=== PATIENT | female | born 1975 | race Caucasian/White ===

== ENCOUNTER 2017-01-05 04:50 | Emergency (ER) | payer MEDICAID, OTHER ==
[~2017-01-05 04:50] MED LIST: DITR5TAB PO; FERR324T2 PO; GLYB5TA PO; LISI10TA4 PO; METF1000 PO; OMEP20CA3 PO; SIMV5TAB4 PO; SUCR1SS PO; TYLE325T5 PO
[2017-01-05] MEDS ORDERED: NS 1,000 ML IV ONE (06:15)
[2017-01-05] MEDS ORDERED: MORPHINE 4 MG/ML 1ML SYRINGE IV ONE ×3 (06:15→10:15)
[2017-01-05] MEDS ORDERED: METOCLOPRAMIDE INJ 10MG/2ML VIAL (J2765) IV ONE (06:15)
[2017-01-05 06:41] LABS: BASO % 0.3 % (0.0-1.0); EOS # 0.2 K/mm3 (0.0-0.50); EOS % 0.8 % (0.0-3.0); LARGE UNSTAINED CELL # 0.3 K/mm3 (0.0-0.4); LARGE UNSTAINED CELL % 1.4 % (0.0-4.0); LYMPH # 2.3 K/mm3 (1.5-4.5); LYMPH % 12.4 % (24.0-44.0); MEAN CORPUSCULAR HEMOGLOBIN 24.8 pg (27.0-33.0); MEAN CORPUSCULAR HGB CONC 30.3 g/dl (32.0-36.5); MEAN CORPUSCULAR VOLUME 81.8 fl (80.0-96.0); MONO # 0.8 K/mm3 (0.0-0.8); MONO % 4.3 % (0.0-5.0); NEUTROPHILS # 15.2 K/mm3 (1.8-7.7); NEUTROPHILS % 80.9 % (36.0-66.0); PLATELET COUNT, AUTOMATED 363 k/mm3 (150-450); RED CELL DISTRIBUTION WIDTH 15.6 % (11.5-14.5); WHITE BLOOD COUNT 18.8 K/mm3 (4.0-10.0)
[2017-01-05 06:47] LABS: INR 0.93
--- NOTE | 2017-01-05 07:24 | ECGEPIP ---
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
[2017-01-05] MEDS ORDERED: ISOVUE-370 76% 100ML VIAL (Q9967) As Ordered ONE (08:32)
[2017-01-05 08:35] LABS: ALBUMIN 3.5 GM/DL (3.2-5.2); ALBUMIN/GLOBULIN RATIO 0.76 (1.00-1.93); ALKALINE PHOSPHATASE 126 U/L (45-117); ALT/SGPT 23 U/L (12-78); AMYLASE 44 U/L (25-115); ANION GAP 10 MEQ/L (8-16); AST/SGOT 15 U/L (15-37); BILIRUBIN,DIRECT 0.2 MG/DL (0.0-0.2); BILIRUBIN,TOTAL 0.8 MG/DL (0.2-1.0); BLOOD UREA NITROGEN 10 MG/DL (7-18); CALCIUM LEVEL 9.1 MG/DL (8.5-10.1); CARBON DIOXIDE LEVEL 25 MEQ/L (21-32); CHLORIDE LEVEL 103 MEQ/L (98-107); CREATININE FOR GFR 0.91 MG/DL (0.55-1.02); GLOMERULAR FILTRATION RATE > 60.0 (>58); GLUCOSE, FASTING 391 MG/DL (70-105); POTASSIUM SERUM 4.2 MEQ/L (3.5-5.1); SODIUM LEVEL 138 MEQ/L (136-145); TOTAL PROTEIN 8.1 GM/DL (6.4-8.2)
--- NOTE | 2017-01-05 09:36 | REP ---
Clinical: Acute abdominal pain. Technique: Axial contrast enhanced images from the lung bases to the pubic symphysis using oral and 100 ml Isovue 370 intravenous contrast material with coronal and sagittal re-formations. Comparison: 06/07/2015. Findings: A large right lower quadrant ventral hernia through the rectus sheath contains multiple loops of bowel and mesenteric fat with scattered areas of fatty infiltration. Few mildly distended loops of bowel are noted and an acute partial obstruction related to the hernia and/or adhesions within the hernia cannot be excluded. Scattered surgical clips suggest prior hernia repair. The hernia itself is essentially unchanged compared to 2014. A smaller fat containing periumbilical hernia measuring 5 cm is also unchanged. There is no evidence for pneumoperitoneum, ascites, or drainable collection/abscess. Liver, spleen, pancreas, bilateral adrenal glands and kidneys are normal / stable. The patient is status post cholecystectomy. Descending and sigmoid colon are normal. Normal appendix identified. Pelvis demonstrates normal bladder and age-appropriate uterus/adnexa. No pelvic fluid. No obvious intraperitoneal or retroperitoneal adenopathy. The abdominal aorta and vasculature is normal. Osseous structures are stable. Lung bases are clear. Impression: 1. Large right lower quadrant ventral hernia containing multiple loops of bowel with few mildly prominent loops raise the possibility of partial obstruction possibly related to the hernia itself or associated adhesions. Evidence of prior hernia repair noted. 2. Stable 5 cm fat containing periumbilical hernia. 3. No free air. No free fluid. No drainable collection/abscess. No adenopathy or mass. Signed by Ryley Roach MD 01/05/2017 09:28 A
[2017-01-05 10:37] VITALS: BP 186/86
[2017-01-05] MEDS ORDERED: PATIENT COMMENT (11:02)
[2017-01-05] MEDS ORDERED: KETOROLAC 30 MG/ML VIAL (J1885) IV ONE (12:15)
[2017-01-05] MEDS ORDERED: CARA1TAB2 PO (13:09)
--- NOTE | 2017-01-05 20:32 | ER ---
DATE OF CONSULTATION: 01/05/2017 REASON FOR CONSULTATION: Abdominal pain with large incisional hernia. HISTORY OF PRESENT ILLNESS: The patient is a 41-year-old morbidly obese diabetic woman who presented to the emergency department at approximately 4:50 in the morning on 01/05/2017. She complained of onset of abdominal pain with nausea. The pain had started at about 2 o'clock in the morning as a sharper cramping pain. This was across the mid to upper abdomen. She initially induced vomiting thinking that this might make her feel better, but she subsequently had further vomiting spontaneously. She denied any hematemesis. The patient presented to the emergency department and received analgesics. She had a CT scan obtained that showed a large right lower quadrant incisional hernia with multiple loops of small bowel within the hernia. It was unclear if there might be some degree of obstruction, and I was consulted to evaluate the patient regarding the possibility of a small bowel obstruction associated with her hernia. The patient reports that she has had several episodes of what she refers to as gastritis. She reports that 3-4 months ago she had been at [facility] with the same sort of crampy abdominal pain and nausea and vomiting. In speaking with her, she also reported an episode treated at [facility]. This was about 4 years ago. In looking through her electronic medical record, I had placed the patient on observation back on 06/08/2015 for what sounds like a very similar episode of abdominal pain with some nausea and vomiting with findings of a large ventral hernia. ALLERGIES: The patient denies any known drug allergies. MEDICATIONS: Patient has been on metformin and glyburide for diabetes and some blood pressure medications, as well as some Coumadin for history of some sort of blood clot in the left upper extremity, but reports that she has not taken any of her medications for the last 2 months or so. MEDICAL HISTORY: Her medical history is significant for morbid obesity. She has a history of diabetes mellitus. She has hypertension and hypercholesterolemia, as well as gastroesophageal reflux disease. PAST SURGICAL HISTORY: The patient reports having had a laparoscopic cholecystectomy years ago. She has had two sections, this was also many years ago. She reports that she underwent repair of a ventral hernia in [place] 17 years ago, but that she developed a recurrence following this. SOCIAL HISTORY: The patient is apparently now living in [place]. She reports that her most recent physician with whom she had any relationship was [facility] in [place]. The patient has a boyfriend apparently also in the area. She is continuing to smoke a pack of cigarettes per day. FAMILY HISTORY: Noncontributory. REVIEW OF SYSTEMS: The patient denies any chest pain or palpitations. She has not had a cough, wheezing or sputum production. She denies any upper respiratory infection symptoms. She reports a history of some sort of thrombosis in her left upper extremity. She reports that she had numbness in her arm and was seen in [place] for this particular problem about a year ago. She was on Coumadin. When I went to feel for a pulse in the left wrist, she said I would not feel it, making me think that this was an arterial episode, but it is unclear whether this represented a deep vein thrombosis (DVT) or actually an arterial thrombosis. She was on Coumadin, which she again is not taking currently. She denies any history of stroke or TIA. She has no history of melena, hematochezia, hepatitis, pancreatitis or peptic ulcer disease. PHYSICAL EXAMINATION: Reveals a morbidly obese woman who appears unkempt. She has poor dentition. She is alert, oriented and cooperative with my exam. Her vital signs most recently showed a temperature most recently of 97.6 with a pulse of 76, blood pressure 186/86 and respirations of 18. The skin is warm and dry. Sclerae are anicteric. Neck is supple without mass. Heart exam shows a regular rhythm. The lungs show clear breath sounds bilaterally anteriorly. The abdomen is markedly obese. She has an old low midline scar extending from the umbilicus inferiorly. There is a very large hernia mass in the right lower quadrant. This is about 30 cm across. There is some induration, particularly in the lateral aspect of this soft tissue mass, but she does not report any direct tenderness in this area. There is no suggestion of any reduction of the hernia with the manipulation of the mass. She also has a fatty bulge above the umbilicus, which is about 6 to 7 cm in diameter. She does have some bowel sounds in the abdomen on auscultation. Extremities show palpable radial pulses and dorsalis pedis pulses bilaterally. Laboratory studies include a white count of 18.8 with a differential showing 81% neutrophils and 12% lymphocytes. Hemoglobin is 14 with a hematocrit of 45 and platelet count is 363,000. The patient's chemistry profile shows a sodium of 138, potassium 4.2, chloride 103, CO2 of 25, BUN is 10 with a creatinine of 0.91 and glucose is 391. Liver function tests show a slight elevation of the alkaline phosphatase to 126 and are otherwise normal. Her total protein is 8.1 with an albumin of 3.5. Chest CT, INR and PTT are normal. A catheterized urine specimen showed 3+ glucose, 1+ ketones, 1+ blood and had no white or red cells on microscopic exam. A lipase was normal at 103. The patient had received a bolus of normal saline, as well as Reglan, morphine, and Ketorolac. CT scan imaging I reviewed personally. She does have a very large ventral hernia in the right lower quadrant. She has some hemoclips in the area of the gallbladder fossa consistent with a previous cholecystectomy. There are some metallic tacks in the anterior abdominal wall near her hernia, suggesting the previous repair. There may be a piece of prosthetic mesh in this area as well. She does not appear to have any significant dilated loops of bowel evident within the abdomen. There is a significant amount of small bowel and perhaps part of her colon within her hernia. There appears to be some edema or inflammatory change in the wall of the hernia anteriorly and laterally. She had a CT scan at the time of her admission back in May 2015. I reviewed this as well and this shows a very similar appearance of the hernia in her lower abdomen. The radiologist noted on her report from today the hernia itself appeared essentially unchanged compared to 2015. FINAL DIAGNOSES: 1. Abdominal pain with nausea and vomiting, possible early small bowel obstruction. 2. Large incarcerated lower abdominal incisional hernia. 3. Morbid obesity. 4. Diabetes mellitus. 5. Hypertension. 6. Hypercholesterolemia. 7. Gastroesophageal reflux. 8. History of gastritis. 9. Nicotine addiction. 10. Complete noncompliance with medical therapy. 11. Probable history of deep vein thrombosis (DVT) in left upper extremity. RECOMMENDATIONS: I advised the patient that we cannot tell for certain whether there is a problem associated with her hernia without monitoring her in the hospital. I advised her that there may be an obstruction associated with her hernia but that only time would tell. I advised her that she should be admitted to the hospital for management. This would also allow us to try to reinstitute medical therapy. Her glucose is quite high, as is her white blood cell count. The patient advised me that she thinks this is just gastritis and that she also has a court date for the morning of the and is unwilling to come into the hospital. I advised her that I thought there was a risk to her life and health if she did not follow through on treatment of her abdominal pain and allow us to admit her and treat her and she declined admission and further treatment. I advised her that if she is going to leave the hospital that I would not recommend this and would recommend against it, but if she leaves she should return if she finds that her condition is worsening.
== END 2017-01-05 13:26 | disposition left against medical advice (07) ==
LOC: EDBD 04:50 → M ED 06:45
DX: R10.9 Unspecified abdominal pain (principal); R11.10 Vomiting, unspecified; I10 Essential (primary) hypertension; E11.9 Type 2 diabetes mellitus without complications; K21.9 Gastro-esophageal reflux disease without esophagitis; E78.00 Pure hypercholesterolemia, unspecified; E66.01 Morbid (severe) obesity due to excess calories; K43.2 Incisional hernia without obstruction or gangrene; F17.210 Nicotine dependence, cigarettes, uncomplicated; Z91.19 Patient's noncompliance with other medical treatment and regimen

== ENCOUNTER 2017-01-06 01:51 | Inpatient (IN) | payer OTHER ==
[~2017-01-06] VITALS: Ht 160 cm; Wt 172.6 kg
[~2017-01-06 01:51] MED LIST changes: +CARA1TAB2 PO; +PATIENT COMMENT
[2017-01-06] MEDS ORDERED: SUCRALFATE 1 GM TAB PO ONE (05:15)
[2017-01-06] MEDS ORDERED: GASTROGRAFIN SOLUTION 30ML (Q9963) As Ordered ONE (05:43)
[2017-01-06] MEDS ORDERED: METAL LOCK LOOP XX ONE (05:44)
[2017-01-06] MEDS ORDERED: GASTROGRAFIN SOLUTION 30ML (Q9963) PO ONE ×2 (06:00→06:30)
[2017-01-06 06:13] LABS: BASO % 0.2 % (0.0-1.0); EOS # 0.1 K/mm3 (0.0-0.50); EOS % 0.3 % (0.0-3.0); LARGE UNSTAINED CELL # 0.3 K/mm3 (0.0-0.4); LARGE UNSTAINED CELL % 1.4 % (0.0-4.0); LYMPH # 1.2 K/mm3 (1.5-4.5); LYMPH % 4.6 % (24.0-44.0); MEAN CORPUSCULAR HEMOGLOBIN 24.9 pg (27.0-33.0); MEAN CORPUSCULAR HGB CONC 30.6 g/dl (32.0-36.5); MEAN CORPUSCULAR VOLUME 81.4 fl (80.0-96.0); MONO # 1.2 K/mm3 (0.0-0.8); MONO % 4.9 % (0.0-5.0); NEUTROPHILS % 88.6 % (36.0-66.0); PLATELET COUNT, AUTOMATED 358 k/mm3 (150-450); RED CELL DISTRIBUTION WIDTH 15.6 % (11.5-14.5); WHITE BLOOD COUNT 24.8 K/mm3 (4.0-10.0)
[2017-01-06 06:42] LABS: INR 0.99
[2017-01-06 06:52] LABS: ALBUMIN 3.4 GM/DL (3.2-5.2); ALBUMIN/GLOBULIN RATIO 0.71 (1.00-1.93); ALKALINE PHOSPHATASE 127 U/L (45-117); ALT/SGPT 34 U/L (12-78); AMYLASE 19 U/L (25-115); ANION GAP 12 MEQ/L (8-16); AST/SGOT 37 U/L (15-37); BILIRUBIN,DIRECT 0.4 MG/DL (0.0-0.2); BILIRUBIN,TOTAL 2.3 MG/DL (0.2-1.0); BLOOD UREA NITROGEN 7 MG/DL (7-18); CALCIUM LEVEL 9.1 MG/DL (8.5-10.1); CARBON DIOXIDE LEVEL 27 MEQ/L (21-32); CHLORIDE LEVEL 98 MEQ/L (98-107); CREATININE FOR GFR 1.04 MG/DL (0.55-1.02); GLOMERULAR FILTRATION RATE > 60.0 (>58); GLUCOSE, FASTING 386 MG/DL (70-105); POTASSIUM SERUM 4.3 MEQ/L (3.5-5.1); SODIUM LEVEL 137 MEQ/L (136-145); TOTAL PROTEIN 8.2 GM/DL (6.4-8.2)
[2017-01-06] MEDS ORDERED: PIPERACILLIN/TAZOBACTAM SOD 2.25 GM in D5W MINI-BAG PLUS 50 ML IV ONE (07:30)
[2017-01-06] MEDS ORDERED: SODIUM CHLORIDE 0.9% 1000 ML IV ONE ×2 (07:30→17:00)
[2017-01-06] MEDS ORDERED: ISOVUE-370 76% 100ML VIAL (Q9967) As Ordered ONE (08:09)
--- NOTE | 2017-01-06 08:24 | REP ---
Clinical: Abdominal pain. Technique: Upright view of the chest with supine and upright views of the abdomen and pelvis. Findings: Frontal upright view of the chest demonstrates no free air below the diaphragm and no basilar atelectasis or effusion. Bowel gas pattern suggests small bowel obstruction with dilated air filled loops of small bowel in the mid abdomen and a normal caliber of gas filled colon. Impression: Findings suggest element of small bowel obstruction. Signed by Ryley Roach MD 01/06/2017 08:16 A
--- NOTE | 2017-01-06 08:55 | REP ---
Clinical: Continued abdominal pain. Technique: Axial contrast enhanced images from the lung bases to the pubic symphysis using oral and 100 ml Isovue 370 intravenous contrast material with coronal and sagittal re-formations. Comparison: 01/05/2017. Findings: Current examination demonstrates small bowel obstruction which has increased from the prior examination. Dilated fluid-filled loops of small bowel now measure greater than 4.3 cm maximal diameter. The findings are likely related to a large irregular ventral hernia which clearly contains both dilated and nondilated small bowel and extensive mesenteric/inflammatory stranding as well as surgical clips from prior procedure and multiple acutely angulated loops of small bowel. The colon appears relatively unaffected and collapsed. There is no free air, free fluid or drainable collection/abscess. Liver, spleen, pancreas, bilateral adrenal glands and kidneys are stable. The patient is status post cholecystectomy. Pelvis demonstrates partially collapsed normal bladder and age-appropriate uterus/adnexa. No adenopathy. No obvious mass lesion. Vasculature is grossly normal and without aneurysm. Skeletal structures demonstrate age-related changes. Lung bases are clear. Impression: 1. Increasing small bowel obstruction likely caused by related to the large ventral hernia which contains inflammatory and postsurgical changes as well as acutely angulated loops of bowel. The obstruction itself may be secondary to ventral hernia or associated adhesions and may be multifocal. 2. No free air, free fluid, or drainable collection/abscess. Signed by Ryley Roach MD 01/06/2017 08:46 A
[2017-01-06] MEDS ORDERED: MORPHINE 4 MG/ML 1ML SYRINGE IV ONE (09:00)
[2017-01-06] MEDS ORDERED: ONDANSETRON 4MG/2ML VIAL (J2405) IV ONE (09:00)
[2017-01-06 11:50] VITALS: BP 160/61
[2017-01-06] MEDS ORDERED: NS 1,000 ML IV SCH (12:29)
[2017-01-06] MEDS ORDERED: GLUCAGON FOR INJ 1 MG VIAL (J1610) SC PRN (12:30)
[2017-01-06] MEDS ORDERED: ONDANSETRON 4MG/2ML VIAL (J2405) IV PRN (12:30)
[2017-01-06] MEDS ORDERED: MORPHINE 2 MG/ML 1ML SYRINGE IV PRN ×2 (12:30→17:00)
[2017-01-06] MEDS ORDERED: DEXTROSE 50% 50 ML SYRINGE IV PRN (12:30)
[2017-01-06] MEDS ORDERED: GLUCOSE 4 GM CHEW TABLET PO PRN (12:30)
[2017-01-06] MEDS: HumaLOG INSULIN (NovoLOG) PER UNIT SC SCH ×2 (12:30→17:45)
[2017-01-06 13:58] LABS: CHOLESTEROL LEVEL 272 MG/DL (<200); TRIGLYCERIDES LEVEL 219 MG/DL (<150)
[2017-01-06] MEDS ORDERED: PIPERACILLIN/TAZOBACTAM SOD 3.375 GM in D5W MINI-BAG PLUS 50 ML IV SCH (14:00)
--- NOTE | 2017-01-06 14:10 | HPEPDOC ---
General Date of Admission Jan 06, 2017 at 12:29 Chief Complaint The patient is a 41-year-old female admitted with a reason for visit of Incarcerated Ventral Hernia. History of Present Illness 41-year-old female with a past medical history of morbid obesity, diabetes mellitus, hypertension, dyslipidemia, GERD, ? History of left upper extremity DVT, and non-adherence to medical therapy presented to the ER with a chief complaint of abdominal pain. The patient actually presented to the ER yesterday with complaints of the same but left AGAINST MEDICAL ADVICE at the time, as she stated that she had a court date scheduled for today. The patient states that her abdominal pain started 3 days ago, and describes this as intermittently sharp abdominal 10/10 pain across all quadrants. During this time, the patient states that she has had 2 episodes of nonbloody emesis, and notes that she has been belching quite a bit. She also notes that she has not had a bowel movement in 4 days, but does note that she is passing some flatus. The patient was evaluated in the ER yesterday by Dr. Bruce of surgery. A CT scan of the abdomen was obtained, which showed Small bowel obstruction likely secondary to a large ventral hernia which contains inflammatory and postsurgical changes as well as acutely angulated loops of bowel. After leaving AMA yesterday, the patient returned today with similar complaints of abdominal pain. She was evaluated by Dr. Sharma of surgery in the ER, who has recommended admission to the medical service given the patient's chronic medical comorbidities. The patient will be treated at this time with NG tube placement, IV fluid hydration , pain control, and bowel rest. Home Medications Scheduled Sucralfate (Carafate) 1 Gm Tab 1 GM PO ACHS 4 times per day on an empty stomach 1 hour before meals and at bedtime Miscellaneous Medications ([Patient Comment ]) (Reported) PATIENT STATES SHE HAS NOT BEEN TAKING ANY OF HER MEDICATIONS FOR 2 MONTHS Allergies Coded Allergies: No Known Allergies (Unverified , 01/06/17) Past Medical History Medical History As noted in the HPI. Surgical History History of laparoscopic cholecystectomy, 2 sections, ventral hernia repair in [place] approximately 15+ years ago. Family History Significant Family History: No pertinent family hx Social History * Smoker: cigarettes (smokes 1 pack per day) Alcohol: Denies Drugs: denies Review of Symptoms Other systems 10 point review of systems negative unless otherwise specified in HPI. Physical Examination General Exam: Positive: Alert, Cooperative, Mild Distress, Other (morbidly obese appearing) ENT Exam: Positive: Atraumatic, Mucous membr. moist/pink Neck Exam: Negative: JVD Chest Exam: Positive: Clear to auscultation, Normal air movement Heart Exam: Positive: Normal S1, Normal S2, Tachycardic Telemetry: Positive: Sinus, Tachycardia Abdomen Exam: Positive: Other (patient noted to have a markedly obese abdomen. Midline scar noted inferior to the umbilicus. The patient is noted to have a large hernia in the right lower quadrant, with minimal tenderness on palpation. No guarding, rebound tenderness, or rigidity noted. Positive bowel sounds) Extremity Exam: Negative: Swelling, Tenderness Vital Signs As noted in the HPI. Laboratory Data Labs 24H Laboratory Tests 2 01/06/17 05:59: Aspartate Amino Transf (AST/SGOT) 37, Alanine Aminotransferase (ALT/SGPT) 34, Alkaline Phosphatase 127H, Total Bilirubin 2.3#H, Direct Bilirubin 0.4H, Albumin 3.4, Albumin/Globulin Ratio 0.71L, Amylase Level 19L, Anion Gap 12, White Blood Count 24.8H, Red Blood Count 5.68H, Hemoglobin 14.2, Hematocrit 46.3 , Mean Corpuscular Volume 81.4, Mean Corpuscular Hemoglobin 24.9L, Mean Corpuscular Hemoglobin Concent 30.6L, Red Cell Distribution Width 15.6H, Platelet Count 358, Neutrophils (%) (Auto) 88.6H, Lymphocytes (%) (Auto) 4.6L, Monocytes (%) (Auto) 4.9, Eosinophils (%) (Auto) 0.3, Basophils (%) (Auto) 0.2, Neutrophils # (Auto) 22.0H, Lymphocytes # (Auto) 1.2L, Monocytes # (Auto) 1.2H, Eosinophils # (Auto) 0.1, Basophils # (Auto) 0.0, Calcium Level 9.1, Cholesterol Level 272H, Cholesterol/HDL Ratio 5.132H, Creatine Kinase MB 3.5, Creatine Kinase MB Relative Index 5.30H, Glomerular Filtration Rate > 60.0, HDL Cholesterol 53, LDL Cholesterol 175.2H, Large Unclassified Cells # 0.3, Large Unclassified Cells % 1.4, Lipase 66L, Non-HDL Cholesterol (LDL + VLDL) 219, Total Creatine Kinase 66, Total Protein 8.2, Triglycerides Level 219H, Troponin I < 0.02 01/06/17 06:14: Activated Partial Thromboplast Time 28.5, Lactic Acid Level 3.6*H, Prothromb Time International Ratio 0.99, Prothrombin Time 13.2 01/06/17 11:02: Lactic Acid Followup at 4 Hours 3.4*H 01/06/17 12:29: CBC/BMP Laboratory Tests 01/06/17 05:59 Red Blood Count 5.68 H, Mean Corpuscular Volume 81.4, Mean Corpuscular Hemoglobin 24.9 L, Mean Corpuscular Hemoglobin Concent 30.6 L, Red Cell Distribution Width 15.6 H, Neutrophils (%) (Auto) 88.6 H, Lymphocytes (%) (Auto ) 4.6 L, Monocytes (%) (Auto) 4.9, Eosinophils (%) (Auto) 0.3, Basophils (%) ( Auto) 0.2, Neutrophils # (Auto) 22.0 H, Lymphocytes # (Auto) 1.2 L, Monocytes # (Auto) 1.2 H, Eosinophils # (Auto) 0.1, Basophils # (Auto) 0.0 Microbiology Microbiology 01/06/17 Blood Culture, Received Pending Plan / VTE VTE Prophylaxis Ordered?: Yes Plan Plan Small bowel obstruction secondary to large ventral hernia with incarceration We will admit to PCU NG tube placed, with 300 mL of brownish/green output noted IV fluid hydration Pain control We'll keep the patient nothing by mouth Encouraged patient to be up in chair, out of bed Surgery on board, will follow up with their recommendations moving forward Leukocytosis, lactic acidosis Likely secondary to above Blood cultures ordered Patient empirically covered with Zosyn We will continue with IV fluid hydration We will repeat lactic acid level Patient remains hemodynamically stable at this time, and afebrile here Diabetes mellitus Patient has a history of noncompliance, and currently does not take any medications We will start her on an insulin sliding scale as she is nothing by mouth right now We will check a hemoglobin A1c level Patient does apparently follow KATHERIN Oconnell as an outpatient, we will attempt to obtain records Hypertension Again the patient is not on any medications Her blood pressure was initially elevated with a systolic blood pressure the 160s, and I do suspect that some of this is related to abdominal pain secondary to SBO Her blood pressure has normalized following administration of analgesics Hydralazine 10 mg IV every 6 hours added for systolic blood pressure greater than 150 Dyslipidemia Patient on any meds Lipid panel ordered ? History of left upper extremity DVT in April 2016 Patient apparently took Coumadin for 3 months and then was told to stop according to her We will obtain outpatient records from the patient's PCP for further clarification GERD Continue IV Protonix Morbid obesity BMI noted to be 66.4 I have discussed the adverse health implications of an elevated body mass index with the patient DVT prophylaxis-heparin subcutaneous The patient will be admitted under the service of Dr. Ramos will begin to follow the patient on 01/07 at 7 AM. ANDREAS COPE MD Jan 06, 2017 14:10
[2017-01-06] MEDS: hydrALAZINE INJ 20 MG/ML VIAL IV SCH ×2 (14:33→20:00)
[2017-01-06 15:50] VITALS: BP 138/67
[2017-01-06] MEDS: HEPARIN SOD (PORCINE) 5000 UNITS/ML VIAL SC SCH (16:06)
[2017-01-06] MEDS: PANTOPRAZOLE 40MG INJ (PROTONIX) (C9113) IV SCH (16:06)
[2017-01-06] MEDS ORDERED: ERTAPENEM 1 GM INJ (INVanz) (J1335) As Ordered ONE (19:02)
[2017-01-06] MEDS ORDERED: ERTAPENEM 1 GM INJ (INVanz) (J1335) IV ONE (20:05)
[2017-01-06] MEDS ORDERED: PROPOFOL 200 MG/20 ML VIAL As Ordered ONE (20:12)
[2017-01-06] MEDS ORDERED: SUCCINYLCHOLINE 100 MG/5 ML SYRINGE (J0330) As Ordered ONE (20:12)
[2017-01-06] MEDS ORDERED: ONDANSETRON 4MG/2ML VIAL (J2405) As Ordered ONE (20:12)
[2017-01-06] MEDS ORDERED: fentaNYL 250 MCG/5 ML INJECTION (J3010) As Ordered ONE ×2 (20:12→20:19)
[2017-01-06] MEDS ORDERED: LIDOCAINE 2% INJ 100 MG/5 ML SDV (FOR ANES.) As Ordered ONE (20:12)
[2017-01-06] MEDS ORDERED: MIDAZOLAM INJ 2 MG/2 ML VIAL (J2250) As Ordered ONE ×5 (20:12→23:21)
[2017-01-06] MEDS ORDERED: ROCURONIUM BROMIDE 50 MG/5 ML VIAL As Ordered ONE ×3 (20:12→21:22)
[2017-01-06] MEDS ORDERED: PHENYLEPHRINE INJ 10MG/ML VIAL (J2370) As Ordered ONE (20:12)
[2017-01-06] MEDS ORDERED: HumuLIN R (REGULAR) INSULIN (NovoLIN R) **100U/ML** PER UNIT As Ordered ONE (20:59)
--- NOTE | 2017-01-06 21:03 | ECGEPIP ---
Stationary ECG Study [facility] - ED Test Date: 2017-01-06 Pat Name: DARRYL GIL Department: Room: - Gender: F Sports Intern: jaylen : 1975 Requested By: Opal Elias Order Number: [id number] Reading MD: Opal Elias Measurements Intervals [place] Rate: 132 P: 49 RI: 146 QRS: 2 QRSD: 86 T: 73 QT: 292 QTc: 434 Interpretive Statements SINUS TACHYCARDIA NONSPECIFIC ST & T-WAVE ABNORMALITY ABNORMAL RHYTHM ECG INCREASED RATE 01/05/17 6:53 Electronically Signed On 01-06-2017 21:03:01 EDT by Opal Elias
[2017-01-06 21:47] LABS: ABG BASE EXCESS -5.3 (-2.0-2.0); ABG DEVICE MECHAN. VENT; ABG HCO3 22.1 MEQ/L (22.0-26.0); ABG STANDARD HCO3 20.1 MEQ/L (22.0-26.0); ABG TOTAL CO2 23.7 MEQ/L (22.0-29.0); ABG pH (ARTERIAL) 7.255 UNITS (7.350-7.450)
[2017-01-06] MEDS ORDERED: CALCIUM CHLORIDE 10% 1 GM/10 ML SYR As Ordered ONE (22:11)
[2017-01-06] MEDS: IPRATROPIUM 0.5MG/ALBUTEROL 2.5MG INH SOL UD 3ML (DUONEB)(J7620) NEB SCH (22:30)
[2017-01-06 23:04] LABS: MEAN CORPUSCULAR HGB CONC 30.1 g/dl (32.0-36.5); MEAN CORPUSCULAR VOLUME 82.9 fl (80.0-96.0); RED CELL DISTRIBUTION WIDTH 15.6 % (11.5-14.5); WHITE BLOOD COUNT 18.8 K/mm3 (4.0-10.0)
[2017-01-06] MEDS: MIDAZOLAM INJ 2 MG/2 ML VIAL (J2250) IV PRN ×2 (23:05→23:21)
[2017-01-06] MEDS ORDERED: fentaNYL 100 MCG/2 ML INJECTION (J3010) As Ordered ONE (23:06)
[2017-01-06] MEDS: fentaNYL 100 MCG/2 ML INJECTION (J3010) IV PRN ×2 (23:25→23:40)
[2017-01-06 23:27] LABS: CALCIUM LEVEL 8.7 MG/DL (8.5-10.1); CREATININE FOR GFR 1.19 MG/DL (0.55-1.02); GLOMERULAR FILTRATION RATE 52.7 (>58); POTASSIUM SERUM 3.9 MEQ/L (3.5-5.1)
[2017-01-06] MEDS ORDERED: MIDAZOLAM INJ 2 MG/2 ML VIAL (J2250) IV PRN (23:30)
[2017-01-06] MEDS ORDERED: REFRIGERATOR IV KEYS XX PRN ×2 (23:30→23:45)
--- NOTE | 2017-01-06 23:30 | REPUSA ---
Clinical history: postoperative. Comparison: None. Findings: The right internal jugular central venous catheter is within the superior vena cava. Endotr acheal tube is in place, with the tip approximately 4 cm above the Jaqueline. A nasogastric tube is seen passing into the stomach. The mediastinum and cardiac silhouette are within normal limits. There is consolidation of the right upper lobe. No mediastinal shift is noted. The left lung is clear.. No ple ural effusion or pneumothorax is seen. The osseous structures and soft tissues are unremarkable. Impression: Consolidation of the right upper lobe, either representing pneumonia or atelectatic colla pse of the right upper lobe. Follow-up is suggested as clinically indicated.
[2017-01-06] MEDS ORDERED: IPRATROPIUM 0.5MG/ALBUTEROL 2.5MG INH SOL UD 3ML (DUONEB)(J7620) As Ordered ONE (23:36)
[2017-01-06] MEDS ORDERED: MIDAZOLAM HCL 100 MG in D5W 80 ML IV SCH (23:45)
[2017-01-06] MEDS: fentaNYL CITRATE 20 ML in NS 80 ML IV SCH (23:45)
[2017-01-07] VITALS (42 sets, daily range): BP systolic 71–133; BP diastolic 51–84; O2SAT 92
[2017-01-07] MEDS ORDERED: IPRATROPIUM 0.5MG/ALBUTEROL 2.5MG INH SOL UD 3ML (DUONEB)(J7620) NEB PRN
[2017-01-07] MEDS: NOREPINEPHRINE BITARTRATE 8 MG in D5W 500 ML IV SCH ×2 (00:30→16:00)
[2017-01-07] MEDS ORDERED: MIDAZOLAM INJ 2 MG/2 ML VIAL (J2250) As Ordered ONE (00:32)
[2017-01-07] MEDS: MIDAZOLAM INJ 2 MG/2 ML VIAL (J2250) IV PRN ×4 (00:35→21:35)
--- NOTE | 2017-01-07 01:45 | CCN ---
DATE OF SERVICE: 01/06/2017 START TIME: 2319 STOP TIME: 2358 I was called to the postanesthesia care unit to assist in the management and attend Prisca Castañeda. I spoke at length with anesthesia, as well as Dr. Sharma from general surgery. In essence, this is a 41-year-old female with known insulin-dependent diabetes mellitus and hypertension who essentially stopped all of her medications about 2 months ago for unknown reasons. She presented to the emergency room (ER) yesterday with complaints of belly pain. Evaluation at that time showed what appeared to be a significant small bowel obstruction. It was recommended to her that she be admitted. She signed out AGAINST MEDICAL ADVICE (AMA) as she had some legal issues to attend to. She came back earlier today with complaints of worsening pain. She was initially admitted to the progressive care unit. Initial lactic acid 3.6 with reasonable renal function, BUN 7, creatinine 1.04. White blood cell count 24.8. She was placed on broad-spectrum antimicrobials and given intravenous (IV) fluids. Lactic acid franklyn to 6.1 and she was taken to the operating room. Intraoperatively, she was found to have a small bowel perforation with a large amount of spillage. She required significant small bowel resection. She received 6 liters of crystalloid intraoperatively and was given a significant dose of phenylephrine intraoperatively. In the recovery room, she was able to be weaned from the phenylephrine. She received an additional 2 liters of IV crystalloid. Central line placed in the right internal jugular vein by Dr. Sharma. CVPs ranged from 4-6. Heart rate in the 120s with a sinus mechanism. First chest x-ray done in the recovery room showed right upper lobe collapse. Repeat chest x-ray showed significant improvement in aeration of the right upper lobe after a mucus plug was suctioned from her endotracheal (ET) tube. Currently, on exam, heart rate 122-129 with a sinus mechanism, blood pressure 90 systolic via noninvasive cuff, 67 to approximately 80 by radial arterial (A) line with a mean arterial pressure anywhere from 62-64 via A-line. She is easily arousable, nods appropriately to questions. Pupils are reactive, sclerae clear. Trachea is midline. Nasogastric tube and oroendotracheal tube are in place, as well as a right internal jugular (IJ). Chest shows scattered rhonchi that do clear somewhat with suctioning. Expansion is symmetric. There may be some opening crackles. Air exchange, however, is reasonable. Cardiac exam is distant, tachycardic, but regular. Peripheral pulses are diminished, but palpable. No obvious edema at this point. Abdomen is morbidly obese, quiet and surgical dressings are intact. There is a drain in place. Extremities show no cyanosis or clubbing. Neurologically, as outlined above and she does move all extremities. Chest x-ray as outlined above. Most recent laboratories obtained now postoperatively show sodium 143, potassium 3.9, chloride 107, CO2 26, BUN 15, creatinine 1.19, lactic acid down to 4.2. White blood cell count 18.8, hemoglobin 12.6, platelet count 324,000. Repeat blood gas is pending. One done intraoperatively has a pH of 7.255, pCO2 51 and a pO2 of 122 on unknown ventilator settings. Broad-spectrum antimicrobials have been ordered by surgery. Deep venous thrombosis (DVT) and ulcer prophylaxis ordered by them as well. Serial glucose measurements with coverage have been ordered as well I see. Most pressing problems requiring my immediate presence at the bedside: 1. Respiratory acidosis. 2. Respiratory failure with both hypoxemia and hypercarbia. 3. Peritonitis. 4. Morbid obesity. 5. Insulin-dependent diabetes mellitus. 6. Status post small bowel resection. At this point, I am in agreement with aggressive volume resuscitation. Hopefully, we can get her CVP at least 8-10. She may require low-dose pressors. I have spoken with Dr. Sharma in this regard. They are continuing the current antimicrobials and glucose coverage. As outlined above, ulcer and deep venous thrombosis (DVT) prophylaxis are in place. Ventilator manipulations have been made by myself and we await a repeat blood gas. Bronchodilators have been ordered as well. I see, according to the chart, she smokes about a pack of cigarettes a day as well prior to her admission. Smoking cessation will be discussed with her when this is feasible. Dr. Sharma has informed the family of the grave nature of her condition as at this point she is critically ill. My suspicion is, given her presentation, she is likely to have further compromise before we begin to see any significant improvement. There is a very high likelihood she may not survive this event, especially with her other comorbid conditions. At this point, we will proceed as outlined above. I left the bedside at 2359 hours. 39 minutes of critical care time at bedside not including procedures. HAYDEN
[2017-01-07] MEDS: LR 1,000 ML IV SCH ×5 (01:53→21:35)
[2017-01-07] MEDS: hydrALAZINE INJ 20 MG/ML VIAL IV SCH (01:53)
[2017-01-07 01:55] LABS: ABG BASE EXCESS -5.1 (-2.0-2.0); ABG PARTIAL PRESSURE CO2 37.3 mmHg (35.0-45.0); ABG PARTIAL PRESSURE O2 82.3 mmHg (75.0-100.0); ABG STANDARD HCO3 20.3 MEQ/L (22.0-26.0); ABG TOTAL CO2 21.1 MEQ/L (22.0-29.0); ABG pH (ARTERIAL) 7.347 UNITS (7.350-7.450)
--- NOTE | 2017-01-07 02:02 | CR ---
DATE OF CONSULTATION: 01/06/2017 CHIEF COMPLAINT: Abdominal pain. HISTORY OF PRESENT ILLNESS: The patient is a 41-year-old morbidly obese female who was noncompliant with her home medications, has not taken any medications in over 2 months. She has a history of morbid obesity, diabetes, hypertension, dyslipidemia, gastroesophageal reflux disease (GERD). She came in to the emergency room on 01/05 with abdominal pain, nausea and vomiting and was found to have a small bowel obstruction and recommended to be admitted to the hospital. However, she left AGAINST MEDICAL ADVICE (AMA) saying that she had a court date today that she could not miss. She came back in again today with the same complaints and abdominal pain getting worse. She has been having more vomiting and lots of belching. No bowel movements in the past 4 days, passing some flatus. CT scan today compared to yesterday shows increase in the small bowel obstruction, likely secondary to multiple large ventral hernias was some inflammatory and postsurgical changes, very acutely angulated loops of bowel. Therefore, I was called to evaluate. She has had multiple episodes of small bowel obstruction in the past. All have been relieved without surgery, just medical management and already has a nasogastric (NG) tube placed in the emergency room (ER) that is putting out what looks like stool. PAST MEDICAL HISTORY: 1. Morbid obesity. 2. Diabetes. 3. Hypertension. 4. Dyslipidemia. 5. GERD. 6. Previous upper extremity deep venous thrombosis (DVT). PAST SURGICAL HISTORY: 1. Laparoscopic cholecystectomy. 2. Two (C) sections. 3. Ventral hernia repair with mesh over 15 years ago in [place]. ALLERGIES: None. HOME MEDICATIONS: None currently. SOCIAL HISTORY: Smokes a pack a day. Denies any drug or alcohol. FAMILY HISTORY: Noncontributory. REVIEW OF SYSTEMS: Pertinent positives and negatives as stated in the history of present illness (HPI). PHYSICAL EXAMINATION General: Patient is alert and oriented times three. No acute distress. Vital signs: Temperature 98, pulse 80, respirations 20, blood pressure 164/79, pulse oximetry 95% on room air. HEENT: Pupils equally round and react to light and accommodation. Heart: S1, S2, regular rate and rhythm. Lungs: Clear to auscultation bilaterally. Abdomen: Soft, tender diffusely. Positive rebound, positive guarding. Extremities: Bilateral lower extremity pitting edema. LABORATORY DATA: White count 24.8, platelets 358, hemoglobin 14.2. Potassium 4.3, creatinine 1.04, lactic acid 3.6, total bilirubin 2.3. Repeat lactic acid at 3:15 in the afternoon came up to 6.1. IMAGING STUDIES: CT abdomen and pelvis showed increasing small bowel obstruction likely caused by a large ventral hernia with inflammatory and postsurgical changes, as well as acutely angulated loops of bowel. No signs of free air, free fluid or drainable collection or abscesses. ASSESSMENT/PLAN: Patient is a 41-year-old female with multiple medical problems and she is noncompliant with her medications. She presented to the emergency room (ER) with likely bowel obstruction. Plan was to treat conservatively with nasogastric (NG) tube, intravenous (IV) fluids, antibiotics. However, over the past 6 hours, her lactic acid has increased, her pain is still persistent, her heart rate is starting to increase as well up to the 120s. With these findings, this is highly suspicious for incarcerated likely strangulated small bowel. Recommendation is to proceed with emergent surgery. Due to her size and comorbidities and the large ventral hernias, I explained to her that surgeries can be extremely difficult. It is emergent and likely would be life-saving for her. She also is at extremely high risk for complications including remaining on the ventilator for a long period of time, difficult extubation, possibility of open abdomen, infection, bleeding, hernia recurrence, new hernia formation, anastomosis leak if bowel resection is necessary and a possible need for further surgeries. She understood consent, understands the risks involved and agreed to surgery. She was taken to the operating room emergently on the evening of 01/06 for exploratory surgery and she will be monitored closely postoperatively in the intensive care unit (ICU).
[2017-01-07] MEDS: PANTOPRAZOLE 40MG INJ (PROTONIX) (C9113) IV SCH ×2 (02:07→14:50)
[2017-01-07] MEDS: KETOROLAC 30 MG/ML VIAL (J1885) IV SCH ×2 (02:07→08:22)
[2017-01-07] MEDS: HumaLOG INSULIN (NovoLOG) PER UNIT SC SCH ×4 (02:08→17:58)
[2017-01-07] MEDS: HEPARIN SOD (PORCINE) 5000 UNITS/ML VIAL SC SCH ×4 (02:10→21:35)
[2017-01-07 04:05] LABS: MEAN CORPUSCULAR HEMOGLOBIN 24.3 pg (27.0-33.0); MEAN CORPUSCULAR HGB CONC 29.4 g/dl (32.0-36.5); MEAN CORPUSCULAR VOLUME 82.7 fl (80.0-96.0); RED CELL DISTRIBUTION WIDTH 15.8 % (11.5-14.5); WHITE BLOOD COUNT 27.5 K/mm3 (4.0-10.0)
[2017-01-07 04:29] LABS: CALCIUM LEVEL 8.2 MG/DL (8.5-10.1); CREATININE FOR GFR 1.4 MG/DL (0.55-1.02); GLOMERULAR FILTRATION RATE 43.7 (>58); MAGNESIUM LEVEL 1.4 MG/DL (1.8-2.4); POTASSIUM SERUM 4.4 MEQ/L (3.5-5.1)
[2017-01-07 04:52] LABS: ALBUMIN/GLOBULIN RATIO 0.69 (1.00-1.93)
[2017-01-07 05:01] LABS: ALBUMIN 2.2 GM/DL (3.2-5.2); BILIRUBIN,TOTAL 4.4 MG/DL (0.2-1.0); TOTAL PROTEIN 5.4 GM/DL (6.4-8.2)
[2017-01-07] MEDS ORDERED: LR 500 ML IV ONE (05:15)
[2017-01-07 05:18] LABS: ABG BASE EXCESS -1.4 (-2.0-2.0); ABG PARTIAL PRESSURE CO2 42.8 mmHg (35.0-45.0); ABG PARTIAL PRESSURE O2 84.8 mmHg (75.0-100.0); ABG STANDARD HCO3 23.3 MEQ/L (22.0-26.0); ABG TOTAL CO2 25.3 MEQ/L (22.0-29.0); ABG pH (ARTERIAL) 7.367 UNITS (7.350-7.450)
[2017-01-07] MEDS: IPRATROPIUM 0.5MG/ALBUTEROL 2.5MG INH SOL UD 3ML (DUONEB)(J7620) NEB SCH ×6 (05:35→23:35)
[2017-01-07] MEDS ORDERED: LR 1,000 ML IV ONE ×2 (06:00→09:45)
[2017-01-07] MEDS ORDERED: NOREPINEPHRINE 4 MG/4 ML AMP ONE (06:55)
[2017-01-07] MEDS: fentaNYL CITRATE 20 ML in NS 80 ML IV SCH ×3 (08:19→17:39)
--- NOTE | 2017-01-07 08:27 | RO ---
DATE OF PROCEDURE: 01/06/2017 PREPROCEDURE DIAGNOSIS: Small bowel obstruction. POSTPROCEDURE DIAGNOSIS: Strangulated small bowel internal hernias and intra-abdominal adhesions and perforated small intestine. PROCEDURE: 1. Exploratory laparotomy. 2. Abdominal washout. 3. Extensive lysis of adhesions. 4. Small bowel resection with primary anastomosis. 5. Release of internal hernia. 6. Placement of right internal jugular central line using ultrasound guidance SURGEON: Dr. Sharma NEWSPAPER PUBLISHER: Dr. Santoyo ANESTHESIA: General. ESTIMATED BLOOD LOSS: 200. COMPLICATIONS: None. FLUIDS: 6 liters of lactated Ringers. Urine output 200 mL. INDICATIONS FOR PROCEDURE: The patient 41-year-old female with a small bowel obstruction that is failing conservative management, high risk for ischemic bowel, therefore recommendation was to proceed with emergent surgery. Risks and benefits, not limited to, but including bleeding, infection, hernia recurrence, new hernia formation, damage to surrounding structures, need for further surgery, possible anastomotic leak and possible long-term vent management were discussed in detail with the patient. Informed was obtained and procedure was planned. DESCRIPTION OF PROCEDURE: The patient brought back to operating room #3. After sufficient sedation, Kahn catheter was placed and an arterial line was also placed in the left radial by anesthesia. The abdomen was then sterilely prepped and draped with chlorhexidine. Following that, a 5 cm midline incision was made just above the umbilicus. Incision was carried down to level of fascia, which was opened up. Immediately upon entering the fascia, a large amount of succus was encountered. The incision was then extended inferiorly around the umbilicus and down through the previous midline incision. Multiple ventral hernias were encountered at this time along the midline incision, as well as at the umbilicus. These were all carefully taken down. Once the abdomen was entered, a lot of the drainage was aspirated out. Extensive lysis of adhesions was taken for about 2-1/2 hours to break up multiple hernias in the right lower quadrant. Upon doing so, we encountered a loop of small intestine that has was distended and perforated, also found a couple of loops on either side of the segment that were ischemic and highly angulated. All of these were carefully taken down. Once all of the hernias had been reduced along the entire right side, the small bowel was traced back to ligament of Treitz, run carefully distally all way to the terminal ileum. After doing so, we found the two ischemic segments, as well as a perforated segment over an area of about 50 cm. This entire area was then resected intact and a primary anastomosis was created. The area was resected. A [id number] anastomosis was then created using a ISAAK 100 stapler. Anastomosis was oversewn with #3-0 silk sutures and then a layer of Tisseel was placed along the incision. #0 Vicryl suture was used to approximate the mesentery defect. Once this was completed, a #19-Maltese Julien drain was placed on the left abdomen, placed through the pelvis and into the right side of the abdomen, it was laying right against the anastomosis. Once this was completed, the abdomen was irrigated with 2 liters of normal saline. The incision was then brought back together using running loop PDS suture, tied at the midline. Skin incisions were closed with anna. The drain was sewn in place with #3-0 nylon suture. The abdomen was then cleaned and dried, 4x4s and tape were applied thus ending that portion of procedure. Next, a right IJ central line was placed. The right neck was sterilely prepped and draped with chlorhexidine. Sterile ultrasound probe was used to evaluate the IJ. Needle was then placed under direct visualization with one attempt into the right internal jugular vein. Guidewire was then passed over top of the needle. The needle was removed. Small skin incision made at the base the needle with #11 blade scalpel. Dilator was then passed over top of the wire to dilate the skin and subcutaneous tissues. The dilator was then removed, and the central line was passed over top the guidewire into the vessel with minimal resistance. Guidewire was then removed. Catheter was flushed and sutured in place with #2-0 silk suture and covered with a sterile dressing. Catheter was in place. X-ray was done in the postanesthesia care unit to confirm proper placement and the lack of a pneumothorax. Once this was completed, the line was safely used.
--- NOTE | 2017-01-07 09:01 | REP ---
Clinical: Status post intubation. Comparison: 01/06/2017. Findings: Endotracheal tube is identified with its tip approximately 2 cm above the raf although evaluation is limited by overlying cardiac leads. A nasogastric tube courses below the left hemidiaphragm. Poor inspiratory effort noted with partial right upper lobe collapse and left lower lobe infiltrate. No obvious effusion. No pneumothorax. Skeletal structures intact. Impression: 1. Endotracheal tube and nasogastric tube in seemingly satisfactory position although evaluation is limited by overlying EKG leads. 2. Partial collapse of the right upper lobe and left lower lobe infiltrates. Signed by Ryley Roach MD 01/07/2017 08:53 A
[2017-01-07] MEDS: MAG SULF 1GM/100ML (MAG RUN) 1 GM in APPROPRIATE DILUENT 1 EA IV SCH ×2 (09:09→09:14)
--- NOTE | 2017-01-07 09:37 | CCN ---
DATE: 01/07/2017 START TIME: 0835 hours STOP TIME: 0909 hours I again attended Prisca Castañeda. She remains intubated and mechanically ventilated here in the intensive care unit (ICU). She is receiving adequate pain control by her report. She has required only minimal sedation. She is awake, alert, and able to write questions on the clipboard. Maximum temperature (t-max) overnight 98.1, heart rate is much improved from the 120s now into the upper 90s with a sinus mechanism. Blood pressure varies from 60 to 1-teens via the A-line on 6 mcg of Levophed currently. Urine out is averaging about 30 mL an hour. Last CVP 10. Chest x-ray shows lines and tubes in good position. There is still partial collapse of the right upper lobe but better aeration than yesterday in the recovery room. Current available laboratories done at 0354 show a sodium of 140, potassium 4.4, chloride 105, CO2 of 26, BUN 17, creatinine 1.4, glucose 362, lactic acid down to 2.5. Bilirubin mildly elevated at 4.4, AST only 40, ALT 48. White blood cell count 27.5, hemoglobin 12.8, platelet count 354,000. No differential done this morning. Most recent arterial blood gas on a PRVC, rate of 18, tidal volume of 450, PEEP of 8, FiO2 of 70% shows a pH of 7.367, PCO2 of 42.8, PO2 of 84.8. Saturation of 96.6%. PHYSICAL EXAMINATION: As outlined above, she is awake, alert, and appropriate. She follows all commands. She does move all extremities. Pupils are reactive. Sclerae clear. Membranes reasonably moist. Nasogastric tube and oroendotracheal tube are in place, as well as a right IJ central venous catheter. Chest shows good bilateral air entry. There is some rhonchi on the left. I do believe there is some dependent basilar crackles early in the inspiratory phase. Cardiac exam is distant but regular. Peripheral pulses are diminished, but I do believe are palpable. There is trace peripheral edema. Abdomen is quiet. Her dressings and drains are intact. Extremities are without cyanosis or clubbing. Neurologically, as outlined above. The most pressing problems requiring my presence at the bedside are: 1. Hypoxic respiratory failure. 2. Small bowel perforation with peritonitis, now status post resection. 3. Insulin-dependent diabetes mellitus with recent noncompliance. 4. Atelectasis. 5. Long-standing tobacco abuse. I have spoken at length with the primary service, as well as Dr. Sharma from general surgery. I do believe she would benefit from an increase in her IV fluids and we will see how she does with the mild increase in her CVP. With the mild bump in her creatinine, we will get rid of her Toradol as well. Ulcer and deep vein thrombosis (DVT) prophylaxis in place. Sliding scale insulin with Accu-Cheks have been ordered already. If she is not able to be fed in the very near future (I will discuss this further with Dr. Sharma), then she should begin TPN. I am in agreement with her current antimicrobial choice. There are no plans for extubation today, but we will continue to wean her as able. In view of her presentation, she does remain critically ill. I left the bedside at 0909 hours. 34 minutes of critical care time was delivered at the bedside, not including procedures.
[2017-01-07] MEDS ORDERED: REFRIGERATOR IV KEYS XX PRN (11:56)
[2017-01-07] MEDS ORDERED: MIDAZOLAM INJ 5 MG/ML VIAL (J2250) As Ordered ONE (12:03)
[2017-01-07] MEDS ORDERED: LIDOCAINE 1% MDV 20ML VIAL As Ordered ONE (12:06)
[2017-01-07] MEDS ORDERED: MIDAZOLAM INJ 2 MG/2 ML VIAL (J2250) IV ONE (12:30)
[2017-01-07] MEDS ORDERED: LIDOCAINE 1% MDV 20ML VIAL XX ONE (12:30)
--- NOTE | 2017-01-07 12:52 | RO ---
DATE OF PROCEDURE: 01/07/2017 PREOPERATIVE DIAGNOSIS: Mucus plugging. POSTOPERATIVE DIAGNOSIS: Mucus plugging. PROCEDURE: Therapeutic bronchoscopy with aspiration of secretions. SURGEON: Hector Casey MD APPLIED EXERCISE PHYSIOLOGIST: Procedure was performed emergently. ANESTHESIA: 4 mg of intravenous Versed given sequentially and titrated for effect. Local anesthesia was 1% xylocaine via the bronchoscope and Cetacaine spray for lubrication. The patient was ventilated with am Ambu bag valve device throughout the procedure. DESCRIPTION OF PROCEDURE: The patient was identified and the above anesthesia given. The fiberoptic bronchoscope was easily passed via the existing endotracheal tube. It was found to be in good position 3 cm above the raf. The raf was sharp. Both mainstem bronchi widely patent. Scope was first passed into the right mainstem. It was widely patent. Right upper lobe and bronchus intermedius clearly widely patent. In the right upper lobe there was some mild edema. There was one distal plug seen in the anterior segment. This was easily suctioned and lavaged clear. The remainder of the right lung, middle lobe and basilar segments were identified. Widely patent without other endobronchial mucosal abnormalities. The left lung was then entered. All segments, sub segments, upper and lower lobes easily identified, widely patent and no obvious secretions. Otherwise, airways were quite reasonable in appearance. The scope was then withdrawn and the procedure terminated. Oxygen saturation remained greater than 93% throughout the exam. No immediate complications noted. MTDD
--- NOTE | 2017-01-07 14:04 | IPNPDOC ---
Date Seen The patient was seen on 01/07/17. Progress Note SUBJECTIVE: Ms. Castañeda is a 41-year-old female evaluated at bedside in the ICU this morning. She is intubated, however she is alert and awake and able to respond to my line of questioning. Patient had presented to [facility]'s emergency Department with abdominal pain, but later left AGAINST MEDICAL ADVICE stating that she had some court appearance that she had to attend. She later returned to the emergency department was continued abdominal pain and was subsequently admitted for medical management. General surgery was consulted. CT of the abdomen and pelvis revealed a small bowel obstruction. Patient was initially conservatively managed, however her pain persisted, she became tachycardic, and she had worsening lactic acidosis so general surgery conducted an exploratory laparotomy with abdominal washout, extensive lysis of adhesions, small bowel resection with primary anastomosis, release of internal hernia, and placement of a right internal jugular central line using ultrasound guidance. Critical care was called to the postanesthesia care unit because patient was in respiratory acidosis with respiratory failure with hypoxemia and hypercarbia. Patient's blood pressure remained low as well. As stated before patient is currently intubated, receiving intravenous fluid resuscitation with lactated Ringer's at 200 mLs per hour and levophed 8 mg. OBJECTIVE PHYSICAL EXAMINATION: VITAL SIGNS: Please see below. GENERAL: Morbidly obese female laying supine in the hospital bed, intubated, awake and alert, does not appear to be in any amount distress HEENT: Atraumatic, normocephalic, PERRL, EOMI, unable to assess oral cavity at this time secondary to intubation tube, nasogastric tube in place in left nares CARDIOVASCULAR: Regular rate and rhythm, normal S1 and S2, no murmur, rub, click , internal jugular catheter noted on the right RESPIRATORY: Inspiratory wheeze noted the left upper lobe lung, ventilated with an FiO2 of 70% ABDOMINAL: Large, bowel sounds are hypoactive, PERLA drain present with blood- tinged fluid in receptacle, midline abdomen is taped and bandaged from approximately mid thoracic region to pubis, bandaging appears clean, dry, intact EXTREMITIES: Continuity Writer strength 5/5 in upper extremities bilaterally, radial pulses equal and symmetrical, +2/4, lower extremity pulses appreciated, no appreciable edema noted, sequentials in place NEUROLOGICAL: Unable to assess at this time secondary to intubation PSYCHOLOGICAL: Alert and awake, intubated LABORATORY DATA: Please see below. MICROBIOLOGY: Please see below. IMAGING: Portable chest x-ray IMPRESSION: 1. Endotracheal tube and nasogastric tube in seemingly satisfactory position although evaluation is limited by overlying EKG leads. 2. Partial collapse of the right upper lobe and left lower lobe infiltrates. DVT prophylaxis ordered?: Sequential compression ASSESSMENT AND PLAN: This is a 41-year-old morbidly obese female who presented with abdominal pain and found to have small bowel obstruction on imaging and strangulated small bowel, internal hemorrhoids, intra-abdominal adhesions, and perforated small intestine on exploratory laparotomy. PROBLEMS: 1. Septic shock: Likely multifactorial. Patient has white count of 27.5, a heart rate of 99, blood pressure 91/51, chest x-ray that shows a right upper lobe consolidation, and is status post exploratory laparotomy with abdominal washout, extensive lysis of adhesions, small bowel resection with primary anastomosis, and release of internal hernia. Patient is currently receiving intravenous fluid resuscitation with lactated Ringer's at 200 mLs per hour and is on Levophed 8 mg. Her lactic acidosis improving and is currently 2.5. Patient is currently ventilated and management is deferred to critical care. Patient remains on ertapenem. Awaiting blood cultures and gastrointestinal pathology. 2. Acute renal failure: Patient's BUN and creatinine are 17 and 1.40, respectively. Could be results of lack on volume, dehydration, septic shock. Continue to monitor with daily BMP. 3. Diabetes mellitus: Patient's blood glucose was 362. Patient remains on sliding scale insulin every 6 hours secondary to nothing by mouth status. Continue to monitor with daily BMP. DISPOSITION: Patient remains critically ill in the ICU. General surgery is primary on this case with critical care consulted for ventilator management. VS, I&O, 24H, Fishbone Vital Signs/I&O Vital Signs Date Time Temp Pulse Resp B/P Pulse Ox O2 Delivery O2 Flow Rate FiO2 01/07/17 12:35 97.5 99 16 91/51 94 Ventilator 01/07/17 12:00 90 I&O- Last 24 Hours up to 6 AM 01/07/17 06:00 Intake Total 7050 ml Output Total 1585 ml Balance 5465 ml Laboratory Data 24H LABS Laboratory Tests 2 01/06/17 15:17: Lactic Acid Level 6.1*H 01/06/17 17:32: Bedside Glucose (Misc Panel) 460H 01/06/17 21:35: Arterial Blood pH 7.255L, Arterial Blood Partial Pressure CO2 51.0H, Arterial Blood Partial Pressure O2 122.0H, Arterial Blood Total CO2 23.7, Arterial Blood HCO3 22.1, Arterial Blood Base Excess -5.3L, Arterial Blood Oxygen Saturation 98.2, Arterial Blood Gas Puncture Site ART LINE, Blood Gas Bicarbonate Standard 20.1L, Oxygen Delivery Device MECHAN. VENT 01/06/17 22:50: Lactic Acid Level 4.2*H, Anion Gap 10, Blood Urea Nitrogen 15#, Creatinine 1.19H , Sodium Level 143, Potassium Level 3.9, Chloride Level 107, Carbon Dioxide Level 26, Calcium Level 8.7, Glomerular Filtration Rate 52.7L 01/07/17 01:43: Arterial Blood pH 7.347L, Arterial Blood Partial Pressure CO2 37.3, Arterial Blood Partial Pressure O2 82.3, Arterial Blood Total CO2 21.1L, Arterial Blood HCO3 20.0L, Arterial Blood Base Excess -5.1L, Arterial Blood Oxygen Saturation 96.1, Blood Gas Bicarbonate Standard 20.3L 01/07/17 01:58: Bedside Glucose (Misc Panel) 332H 01/07/17 03:54: Blood Urea Nitrogen 17, Creatinine 1.40H, Sodium Level 140, Potassium Level 4.4 , Chloride Level 105, Carbon Dioxide Level 26, Calcium Level 8.2L, Aspartate Amino Transf (AST/SGOT) 40H, Alanine Aminotransferase (ALT/SGPT) 48, Alkaline Phosphatase 98, Total Bilirubin 4.4#H, Total Protein 5.4#L, Albumin 2.2#L, Albumin/Globulin Ratio 0.69L, Anion Gap 9, Glomerular Filtration Rate 43.7L, Lactic Acid Followup at 4 Hours 2.5*H, Magnesium Level 1.4L 01/07/17 05:12: Arterial Blood pH 7.367, Arterial Blood Partial Pressure CO2 42.8, Arterial Blood Partial Pressure O2 84.8, Arterial Blood Total CO2 25.3, Arterial Blood HCO3 24.0, Arterial Blood Base Excess -1.4, Arterial Blood Oxygen Saturation 96.6, Blood Gas Bicarbonate Standard 23.3, Arterial Blood Gas Puncture Site LT RADIAL 01/07/17 05:56: Bedside Glucose (Misc Panel) 367H 01/07/17 11:39: Bedside Glucose (Misc Panel) 322H CBC/BMP Laboratory Tests 01/06/17 22:50 Calcium Level 8.7, Red Blood Count 5.05, Mean Corpuscular Volume 82.9, Mean Corpuscular Hemoglobin 25.0 L, Mean Corpuscular Hemoglobin Concent 30.1 L, Red Cell Distribution Width 15.6 H 01/07/17 03:54 Calcium Level 8.2 L, Red Blood Count 5.25, Mean Corpuscular Volume 82.7, Mean Corpuscular Hemoglobin 24.3 L, Mean Corpuscular Hemoglobin Concent 29.4 L, Red Cell Distribution Width 15.8 H, Aspartate Amino Transf (AST/SGOT) 40 H, Alanine Aminotransferase (ALT/SGPT) 48, Alkaline Phosphatase 98, Total Bilirubin 4.4 #H , Total Protein 5.4 #L, Albumin 2.2 #L Microbiology Microbiology 01/06/17 Blood Culture, Received Pending 01/06/17 Blood Culture - Preliminary, Resulted No growth after 24 hours . All specim... ELE CHARLES-Mary Jan 07, 2017 14:04
[2017-01-07] MEDS: ERTAPENEM SODIUM 1 GM in NS MINI-BAG PLUS 50 ML IV SCH (19:41)
[2017-01-08] VITALS (16 sets, daily range): BP systolic 87–137; BP diastolic 50–65; O2SAT 98
[2017-01-08] MEDS: MIDAZOLAM INJ 2 MG/2 ML VIAL (J2250) IV PRN ×2 (00:16→02:17)
[2017-01-08] MEDS: HumaLOG INSULIN (NovoLOG) PER UNIT SC SCH ×4 (00:16→17:32)
[2017-01-08] MEDS: fentaNYL CITRATE 20 ML in NS 80 ML IV SCH (02:03)
[2017-01-08] MEDS: PANTOPRAZOLE 40MG INJ (PROTONIX) (C9113) IV SCH ×2 (02:17→13:31)
[2017-01-08] MEDS: IPRATROPIUM 0.5MG/ALBUTEROL 2.5MG INH SOL UD 3ML (DUONEB)(J7620) NEB SCH ×6 (04:16→23:25)
[2017-01-08] MEDS: HEPARIN SOD (PORCINE) 5000 UNITS/ML VIAL SC SCH ×3 (05:27→21:08)
[2017-01-08] MEDS: LR 1,000 ML IV SCH ×3 (05:27→21:14)
[2017-01-08 05:45] LABS: MEAN CORPUSCULAR HEMOGLOBIN 24.5 pg (27.0-33.0); MEAN CORPUSCULAR HGB CONC 29.1 g/dl (32.0-36.5); RED CELL DISTRIBUTION WIDTH 15.8 % (11.5-14.5); WHITE BLOOD COUNT 18.4 K/mm3 (4.0-10.0)
[2017-01-08 06:04] LABS: ALBUMIN/GLOBULIN RATIO 0.57 (1.00-1.93); CALCIUM LEVEL 8.2 MG/DL (8.5-10.1); CREATININE FOR GFR 1.22 MG/DL (0.55-1.02); GLOMERULAR FILTRATION RATE 51.2 (>58); POTASSIUM SERUM 4.3 MEQ/L (3.5-5.1); TOTAL PROTEIN 4.7 GM/DL (6.4-8.2)
[2017-01-08 06:30] LABS: BILIRUBIN,TOTAL 1.3 MG/DL (0.2-1.0)
[2017-01-08 06:31] LABS: ALBUMIN 1.7 GM/DL (3.2-5.2)
[2017-01-08 06:42] LABS: ABG BASE EXCESS 0.4 (-2.0-2.0); ABG HCO3 25.8 MEQ/L (22.0-26.0); ABG PARTIAL PRESSURE CO2 45.1 mmHg (35.0-45.0); ABG PARTIAL PRESSURE O2 76.5 mmHg (75.0-100.0); ABG STANDARD HCO3 24.8 MEQ/L (22.0-26.0); ABG TOTAL CO2 27.2 MEQ/L (22.0-29.0); ABG pH (ARTERIAL) 7.376 UNITS (7.350-7.450)
--- NOTE | 2017-01-08 08:02 | REP ---
Clinical: Intubation. Comparison: 01/07/2017. Findings: Endotracheal tube approximately 2 cm above the raf. Right IJ line with tip in the SVC. Improved aeration to the right upper lobe is appreciated with residual basilar segment atelectasis. Left lower lobe infiltrate appears increased from prior examination. No pneumothorax. No obvious effusion. Mediastinum and cardiac silhouette stable. Skeletal structures intact. Impression: 1. Improved aeration to the right upper lobe with residual right upper lobe basilar segment atelectasis. 2. Findings to suggest increased left lower lobe infiltrate. Signed by Ryley Roach MD 01/08/2017 07:53 A
[2017-01-08 09:16] LABS: ABG BASE EXCESS 3.3 (-2.0-2.0); ABG PARTIAL PRESSURE CO2 49.5 mmHg (35.0-45.0); ABG PARTIAL PRESSURE O2 71.3 mmHg (75.0-100.0); ABG STANDARD HCO3 27.4 MEQ/L (22.0-26.0); ABG TOTAL CO2 30.5 MEQ/L (22.0-29.0); ABG pH (ARTERIAL) 7.386 UNITS (7.350-7.450)
--- NOTE | 2017-01-08 09:54 | CCN ---
DATE: 01/08/2017 START TIME: 0820 hours STOP TIME: 0902 hours I again attended [facility]. The patient has been examined, the chart reviewed. I have reviewed her radiographic studies from this morning as well. Overnight, maximum temperature (T max) 98.3. We have been able to wean her off the Levophed. Blood pressures vary from the upper 80s to the mid 100s systolic. Heart rate 95 to 111 with a sinus mechanism. Respiratory rate 18 to 22. She does over breathe the ventilator. The most recent arterial blood gas obtained on a PRVC of 18, tidal volume 450, PEEP of 8 and FiO2 of 50%, has a pH of 7.376, pCO2 of 45.1 and a pO2 of 76.5. Chest x-ray shows improved atelectasis of the right upper lobe with only a thin band of atelectasis remaining. Increased markings in the left mid lung zone, fluid versus early infiltrate. The remainder of her laboratories show a white blood cell count of 18.4 down from 27, hemoglobin 10.1, platelet count 268,000. No differential available this morning. Sodium 141, potassium 4.3, chloride of 106, CO2 27, BUN 27, creatinine down to 1.22, glucose 268. Bilirubin down to 1.3. Albumin depressed at 1.7. The remainder of her vital signs show intake and output for the last 24 hours ending at midnight of 10 liters in with 1275 mL out, since midnight 1200 mL in with 380 mL out. The most recent CVP is 8. On exam, she is awake, alert, appropriate and interacts quite appropriately. She writes questions on the clipboard. Pupils reactive. Sclerae clear. Trachea is in the midline. There may be mild proptosis noted. Oral endotracheal tube, right nasogastric tube and right internal jugular (IJ) CVP remain in place. Membranes are moist. Trachea is in the midline. Chest is clear anteriorly. There are some basilar dependent crackles. No convincing egophony or rubs. Cardiac exam is distant but regular. Peripheral pulses are diminished but palpable. There is some trace edema at best. Abdomen is quiet. Dressings and drains intact. Neurologically, she is awake, alert and appropriate. Psychiatric: Normal mood and affect. Medication list is reviewed. She remains on ertapenem. Ulcer and deep vein thrombosis (DVT) prophylaxis are in place. She has only been getting as needed sedation in the form of Versed. Pain control is reasonable on a fentanyl drip. She states that her pain at this point is minimal to at times moderate with motion. The most pressing problems requiring my attention at the bedside: Hypoxic respiratory failure. Small bowel perforation with peritonitis. Diabetes mellitus, insulin requiring. Renal failure, improving. Hyperbilirubinemia, improving. Longstanding tobacco abuse. Atelectasis. Mildly abnormal x-ray. At this point, my hope is that we can achieve extubation today. She is currently in the midst of a spontaneous breathing trial and on a pressure support of 10 and PEEP of 5, her spontaneous tidal volumes are over 500. Respiratory rate 16 to 20. She states comfort on the ventilator at the moment. We will try decreasing her fentanyl drip mildly as at this point, I do not believe it is at all impairing her respiratory state and her pain control is reasonable. We will recheck an arterial blood gas. If that is acceptable, and she remains comfortable with good tidal volumes, then I will likely extubate her right to noninvasive support as I am concerned that she may have underlying obstructive sleep apnea syndrome. We will continue her current antimicrobials. Ulcer and deep vein thrombosis (DVT ) prophylaxis are in place. She is being followed primarily by the surgical service, and they are managing her fluids. We will proceed as outlined above. Overall, she does remain critically ill as we are actually less than 48 hours out from her initial procedure. We will proceed as outlined above. I left the bedside at 0902 hours. 42 minutes of critical care time delivered at the bedside, not including procedures. HAYDEN
[2017-01-08 10:34] LABS: ABG BASE EXCESS -0.5 (-2.0-2.0); ABG HCO3 22.9 MEQ/L (22.0-26.0); ABG PARTIAL PRESSURE CO2 33.1 mmHg (35.0-45.0); ABG PARTIAL PRESSURE O2 108.1 mmHg (75.0-100.0); ABG STANDARD HCO3 24.1 MEQ/L (22.0-26.0); ABG TOTAL CO2 23.9 MEQ/L (22.0-29.0); ABG pH (ARTERIAL) 7.457 UNITS (7.350-7.450)
[2017-01-08] MEDS ORDERED: ACETAMINOPHEN TAB 650MG DOSE (2X325MG) PO PRN (13:15)
[2017-01-08] MEDS: ACETAMINOPHEN 325 MG/10.15 ML UDC GT PRN ×2 (13:31→21:08)
[2017-01-08] MEDS: ERTAPENEM SODIUM 1 GM in NS MINI-BAG PLUS 50 ML IV SCH (19:01)
[2017-01-09] VITALS (13 sets, daily range): BP systolic 109–147; BP diastolic 55–63; O2SAT 94–98
[2017-01-09] MEDS: HumaLOG INSULIN (NovoLOG) PER UNIT SC SCH ×5 (00:45→23:11)
[2017-01-09] MEDS: ACETAMINOPHEN 325 MG/10.15 ML UDC GT PRN ×4 (00:56→20:22)
[2017-01-09] MEDS: PANTOPRAZOLE 40MG INJ (PROTONIX) (C9113) IV SCH ×2 (01:35→13:24)
[2017-01-09] MEDS: IPRATROPIUM 0.5MG/ALBUTEROL 2.5MG INH SOL UD 3ML (DUONEB)(J7620) NEB SCH ×6 (03:25→23:33)
[2017-01-09] MEDS: HEPARIN SOD (PORCINE) 5000 UNITS/ML VIAL SC SCH ×3 (05:03→21:08)
[2017-01-09 05:20] LABS: MEAN CORPUSCULAR HEMOGLOBIN 25.1 pg (27.0-33.0); MEAN CORPUSCULAR HGB CONC 30.2 g/dl (32.0-36.5); MEAN CORPUSCULAR VOLUME 83.1 fl (80.0-96.0); RED CELL DISTRIBUTION WIDTH 15.7 % (11.5-14.5); WHITE BLOOD COUNT 16.1 K/mm3 (4.0-10.0)
[2017-01-09 05:46] LABS: ALBUMIN 1.5 GM/DL (3.2-5.2); ALBUMIN/GLOBULIN RATIO 0.48 (1.00-1.93); ALKALINE PHOSPHATASE 109 U/L (45-117); ALT/SGPT 19 U/L (12-78); ANION GAP 6 MEQ/L (8-16); AST/SGOT 18 U/L (15-37); BILIRUBIN,TOTAL 0.9 MG/DL (0.2-1.0); BLOOD UREA NITROGEN 15 MG/DL (7-18); CALCIUM LEVEL 8.3 MG/DL (8.5-10.1); CARBON DIOXIDE LEVEL 32 MEQ/L (21-32); CHLORIDE LEVEL 104 MEQ/L (98-107); CREATININE FOR GFR 0.65 MG/DL (0.55-1.02); GLOMERULAR FILTRATION RATE > 60.0 (>58); GLUCOSE, FASTING 173 MG/DL (70-105); POTASSIUM SERUM 3.8 MEQ/L (3.5-5.1); SODIUM LEVEL 142 MEQ/L (136-145); TOTAL PROTEIN 4.6 GM/DL (6.4-8.2)
[2017-01-09 06:07] LABS: ABG BASE EXCESS 4.4 (-2.0-2.0); ABG HCO3 29.1 MEQ/L (22.0-26.0); ABG PARTIAL PRESSURE CO2 44.2 mmHg (35.0-45.0); ABG PARTIAL PRESSURE O2 76.2 mmHg (75.0-100.0); ABG STANDARD HCO3 28.4 MEQ/L (22.0-26.0); ABG TOTAL CO2 30.4 MEQ/L (22.0-29.0); ABG pH (ARTERIAL) 7.436 UNITS (7.350-7.450)
[2017-01-09] MEDS: LR 1,000 ML IV SCH (06:47)
--- NOTE | 2017-01-09 08:33 | REP ---
Clinical: Intubation. Comparison: 01/08/2017. Findings: Prior endotracheal tube appears to have been removed. Right IJ line with tip in the SVC. Stable cardiomegaly. Right perihilar and left mid to lower lobe infiltrates appear improved compared to prior examination. No new acute process identified. No pneumothorax. Skeletal structures intact. Impression: Improved aeration with decreased infiltrate suggested. Endotracheal tube has been removed since prior examination. Signed by Ryley Roach MD 01/09/2017 08:25 A
--- NOTE | 2017-01-09 09:40 | CCN ---
DATE: 01/09/2017 I again attended [facility]. She is awake, alert and appropriate. When sleeping has the noninvasive mask in place. T-max overnight 98.2. Blood pressure 116 to 140s systolic. She has been off vasopressors for greater than 24 hours. Heart rate in the 80s to low 90s with a sinus mechanism. Respiratory rate 18 to the low 20s. No accessory muscle use. When off noninvasive, she is on 4 to 5 liters nasal cannula oxygen flow. Through the noninvasive, we have been able to wean her FiO2 to 35%. Ins and outs ending at midnight last night were 3824 mL in for the previous 24 hours and 1800 mL out. Most recent laboratories show a white blood cell count of 16.1, hemoglobin 9.1, and platelet count 276,000. No differential available. Sodium 142, potassium 3.8, chloride 104, CO2 32, BUN 15, creatinine down to 0.65, glucose 173. Bilirubin normal at 0.9. Albumin depressed at 1.5. Arterial blood gas done on a noninvasive support with inspiratory 12, expiratory of 8, rate of 4, FiO2 of 35%, has pH of 7.436, pCO2 of 44.2 and a pO2 of 76.2. Saturation 95.9%. Chest x-ray this morning shows improved aeration at the left base. No other acute findings. On exam, she is awake, alert, and appropriate. Moves all extremities. Pupils do react. Sclerae are clear. I do believe there is a proptosis. Membranes are moist and trachea is in the midline. Chest is quite clear anteriorly. There are some opening crackles dependently at the bases that improve after several deep inspirations. No other focal adventitious breath sounds are identified. Cardiac exam is distant, but regular. No obvious murmur or gallop. Peripheral pulses are palpable. No significant edema. Abdomen obese. Dressings and drains intact. There may be some faint bowel sounds. Extremities without cyanosis or clubbing. Neurologically, she is awake, alert and appropriate. Psychiatric with normal mood and affect. IMPRESSION: 1. Hypoxemia, likely multifactorial. 2. Peritonitis secondary to small bowel perforation, now status post laparotomy with small bowel resection. 3. Insulin dependent diabetes mellitus. 4. Long standing tobacco abuse prior to hospital admission. 5. Suspect underlying obstructive sleep apnea syndrome. At this point, will continue with the BiPAP for naps and at nighttime. Clearly after conversation with her and seeing episodes when she sleeps here, she needs a formal sleep evaluation after discharge. We again discussed the need to remain tobacco free and she assures me she will. We will continue with bronchodilators while she is here, at least until she is more mobile. I do believe there are plans to get her out of bed today. She still has a NG tube in place. Fluids, nutrition and decision regarding NG tube will be per general surgery. Glucoses have been a little on the high side, but will see how she does once she begins to eat. Ulcer and deep vein thrombosis (DVT) prophylaxis are in place. We will continue as outlined above. I believe her antimicrobials are appropriate and ertapenem is being continued per general surgery. Further recommendations will be made as new information becomes available.
[2017-01-09] MEDS: ERTAPENEM SODIUM 1 GM in NS MINI-BAG PLUS 50 ML IV SCH (20:22)
[2017-01-10] VITALS: BP 136/61
[2017-01-10] MEDS: PANTOPRAZOLE 40MG INJ (PROTONIX) (C9113) IV SCH ×2 (01:10→14:43)
[2017-01-10] MEDS: ACETAMINOPHEN 325 MG/10.15 ML UDC GT PRN ×3 (01:12→14:47)
[2017-01-10] MEDS: IPRATROPIUM 0.5MG/ALBUTEROL 2.5MG INH SOL UD 3ML (DUONEB)(J7620) NEB SCH ×6 (03:34→23:26)
[2017-01-10 04:01] VITALS: BP 113/52
[2017-01-10] MEDS: HumaLOG INSULIN (NovoLOG) PER UNIT SC SCH ×4 (05:55→23:43)
[2017-01-10] MEDS: HEPARIN SOD (PORCINE) 5000 UNITS/ML VIAL SC SCH ×3 (05:56→21:11)
[2017-01-10 06:14] LABS: MEAN CORPUSCULAR HEMOGLOBIN 24.5 pg (27.0-33.0); MEAN CORPUSCULAR HGB CONC 30.4 g/dl (32.0-36.5); MEAN CORPUSCULAR VOLUME 80.5 fl (80.0-96.0); RED CELL DISTRIBUTION WIDTH 15.3 % (11.5-14.5); WHITE BLOOD COUNT 12.4 K/mm3 (4.0-10.0)
[2017-01-10 06:35] LABS: ALBUMIN 1.6 GM/DL (3.2-5.2); ALBUMIN/GLOBULIN RATIO 0.47 (1.00-1.93); ALKALINE PHOSPHATASE 138 U/L (45-117); ALT/SGPT 26 U/L (12-78); ANION GAP 8 MEQ/L (8-16); AST/SGOT 39 U/L (15-37); BILIRUBIN,TOTAL 1.3 MG/DL (0.2-1.0); BLOOD UREA NITROGEN 7 MG/DL (7-18); CARBON DIOXIDE LEVEL 32 MEQ/L (21-32); CHLORIDE LEVEL 101 MEQ/L (98-107); GLOMERULAR FILTRATION RATE > 60.0 (>58); GLUCOSE, FASTING 176 MG/DL (70-105); POTASSIUM SERUM 3.5 MEQ/L (3.5-5.1); SODIUM LEVEL 141 MEQ/L (136-145)
[2017-01-10 08:00] VITALS: BP 134/67
--- NOTE | 2017-01-10 08:48 | REP ---
Clinical: Intubated. Comparison: 01/09/2017. Findings: Nasogastric tube courses below left hemidiaphragm. Right IJ line with tip in the SVC/right atrium. Stable cardiomegaly. Pulmonary vascular congestion/interstitial edema as well as left lower lobe infiltrate cannot be excluded. Impression: 1. Lines and tubes as above. No endotracheal tube appreciated. 2. Cannot exclude pulmonary vascular congestion/interstitial edema as well as left lower lobe infiltrate. Signed by Ryley Roach MD 01/10/2017 08:40 A
[2017-01-10 12:00] VITALS: BP 111/78
[2017-01-10] MEDS ORDERED: SODIUM CHLORIDE 0.9% INJ 10 ML SYR IV PRN (12:00)
[2017-01-10] MEDS: FUROSEMIDE 40 MG TAB PO SCH (12:16)
[2017-01-10] MEDS: SODIUM CHLORIDE 0.9% INJ 10 ML SYR IV SCH ×2 (14:44→21:12)
[2017-01-10 16:00] VITALS: BP 124/67
[2017-01-10 20:00] VITALS: BP 134/68
[2017-01-10] MEDS: ERTAPENEM SODIUM 1 GM in NS MINI-BAG PLUS 50 ML IV SCH (20:21)
[2017-01-11] VITALS: BP 120/62
[2017-01-11] MEDS: PANTOPRAZOLE 40MG INJ (PROTONIX) (C9113) IV SCH (01:33)
[2017-01-11] MEDS: IPRATROPIUM 0.5MG/ALBUTEROL 2.5MG INH SOL UD 3ML (DUONEB)(J7620) NEB SCH ×5 (03:20→20:43)
[2017-01-11 04:00] VITALS: BP 120/63
[2017-01-11] MEDS: HumaLOG INSULIN (NovoLOG) PER UNIT SC SCH ×4 (06:00→21:00)
[2017-01-11] MEDS: SODIUM CHLORIDE 0.9% INJ 10 ML SYR IV SCH ×3 (06:05→21:44)
[2017-01-11] MEDS: HEPARIN SOD (PORCINE) 5000 UNITS/ML VIAL SC SCH ×3 (06:05→21:44)
[2017-01-11 06:35] LABS: MEAN CORPUSCULAR HGB CONC 31.1 g/dl (32.0-36.5); MEAN CORPUSCULAR VOLUME 80.4 fl (80.0-96.0); RED CELL DISTRIBUTION WIDTH 15.3 % (11.5-14.5); WHITE BLOOD COUNT 12.6 K/mm3 (4.0-10.0)
[2017-01-11 07:18] LABS: ALBUMIN 1.7 GM/DL (3.2-5.2); ALBUMIN/GLOBULIN RATIO 0.49 (1.00-1.93); ALKALINE PHOSPHATASE 163 U/L (45-117); ALT/SGPT 29 U/L (12-78); ANION GAP 7 MEQ/L (8-16); AST/SGOT 39 U/L (15-37); BILIRUBIN,TOTAL 0.8 MG/DL (0.2-1.0); BLOOD UREA NITROGEN 5 MG/DL (7-18); CALCIUM LEVEL 8.1 MG/DL (8.5-10.1); CARBON DIOXIDE LEVEL 35 MEQ/L (21-32); CHLORIDE LEVEL 98 MEQ/L (98-107); CREATININE FOR GFR 0.53 MG/DL (0.55-1.02); GLOMERULAR FILTRATION RATE > 60.0 (>58); GLUCOSE, FASTING 172 MG/DL (70-105); POTASSIUM SERUM 3.6 MEQ/L (3.5-5.1); SODIUM LEVEL 140 MEQ/L (136-145); TOTAL PROTEIN 5.2 GM/DL (6.4-8.2)
[2017-01-11 08:00] VITALS: BP 103/59
[2017-01-11] MEDS: FUROSEMIDE 40 MG TAB PO SCH (08:27)
--- NOTE | 2017-01-11 08:42 | REP ---
Clinical: Intubation. Comparison: 01/10/2017. Findings: Right IJ line with tip in the SVC stable. No nasogastric tube or endotracheal tube is identified. Linear atelectasis in the right lower lung zone and suspected left lower lobe infiltrate are identified on current examination. No definite effusion. No pneumothorax. Visualized mediastinum and cardiac silhouette stable. Impression: 1. No nasogastric tube or endotracheal tube identified. 2. New plate-like atelectasis in the right lower lung zone and possible left lower lobe infiltrate. Signed by Ryley Roach MD 01/11/2017 08:33 A
[2017-01-11 12:00] VITALS: BP 147/60
[2017-01-11] MEDS: OMEPRAZOLE 20 MG CAP PO SCH (12:28)
[2017-01-11 13:48] VITALS: BP 143/72
--- NOTE | 2017-01-11 15:50 | IPN ---
DATE: 01/11/2017 Ms. Castañeda is feeling well today. She has no complaints of pain, chest pain or shortness of breath. Was interested in followup plans for when she leaves the hospital. Is having visitors. Temperature 98.1, pulse 91, respiratory rate 20, blood pressure 147/60, 94% on room air. Intake and output (I and O) notable for negative fluid balance of -3150. Weight 71.8 kg with a body mass index of 67. She is awake, appropriately interactive, sitting upright. Breathing symmetrically diminished. Heart in a regular rate and rhythm. No significant arhythmia on monitor. Abdomen soft. White cell count 12.6, hemoglobin 9.9, platelets of 388. BUN is 5, creatine 0.53. Hemoglobin A1c is 9.8. ASSESSMENT: This is a 41-year-old with known diabetes and hypertension, and gastroesophageal reflux disease (GERD) who has not been recieving outpatient treatment presented with abdominal pain, had a surgical course and now is being transferred out of the intensive care unit with plans for discharge in the future. I have been asked to re-see the patient upon her leaving the ICU. PLAN: 1. The patient has diabetes. Previously has been on insulin. Will need to restart her on Lantus and short acting insulin at the time of discharge which could be as early as tomorrow. She would benefit from angiotensin-converting enzyme (FRANKLIN) inhibitor but blood pressure is somewhat soft in the postoperative setting. This could be reconsidered as an outpatient or prior to discharge depending on clinical course. 2. The patient has GERD. His proton pump inhibitor (PPI) is deemed appropriate by the surgical team. 3. The patient has no primary care provider. Will attempt to set her up with a primary care provider prior to discharge.
[2017-01-11] MEDS: ERTAPENEM SODIUM 1 GM in NS MINI-BAG PLUS 50 ML IV SCH (20:36)
[2017-01-11 22:00] VITALS: BP 120/56
[2017-01-12] MEDS: IPRATROPIUM 0.5MG/ALBUTEROL 2.5MG INH SOL UD 3ML (DUONEB)(J7620) NEB SCH ×7 (03:40→23:24)
[2017-01-12] MEDS: HEPARIN SOD (PORCINE) 5000 UNITS/ML VIAL SC SCH ×3 (05:06→21:09)
[2017-01-12] MEDS: SODIUM CHLORIDE 0.9% INJ 10 ML SYR IV SCH (05:06)
[2017-01-12 05:32] LABS: MEAN CORPUSCULAR HEMOGLOBIN 25.1 pg (27.0-33.0); MEAN CORPUSCULAR HGB CONC 31.2 g/dl (32.0-36.5); MEAN CORPUSCULAR VOLUME 80.5 fl (80.0-96.0); RED CELL DISTRIBUTION WIDTH 15.6 % (11.5-14.5); WHITE BLOOD COUNT 13.6 K/mm3 (4.0-10.0)
[2017-01-12 05:51] LABS: ALBUMIN 1.7 GM/DL (3.2-5.2); ALBUMIN/GLOBULIN RATIO 0.47 (1.00-1.93); ALKALINE PHOSPHATASE 156 U/L (45-117); ALT/SGPT 21 U/L (12-78); ANION GAP 7 MEQ/L (8-16); AST/SGOT 18 U/L (15-37); BILIRUBIN,TOTAL 0.4 MG/DL (0.2-1.0); BLOOD UREA NITROGEN 4 MG/DL (7-18); CALCIUM LEVEL 7.9 MG/DL (8.5-10.1); CARBON DIOXIDE LEVEL 35 MEQ/L (21-32); CHLORIDE LEVEL 98 MEQ/L (98-107); CREATININE FOR GFR 0.55 MG/DL (0.55-1.02); GLOMERULAR FILTRATION RATE > 60.0 (>58); GLUCOSE, FASTING 189 MG/DL (70-105); POTASSIUM SERUM 3.1 MEQ/L (3.5-5.1); SODIUM LEVEL 140 MEQ/L (136-145); TOTAL PROTEIN 5.3 GM/DL (6.4-8.2)
[2017-01-12 07:41] VITALS: O2SAT 91
[2017-01-12] MEDS: OMEPRAZOLE 20 MG CAP PO SCH (08:01)
[2017-01-12] MEDS: FUROSEMIDE 40 MG TAB PO SCH (08:01)
[2017-01-12] MEDS: HumaLOG INSULIN (NovoLOG) PER UNIT SC SCH ×4 (08:02→21:00)
[2017-01-12] MEDS: POTASSIUM CHLORIDE 10 MEQ SR TABLET PO SCH ×2 (10:35→21:08)
--- NOTE | 2017-01-12 13:49 | IPN ---
DATE OF SERVICE: 01/12/2017 Ms. Castañeda is feeling well today. She is complaining of some back pain from being in bed. Is looking forward to being out of bed today. Has requested some Bengay, which she used at home for previous source of pain. Is tolerating a diet. Apparently, had some drainage from surgical site. No complaints of chest pain. No shortness of breath. Temperature 98.2, pulse 102, respiratory rate 18, blood pressure 120/56, 93% on room air. Intake and output (I and O) notable for a negative fluid balance of -50. She did have six bowel movements yesterday. She is awake, appropriately interactive, pleasantly conversant. Breathing is symmetrical and rested. No accessory muscle use. Speaking in complete sentences. Quite jovial today. Heart is in a regular rate and rhythm. Abdomen soft, doughy, nontender. White cell count 13.6, hemoglobin 9.5, platelets 433. Sodium is 140, potassium 3.1, BUN is 4, creatine 0.55, alkaline phosphatase is 156, albumin 1.7. Blood culture has returned positive for Clostridium paraputrificum. My assessment is as follows: This is a 41-year-old with known diabetes, hypertension, and gastroesophageal reflux disease (GERD) who has not been receiving outpatient treatment, who presented with abdominal pain, and is now in the recovery phase. The plan is as follows: 1. The patient has diabetes. It is reasonably well controlled on insulin. It might be reasonable at this point to start longer-acting Levemir, perhaps once daily. She had previously been on an angiotensin-converting enzyme (FRANKLIN) inhibitor. Blood pressure at this point is in acceptable range. I believe FRANKLIN inhibitor may be needed in the outpatient setting. 2. The patient has gastroesophageal reflux disease. Continue with proton pump inhibitor (PPI). 3. The patient has hypokalemia, which has been repleted by Dr. Sharma. 4. We are in the process of setting her up with a new provider at this point. 5. The patient has had a positive blood cultures for Clostridium. Discussed this in general with the infectious disease doctor, who is not available for a consultation locally at this point. 6. The patient has leukocytosis. The cause of this is not immediately clear. She does have findings on chest x-ray from 01/11/2017 suspicious for plate-like atelectasis and possible infiltrate. Certainly, at this point, she has no respiratory distress. Will consider repeating imaging tomorrow as needed. 7. The patient has back pain. Will apply moist heat and Bengay as per her home regimen. 8.Sepsis, present on admission, in the setting of ventral hernia w/ obstruction , bowel perforation and peritonitis MTDD
[2017-01-12 14:00] VITALS: BP 140/60
[2017-01-12] MEDS: ANALGESIC BALM CRM 120 GM TOP PRN (14:13)
[2017-01-12] MEDS: ERTAPENEM SODIUM 1 GM in NS MINI-BAG PLUS 50 ML IV SCH (20:58)
[2017-01-12] MEDS: LEVEMIR (INSULIN DETEMIR) 1 UNITS/0.01ML SC SCH (21:00)
[2017-01-12 22:00] VITALS: BP 123/58
[2017-01-12] MEDS: ACETAMINOPHEN TAB 650MG DOSE (2X325MG) PO PRN (23:38)
[2017-01-13] MEDS: IPRATROPIUM 0.5MG/ALBUTEROL 2.5MG INH SOL UD 3ML (DUONEB)(J7620) NEB SCH ×6 (03:22→23:14)
[2017-01-13] MEDS: HEPARIN SOD (PORCINE) 5000 UNITS/ML VIAL SC SCH ×3 (05:28→21:20)
[2017-01-13 06:00] VITALS: BP 115/56
[2017-01-13 06:52] LABS: MEAN CORPUSCULAR HEMOGLOBIN 24.5 pg (27.0-33.0); MEAN CORPUSCULAR HGB CONC 30.4 g/dl (32.0-36.5); MEAN CORPUSCULAR VOLUME 80.8 fl (80.0-96.0); RED CELL DISTRIBUTION WIDTH 15.8 % (11.5-14.5); WHITE BLOOD COUNT 12.7 K/mm3 (4.0-10.0)
[2017-01-13 07:07] LABS: ALBUMIN 1.7 GM/DL (3.2-5.2); ALBUMIN/GLOBULIN RATIO 0.38 (1.00-1.93); ALKALINE PHOSPHATASE 137 U/L (45-117); ALT/SGPT 20 U/L (12-78); ANION GAP 9 MEQ/L (8-16); AST/SGOT 18 U/L (15-37); BILIRUBIN,TOTAL 0.4 MG/DL (0.2-1.0); BLOOD UREA NITROGEN 3 MG/DL (7-18); CALCIUM LEVEL 8.4 MG/DL (8.5-10.1); CARBON DIOXIDE LEVEL 33 MEQ/L (21-32); CHLORIDE LEVEL 98 MEQ/L (98-107); CREATININE FOR GFR 0.62 MG/DL (0.55-1.02); GLOMERULAR FILTRATION RATE > 60.0 (>58); GLUCOSE, FASTING 167 MG/DL (70-105); POTASSIUM SERUM 2.9 MEQ/L (3.5-5.1); SODIUM LEVEL 140 MEQ/L (136-145); TOTAL PROTEIN 6.2 GM/DL (6.4-8.2)
[2017-01-13] MEDS: metroNIDAZOLE 500 MG in APPROPRIATE DILUENT 1 EA IV SCH ×3 (08:20→23:20)
[2017-01-13] MEDS: HumaLOG INSULIN (NovoLOG) PER UNIT SC SCH ×4 (08:20→21:00)
[2017-01-13] MEDS: POTASSIUM CHLORIDE 10 MEQ SR TABLET PO SCH ×2 (08:21→21:21)
[2017-01-13] MEDS: KCL 10MEQ IN 100ML SWI (KRUN) 10 MEQ in APPROPRIATE DILUENT 1 EA IV SCH ×4 (08:21→09:57)
[2017-01-13] MEDS: OMEPRAZOLE 20 MG CAP PO SCH (08:21)
[2017-01-13 14:00] VITALS: BP 139/63
[2017-01-13] MEDS ORDERED: INSUDET SC (16:13)
[2017-01-13] MEDS ORDERED: INSUHUMDS SC (16:13)
--- NOTE | 2017-01-13 16:14 | IPN ---
DATE: 01/13/2017 Ms. Castañeda is doing well today. Back pain is improved with use of Darci-Sotelo and a Macario chair. She has tolerated diet. Temperature is 98, pulse 83, respiratory rate 15, blood pressure 115/56, 97% on room air. Input and output notable for positive fluid balance of 1410, three bowel movements yesterday. She is awake, appropriately interactive, pleasantly conversant. Breathing is symmetrical, diminished. I:E ratio is 1:3. No wheezes, rales or rhonchi. HEART: Distant sounding. Normal S1, S2. Radial pulses 2+. ABDOMEN: Soft, distended, hyperactive bowel sounds. EXTREMITIES: No significant lower extremity edema. White count is 12.7, hemoglobin 10, platelets 496, potassium is 2.9, creatinine is 0.62. ASSESSMENT: This is a 41-year-old with known diabetes, hypertension and gastroesophageal reflux disease (GERD), who has not been receiving outpatient therapy and had surgical procedure and is now currently in the recovery phase. PLAN: 1. The patient was started on long-acting insulin. Fingerstick is somewhat more reasonably controlled. We will continue with the current therapy. The patient may benefit from an [id number]-[id number] (FRANKLIN) inhibitor in the outpatient setting. 2. The patient has GERD. Continue proton pump inhibitor. 3. The patient has hypokalemia. We will repeat a basic metabolic panel (BMP) this afternoon and replete with oral, as she is unable to tolerate IV potassium. 4. The patient has had positive blood culture for Clostridium, which would be covered by Flagyl, which will be continued in the outpatient setting with Dr. Sharma. 5. The patient continues to have leukocytosis, which has been stable. 6. Back pain is improving. 7. Sepsis, present on admission, in the setting of ventral hernia w/ obstruction , bowel perforation and peritonitis MTDD
[2017-01-13 17:14] LABS: ANION GAP 6 MEQ/L (8-16); BLOOD UREA NITROGEN 3 MG/DL (7-18); CALCIUM LEVEL 8.4 MG/DL (8.5-10.1); CARBON DIOXIDE LEVEL 33 MEQ/L (21-32); CHLORIDE LEVEL 101 MEQ/L (98-107); CREATININE FOR GFR 0.73 MG/DL (0.55-1.02); GLOMERULAR FILTRATION RATE > 60.0 (>58); GLUCOSE, FASTING 230 MG/DL (70-105); POTASSIUM SERUM 3.5 MEQ/L (3.5-5.1); SODIUM LEVEL 140 MEQ/L (136-145)
[2017-01-13] MEDS: LEVEMIR (INSULIN DETEMIR) 1 UNITS/0.01ML SC SCH (21:21)
[2017-01-13] MEDS: ERTAPENEM SODIUM 1 GM in NS MINI-BAG PLUS 50 ML IV SCH (21:21)
[2017-01-13 22:00] VITALS: BP 111/69
[2017-01-14] MEDS: ACETAMINOPHEN TAB 650MG DOSE (2X325MG) PO PRN ×2 (00:35→18:19)
[2017-01-14] MEDS: IPRATROPIUM 0.5MG/ALBUTEROL 2.5MG INH SOL UD 3ML (DUONEB)(J7620) NEB SCH ×5 (03:41→19:25)
[2017-01-14] MEDS: HEPARIN SOD (PORCINE) 5000 UNITS/ML VIAL SC SCH ×3 (05:36→21:06)
[2017-01-14 06:00] VITALS: BP 112/69
[2017-01-14 08:47] LABS: MEAN CORPUSCULAR HEMOGLOBIN 24.8 pg (27.0-33.0); MEAN CORPUSCULAR HGB CONC 30.7 g/dl (32.0-36.5); MEAN CORPUSCULAR VOLUME 80.8 fl (80.0-96.0)
[2017-01-14 09:06] LABS: ALBUMIN 1.9 GM/DL (3.2-5.2); ALBUMIN/GLOBULIN RATIO 0.46 (1.00-1.93); ALKALINE PHOSPHATASE 170 U/L (45-117); ALT/SGPT 19 U/L (12-78); ANION GAP 12 MEQ/L (8-16); AST/SGOT 23 U/L (15-37); BILIRUBIN,TOTAL 0.7 MG/DL (0.2-1.0); BLOOD UREA NITROGEN 5 MG/DL (7-18); CALCIUM LEVEL 8.1 MG/DL (8.5-10.1); CARBON DIOXIDE LEVEL 28 MEQ/L (21-32); CHLORIDE LEVEL 100 MEQ/L (98-107); GLOMERULAR FILTRATION RATE > 60.0 (>58); GLUCOSE, FASTING 213 MG/DL (70-105); POTASSIUM SERUM 3.6 MEQ/L (3.5-5.1); SODIUM LEVEL 140 MEQ/L (136-145)
[2017-01-14] MEDS: POTASSIUM CHLORIDE 10 MEQ SR TABLET PO SCH ×2 (09:37→21:07)
[2017-01-14] MEDS: OMEPRAZOLE 20 MG CAP PO SCH (09:37)
[2017-01-14] MEDS: metroNIDAZOLE 500 MG in APPROPRIATE DILUENT 1 EA IV SCH ×2 (09:38→16:35)
[2017-01-14] MEDS: HumaLOG INSULIN (NovoLOG) PER UNIT SC SCH ×4 (09:38→21:08)
[2017-01-14] MEDS ORDERED: GASTROGRAFIN SOLUTION 30ML PO ONE (11:30)
[2017-01-14] MEDS ORDERED: GASTROGRAFIN SOLUTION 30ML (Q9963) PO ONE (12:00)
--- NOTE | 2017-01-14 13:40 | REP ---
Clinical: Leukocytosis. Technique: Axial contrast enhanced images from the lung bases to the pubic symphysis using oral and 100 ml Isovue 370 intravenous contrast material with coronal and sagittal re-formations. Comparison: 01/06/2017. Findings: A large ventral hernia is again identified. The patient is status post recent procedure with surgical standby and subcutaneous anna in the anterior midline. Previously noted bowel obstruction has resolved. Current examination demonstrates increased infiltration and stranding throughout the mesentery as well as mucosal irregularity to multiple small bowel loops related to the hernia. No free air. No drainable collection/abscess. Liver, spleen, pancreas, bilateral adrenal glands and kidneys are normal. The patient is status post cholecystectomy. Pelvis demonstrates relatively normal bladder and uterus/adnexa. No ascites. No obvious adenopathy. No mass lesion. Abdominal aorta and branch vessels normal. Skeletal structures intact. Lung bases demonstrate minimal basilar atelectasis. Impression: Recent surgery related to ventral hernia and resolution of prior small bowel obstruction. Current examination demonstrates increased stranding and infiltration with mucosal irregularity to associated small bowel loops. While these findings may reflect normal postsurgical changes, acute infectious process cannot be excluded. No drainable collection/abscess. No free air. Signed by Ryley Roach MD 01/14/2017 01:32 P
[2017-01-14 14:00] VITALS: BP 128/62
[2017-01-14] MEDS: ANALGESIC BALM CRM 120 GM TOP PRN (14:06)
[2017-01-14 14:57] LABS: BASO # 0.1 K/mm3 (0.0-0.2); BASO % 0.4 % (0.0-1.0); EOS # 0.3 K/mm3 (0.0-0.50); EOS % 1.2 % (0.0-3.0); LARGE UNSTAINED CELL # 0.6 K/mm3 (0.0-0.4); LARGE UNSTAINED CELL % 2.6 % (0.0-4.0); LYMPH # 1.7 K/mm3 (1.5-4.5); LYMPH % 7.8 % (24.0-44.0); MEAN CORPUSCULAR HEMOGLOBIN 24.8 pg (27.0-33.0); MEAN CORPUSCULAR HGB CONC 30.1 g/dl (32.0-36.5); MEAN CORPUSCULAR VOLUME 82.6 fl (80.0-96.0); MONO # 1.4 K/mm3 (0.0-0.8); MONO % 6.3 % (0.0-5.0); NEUTROPHILS # 18.1 K/mm3 (1.8-7.7); NEUTROPHILS % 81.6 % (36.0-66.0); PLATELET COUNT, AUTOMATED 475 k/mm3 (150-450); RED CELL DISTRIBUTION WIDTH 15.8 % (11.5-14.5); WHITE BLOOD COUNT 22.2 K/mm3 (4.0-10.0)
--- NOTE | 2017-01-14 15:50 | IPN ---
DATE: 01/14/2017 Ms. Castañeda is feeling well today. She has no complaints of pain. No chest pain or shortness of breath. She is tolerating her diet. Moving her bowels. There is no abdominal pain specifically. Temperature is 98.1, pulse 94, respiratory rate 16, blood pressure 112/69, 97% on room air. Input and output notable for negative fluid balance of -200, two bowel movements yesterday, three thus far today. She is awake, appropriately interactive, pleasantly conversant, somewhat flirtatious. Breathing is symmetrical diminished, rested, no accessory muscle use. HEART: Is regular rate and rhythm, no tachycardic. ABDOMEN: Soft, nontender to palpation. White count unfortunately is 22,000, hemoglobin 10.1 and platelets of 492, potassium is 3.6, creatinine is 0.7. Repeat blood cultures are pending. CT of the abdomen and pelvis shows stranding and infiltration with mucosal irregularity associated with small bowel loops, I have discussed this by phone with Dr. Sharma. ASSESSMENT: This is a 41-year-old with known diabetes, hypertension and gastroesophageal reflux disease (GERD), who has not been receiving outpatient therapy and had surgical procedure related to her hernia and is now currently in recovery phase with relatively notable leukocytosis without significant physical finding. PLAN: 1. Infectious disease. Patient is continued on broad spectrum antibiotics. Will be monitored clinically. Our originally plan has been for discharge today, there is no abscess and findings on CT scan may represent normal recovery phase, but at this point patient bears further monitoring. 2. Diabetes. Patient is on long acting insulin with fingersticks at this point , is moderately well controlled. We will look to increase her long acting slightly. 3. Gastroesophageal reflux disease (GERD). Continue proton pump inhibitor (PPI). 4. The patient has hypokalemia which appears to have resolved. 5. Patient had positive blood culture, we will repeat blood culture at this point given the fact that her white cell count is elevated. 6. Patient's previously described back pain is improving. 7. Sepsis, present on admission, in the setting of ventral hernia w/ obstruction , bowel perforation and peritonitis MTDD
[2017-01-14] MEDS: NYSTATIN 500,000 U/5 ML SUSP UDC SS SCH ×2 (17:54→21:14)
[2017-01-14] MEDS: ERTAPENEM SODIUM 1 GM in NS MINI-BAG PLUS 50 ML IV SCH (21:06)
[2017-01-14] MEDS: LEVEMIR (INSULIN DETEMIR) 1 UNITS/0.01ML SC SCH (21:08)
[2017-01-14 22:00] VITALS: BP 103/60
[2017-01-15] MEDS: IPRATROPIUM 0.5MG/ALBUTEROL 2.5MG INH SOL UD 3ML (DUONEB)(J7620) NEB SCH ×7 (00:05→23:58)
[2017-01-15] MEDS: metroNIDAZOLE 500 MG in APPROPRIATE DILUENT 1 EA IV SCH ×2 (00:40→08:52)
[2017-01-15] MEDS: ACETAMINOPHEN TAB 650MG DOSE (2X325MG) PO PRN ×2 (02:15→23:10)
[2017-01-15] MEDS: HEPARIN SOD (PORCINE) 5000 UNITS/ML VIAL SC SCH ×3 (05:29→22:14)
[2017-01-15 06:00] VITALS: BP 108/54
[2017-01-15 06:47] LABS: ALBUMIN 1.5 GM/DL (3.2-5.2); ALBUMIN/GLOBULIN RATIO 0.34 (1.00-1.93); ALKALINE PHOSPHATASE 131 U/L (45-117); ALT/SGPT 15 U/L (12-78); ANION GAP 9 MEQ/L (8-16); AST/SGOT 12 U/L (15-37); BILIRUBIN,TOTAL 0.4 MG/DL (0.2-1.0); BLOOD UREA NITROGEN 5 MG/DL (7-18); CARBON DIOXIDE LEVEL 31 MEQ/L (21-32); CHLORIDE LEVEL 101 MEQ/L (98-107); CREATININE FOR GFR 0.67 MG/DL (0.55-1.02); GLOMERULAR FILTRATION RATE > 60.0 (>58); GLUCOSE, FASTING 185 MG/DL (70-105); MAGNESIUM LEVEL 1.7 MG/DL (1.8-2.4); SODIUM LEVEL 141 MEQ/L (136-145); TOTAL PROTEIN 5.9 GM/DL (6.4-8.2)
[2017-01-15 06:50] LABS: MEAN CORPUSCULAR HEMOGLOBIN 24.3 pg (27.0-33.0); MEAN CORPUSCULAR HGB CONC 29.9 g/dl (32.0-36.5); MEAN CORPUSCULAR VOLUME 81.3 fl (80.0-96.0); PLATELET COUNT, AUTOMATED 429 k/mm3 (150-450); WHITE BLOOD COUNT 21.4 K/mm3 (4.0-10.0)
[2017-01-15 07:53] LABS: ANISOCYTOSIS 1+; EOSINOPHILS 1 % (0-5); HYPOCHROMASIA 1+
[2017-01-15] MEDS: NYSTATIN 500,000 U/5 ML SUSP UDC SS SCH ×3 (08:50→17:00)
[2017-01-15] MEDS: POTASSIUM CHLORIDE 10 MEQ SR TABLET PO SCH ×2 (08:51→20:45)
[2017-01-15] MEDS: HumaLOG INSULIN (NovoLOG) PER UNIT SC SCH ×4 (08:51→20:44)
[2017-01-15] MEDS: OMEPRAZOLE 20 MG CAP PO SCH (08:52)
[2017-01-15] MEDS: MAG SULF 1GM/100ML (MAG RUN) 1 GM in APPROPRIATE DILUENT 1 EA IV SCH ×2 (10:15→10:17)
--- NOTE | 2017-01-15 11:22 | IPN ---
DATE: 01/15/2017 Patient has no complaints of pain. She does have a little cough and sputum production. No dysuria. No abdominal pain. Has had bowel movements. T-max 101.3, T-current 96.3, pulse 80, respiratory rate 18, blood pressure 108/54, 91% on room air. Intake and output notable for a positive fluid balance of 830. Four bowel movements yesterday, none thus far today. She is awake, appropriately interactive. Says that her back pain is improved and she slept relatively well last night. Appears comfortable in bed. Mucous membranes moist. No evidence of thrush on exam. No adenopathy in her neck. Breathing is symmetrical, somewhat diminished. No upper airway noises. No wheezing. Heart is distant sounding, regular rate and rhythm. Abdomen is soft. Bowel sounds are noted. Nontender. Perhaps some firmness in the left flank. White cell count 21.4, hemoglobin 9, platelets 429, BUN 5, creatinine 0.6, magnesium 1.7, potassium 3.0. Repeat blood cultures are pending. My assessment is as follows: This is a 41-year-old with known diabetes, hypertension and gastroesophageal reflux disease (GERD), who has not been receiving outpatient therapy and had a surgical procedure related to her hernia and is now currently in recovery phase with continued leukocytosis and now fever. Plan is as follows: 1. Infectious disease. The patient is on broad spectrum antibiotics. No obvious source or localization for fever. I have asked for a sputum to be sent. Will attempt to repeat chest x-ray although I do not believe there are findings consistent with pneumonia. 2. The patient has diabetes. Fingersticks are somewhat elevated. We can likely increase her insulin in this setting. 3. Gastroesophageal reflux disease (GERD). Patient is on a proton pump inhibitor (PPI). 4. The patient has hypokalemia and hypomagnesemia. She will be repleted. 5. Back pain is improving. 6. I discussed this case in person with the covering surgeon. 7. Sepsis, present on admission, in the setting of ventral hernia w/ obstruction , bowel perforation and peritonitis MTDD
[2017-01-15] MEDS ORDERED: POTASSIUM CHLORIDE 10 MEQ SR TABLET PO ONE (12:00)
--- NOTE | 2017-01-15 13:06 | REP ---
Clinical: Acute cough . Comparison: 01/11/2017. Technique: PA and lateral. Findings: The mediastinum and cardiac silhouette are normal. The lung khan are clear and without acute consolidation, effusion, or pneumothorax. The skeletal structures are intact and normal. Impression: No focal consolidation. Signed by Ryley Roach MD 01/15/2017 12:58 P
[2017-01-15 14:00] VITALS: BP 95/50
[2017-01-15] MEDS: metroNIDAZOLE (FLAGYL) 500 MG TAB PO SCH ×2 (15:10→22:12)
[2017-01-15] MEDS: FLUCONAZOLE 100 MG TAB PO SCH (18:24)
[2017-01-15] MEDS: ERTAPENEM SODIUM 1 GM in NS MINI-BAG PLUS 50 ML IV SCH (20:19)
[2017-01-15] MEDS: LEVEMIR (INSULIN DETEMIR) 1 UNITS/0.01ML SC SCH (20:43)
[2017-01-15] MEDS: ANALGESIC BALM CRM 120 GM TOP PRN (20:46)
[2017-01-15 22:00] VITALS: BP 120/58
[2017-01-16] MEDS: IPRATROPIUM 0.5MG/ALBUTEROL 2.5MG INH SOL UD 3ML (DUONEB)(J7620) NEB SCH ×6 (03:20→23:13)
[2017-01-16] MEDS: ANALGESIC BALM CRM 120 GM TOP PRN ×2 (03:35→20:01)
[2017-01-16 05:44] LABS: BASO % 0.2 % (0.0-1.0); EOS # 0.3 K/mm3 (0.0-0.50); EOS % 1.5 % (0.0-3.0); LARGE UNSTAINED CELL # 0.3 K/mm3 (0.0-0.4); LARGE UNSTAINED CELL % 1.6 % (0.0-4.0); LYMPH # 2.2 K/mm3 (1.5-4.5); MEAN CORPUSCULAR HEMOGLOBIN 24.2 pg (27.0-33.0); MEAN CORPUSCULAR HGB CONC 29.6 g/dl (32.0-36.5); MEAN CORPUSCULAR VOLUME 81.6 fl (80.0-96.0); MONO # 1.2 K/mm3 (0.0-0.8); MONO % 5.8 % (0.0-5.0); NEUTROPHILS # 17.1 K/mm3 (1.8-7.7); NEUTROPHILS % 81.8 % (36.0-66.0); PLATELET COUNT, AUTOMATED 426 k/mm3 (150-450); RED CELL DISTRIBUTION WIDTH 15.9 % (11.5-14.5); WHITE BLOOD COUNT 20.9 K/mm3 (4.0-10.0)
[2017-01-16 06:00] VITALS: BP 125/60
[2017-01-16 06:03] LABS: ALBUMIN 1.6 GM/DL (3.2-5.2); ALBUMIN/GLOBULIN RATIO 0.42 (1.00-1.93); ALKALINE PHOSPHATASE 135 U/L (45-117); ALT/SGPT 15 U/L (12-78); ANION GAP 10 MEQ/L (8-16); AST/SGOT 10 U/L (15-37); BILIRUBIN,TOTAL 0.4 MG/DL (0.2-1.0); BLOOD UREA NITROGEN 5 MG/DL (7-18); CALCIUM LEVEL 7.5 MG/DL (8.5-10.1); CARBON DIOXIDE LEVEL 29 MEQ/L (21-32); CHLORIDE LEVEL 102 MEQ/L (98-107); CREATININE FOR GFR 0.63 MG/DL (0.55-1.02); GLOMERULAR FILTRATION RATE > 60.0 (>58); GLUCOSE, FASTING 185 MG/DL (70-105); MAGNESIUM LEVEL 1.8 MG/DL (1.8-2.4); POTASSIUM SERUM 3.5 MEQ/L (3.5-5.1); SODIUM LEVEL 141 MEQ/L (136-145); TOTAL PROTEIN 5.4 GM/DL (6.4-8.2)
[2017-01-16] MEDS: HEPARIN SOD (PORCINE) 5000 UNITS/ML VIAL SC SCH ×3 (06:08→21:31)
[2017-01-16] MEDS: metroNIDAZOLE (FLAGYL) 500 MG TAB PO SCH ×3 (06:08→21:31)
[2017-01-16] MEDS: HumaLOG INSULIN (NovoLOG) PER UNIT SC SCH ×4 (08:28→21:00)
[2017-01-16] MEDS: OMEPRAZOLE 20 MG CAP PO SCH (08:29)
[2017-01-16] MEDS: FLUCONAZOLE 100 MG TAB PO SCH (08:29)
[2017-01-16] MEDS: POTASSIUM CHLORIDE 10 MEQ SR TABLET PO SCH ×2 (08:29→20:01)
--- NOTE | 2017-01-16 12:12 | IPN ---
DATE OF SERVICE: 01/16/2017 Ms. Castañeda is feeling well today and would like to go home. Tolerating diet. Still having some loose stools. No abdominal pain. Temperature 97.5, pulse 87, respiratory rate 18, blood pressure 125/60, 93% on room air. Intake and output (I and O) notable for a positive fluid balance of 580. Body mass index of 67.4. She is awake, appropriately interactive. Sitting in gerichair. Mucous membranes moist. Neck is supple. Breathing is symmetrical, rested. I-to-E ratio is 1:3, diminished throughout. Heart is in a regular rate and rhythm. Abdomen is soft, doughy, nontender. White cell count 20.9, hemoglobin 8.9 trending downward, and platelets of 426. BUN is 5, creatinine 0.63. My assessment is as follows: This is a 41-year-old with known diabetes, hypertension, and gastroesophageal reflux disease (GERD), who has not been receiving outpatient therapy for the same. He had a surgical procedure related to her hernia and is currently in recovery phase with continued leukocytosis and one episode of fever on 01/14/2017. The plan will be as follows: 1. Infectious disease. The patient continues on broad-spectrum antibiotics and Flagyl. Will send stool for Clostridium (C) difficile. Chest x-ray was unremarkable. 2. The patient has diabetes. Fingersticks are showing better control. Continue to monitor clinically. 3. The patient has gastroesophageal reflux disease (GERD). On a proton pump inhibitor (PPI). 4. The patient has developing anemia. There may be a role for a transfusion in the future. 5. The patient has resolved hypokalemia and hypomagnesemia. 6. The patient is being treated for thrush, as well as some rectal candidal findings with fluconazole. 7. The patient has back pain, which is controlled. 8. Sepsis, present on admission, in the setting of ventral hernia w/ obstruction , bowel perforation and peritonitis MTDD
[2017-01-16] MEDS: ACETAMINOPHEN TAB 650MG DOSE (2X325MG) PO PRN (12:48)
[2017-01-16 14:00] VITALS: BP 123/57
[2017-01-16] MEDS: ERTAPENEM SODIUM 1 GM in NS MINI-BAG PLUS 50 ML IV SCH (20:01)
[2017-01-16] MEDS: LEVEMIR (INSULIN DETEMIR) 1 UNITS/0.01ML SC SCH (21:31)
[2017-01-16 22:00] VITALS: BP 145/64
[2017-01-17] MEDS: ACETAMINOPHEN TAB 650MG DOSE (2X325MG) PO PRN ×2 (03:09→21:41)
[2017-01-17] MEDS: IPRATROPIUM 0.5MG/ALBUTEROL 2.5MG INH SOL UD 3ML (DUONEB)(J7620) NEB SCH ×6 (03:41→23:12)
[2017-01-17] MEDS: HEPARIN SOD (PORCINE) 5000 UNITS/ML VIAL SC SCH ×3 (05:51→21:40)
[2017-01-17] MEDS: metroNIDAZOLE (FLAGYL) 500 MG TAB PO SCH ×3 (05:52→17:14)
[2017-01-17 06:00] VITALS: BP 123/58
[2017-01-17 06:12] LABS: BASO # 0.1 K/mm3 (0.0-0.2); BASO % 0.3 % (0.0-1.0); EOS # 0.3 K/mm3 (0.0-0.50); EOS % 1.7 % (0.0-3.0); LARGE UNSTAINED CELL # 0.3 K/mm3 (0.0-0.4); LARGE UNSTAINED CELL % 1.6 % (0.0-4.0); LYMPH # 2.1 K/mm3 (1.5-4.5); LYMPH % 9.6 % (24.0-44.0); MEAN CORPUSCULAR HEMOGLOBIN 24.3 pg (27.0-33.0); MEAN CORPUSCULAR HGB CONC 29.6 g/dl (32.0-36.5); MEAN CORPUSCULAR VOLUME 82.1 fl (80.0-96.0); MONO % 5.5 % (0.0-5.0); NEUTROPHILS # 15.2 K/mm3 (1.8-7.7); NEUTROPHILS % 81.3 % (36.0-66.0); PLATELET COUNT, AUTOMATED 457 k/mm3 (150-450); WHITE BLOOD COUNT 18.8 K/mm3 (4.0-10.0)
[2017-01-17 06:23] LABS: ALBUMIN 1.7 GM/DL (3.2-5.2); ALBUMIN/GLOBULIN RATIO 0.38 (1.00-1.93); ALKALINE PHOSPHATASE 123 U/L (45-117); ALT/SGPT 11 U/L (12-78); ANION GAP 6 MEQ/L (8-16); AST/SGOT 12 U/L (15-37); BILIRUBIN,TOTAL 0.3 MG/DL (0.2-1.0); BLOOD UREA NITROGEN 5 MG/DL (7-18); CALCIUM LEVEL 8.5 MG/DL (8.5-10.1); CARBON DIOXIDE LEVEL 29 MEQ/L (21-32); CHLORIDE LEVEL 105 MEQ/L (98-107); CREATININE FOR GFR 0.64 MG/DL (0.55-1.02); GLOMERULAR FILTRATION RATE > 60.0 (>58); GLUCOSE, FASTING 190 MG/DL (70-105); MAGNESIUM LEVEL 1.9 MG/DL (1.8-2.4); POTASSIUM SERUM 3.4 MEQ/L (3.5-5.1); SODIUM LEVEL 140 MEQ/L (136-145); TOTAL PROTEIN 6.2 GM/DL (6.4-8.2)
[2017-01-17] MEDS: OMEPRAZOLE 20 MG CAP PO SCH (08:07)
[2017-01-17] MEDS: FLUCONAZOLE 100 MG TAB PO SCH (08:07)
[2017-01-17] MEDS: POTASSIUM CHLORIDE 10 MEQ SR TABLET PO SCH ×2 (08:08→21:41)
[2017-01-17] MEDS: HumaLOG INSULIN (NovoLOG) PER UNIT SC SCH ×4 (08:08→20:51)
[2017-01-17] MEDS: NYSTATIN 500,000 U/5 ML SUSP UDC SS SCH ×2 (11:25→17:14)
[2017-01-17] MEDS: CIPROFLOXACIN 500 MG TAB PO SCH ×2 (11:26→17:14)
[2017-01-17 14:00] VITALS: BP 131/60
[2017-01-17] MEDS ORDERED: POTASSIUM CHLORIDE 10 MEQ SR TABLET PO ONE (14:00)
--- NOTE | 2017-01-17 16:21 | IPN ---
DATE: 01/17/2017 Ms. Castañeda is feeling well today. She would like to go home. She has no complaints of pain, chest pain, shortness of breath. She is having multiple stools, and she does complain of some discomfort on her tongue. Temperature is 97.6, pulse 76, respiratory rate 16, blood pressure 123/58, 95% on room air. Intake and output notable for a positive fluid balance of 710, four bowel movements yesterday. Mucous membranes are moist. She has adherent white plaques on her tongue, which were described to me as vesicles but do not appear to be vesicles at this point. Neck is supple, thick. Breathing is symmetrical and rested. Heart is distant sounding. Abdomen is soft, doughy, nontender to deep palpation. White cell count 18.8, hemoglobin 8.7, platelets 457, potassium 3.4, BUN 5, creatinine 0.6, albumin 1.7.Sputum has yeast. ASSESSMENT: This is a 41-year-old with known diabetes, hypertension and gastroesophageal reflux disease (GERD), who had not been receiving outpatient therapy. She had a surgical procedure related to her hernia and is currently in the recovery phase with continued leukocytosis, which is improving. PLAN: 1. Infectious disease: I did discuss the case in person with Dr. Sharma. We stopped ertapenem and placed the patient on oral Cipro and Flagyl. She is on fluconazole for oral and perineal candidal findings. Will also restart Nystatin swish and swallow as she is having recurrence of symptoms on fluconazole that were helped previously with Nystatin. I think it is also reasonable to check the patient for HIV, and as such, I have discussed this with the patient, and she has consented to testing. 2. The patient has diabetes. Fingersticks are reasonably well controlled. This could also play into her candidal findings. 3. The patient has gastroesophageal reflux disease (GERD), on proton pump inhibitor (PPI). 4. The patient is developing anemia. No role for transfusion at this time. 5. The patient has continued hypokalemia, which will be repleted. She is on standing potassium and I have given her an additional dose as well today. 6. The patient has back pain, which is reasonably well controlled. 7. The patient is morbidly obese, which complicates care. 8. The patient has hypoalbuminemia.
[2017-01-17] MEDS: LEVEMIR (INSULIN DETEMIR) 1 UNITS/0.01ML SC SCH (21:40)
[2017-01-17] MEDS: ANALGESIC BALM CRM 120 GM TOP PRN (21:41)
[2017-01-17 22:00] VITALS: BP 120/60
[2017-01-18] MEDS: NYSTATIN 500,000 U/5 ML SUSP UDC SS SCH ×2 (00:09→05:17)
[2017-01-18] MEDS: metroNIDAZOLE (FLAGYL) 500 MG TAB PO SCH ×2 (00:10→05:17)
[2017-01-18] MEDS: IPRATROPIUM 0.5MG/ALBUTEROL 2.5MG INH SOL UD 3ML (DUONEB)(J7620) NEB SCH ×3 (03:18→11:05)
[2017-01-18] MEDS: ACETAMINOPHEN TAB 650MG DOSE (2X325MG) PO PRN (03:41)
[2017-01-18] MEDS: CIPROFLOXACIN 500 MG TAB PO SCH (05:17)
[2017-01-18] MEDS: HEPARIN SOD (PORCINE) 5000 UNITS/ML VIAL SC SCH (05:17)
[2017-01-18 06:00] VITALS: BP 125/67
[2017-01-18 07:00] LABS: BASO # 0.1 K/mm3 (0.0-0.2); BASO % 0.4 % (0.0-1.0); EOS # 0.3 K/mm3 (0.0-0.50); EOS % 1.9 % (0.0-3.0); LARGE UNSTAINED CELL # 0.2 K/mm3 (0.0-0.4); LARGE UNSTAINED CELL % 1.6 % (0.0-4.0); LYMPH # 2.2 K/mm3 (1.5-4.5); MEAN CORPUSCULAR HEMOGLOBIN 24.5 pg (27.0-33.0); MEAN CORPUSCULAR HGB CONC 30.1 g/dl (32.0-36.5); MEAN CORPUSCULAR VOLUME 81.2 fl (80.0-96.0); MONO # 0.8 K/mm3 (0.0-0.8); MONO % 5.7 % (0.0-5.0); NEUTROPHILS % 76.5 % (36.0-66.0); PLATELET COUNT, AUTOMATED 439 k/mm3 (150-450); RED CELL DISTRIBUTION WIDTH 16.2 % (11.5-14.5); WHITE BLOOD COUNT 14.3 K/mm3 (4.0-10.0)
[2017-01-18 07:33] LABS: ALBUMIN 1.8 GM/DL (3.2-5.2); ALBUMIN/GLOBULIN RATIO 0.41 (1.00-1.93); ALKALINE PHOSPHATASE 122 U/L (45-117); ALT/SGPT 11 U/L (12-78); ANION GAP 6 MEQ/L (8-16); AST/SGOT 13 U/L (15-37); BILIRUBIN,TOTAL 0.4 MG/DL (0.2-1.0); BLOOD UREA NITROGEN 5 MG/DL (7-18); CALCIUM LEVEL 8.4 MG/DL (8.5-10.1); CARBON DIOXIDE LEVEL 29 MEQ/L (21-32); CHLORIDE LEVEL 107 MEQ/L (98-107); CREATININE FOR GFR 0.69 MG/DL (0.55-1.02); GLOMERULAR FILTRATION RATE > 60.0 (>58); GLUCOSE, FASTING 180 MG/DL (70-105); MAGNESIUM LEVEL 1.9 MG/DL (1.8-2.4); POTASSIUM SERUM 3.8 MEQ/L (3.5-5.1); SODIUM LEVEL 142 MEQ/L (136-145); TOTAL PROTEIN 6.2 GM/DL (6.4-8.2)
[2017-01-18] MEDS: POTASSIUM CHLORIDE 10 MEQ SR TABLET PO SCH (07:57)
[2017-01-18] MEDS: FLUCONAZOLE 100 MG TAB PO SCH (07:57)
[2017-01-18] MEDS: HumaLOG INSULIN (NovoLOG) PER UNIT SC SCH (07:57)
[2017-01-18] MEDS: OMEPRAZOLE 20 MG CAP PO SCH (07:58)
[2017-01-18] MEDS ORDERED: FLAG500T PO (08:59)
[2017-01-18] MEDS ORDERED: CIPR500T89 PO (08:59)
--- NOTE | 2017-01-19 16:09 | DSES ---
DATE OF ADMISSION: 01/06/2017 DATE OF DISCHARGE: 01/18/2017 ADMISSION DIAGNOSIS: Small-bowel obstruction with large ventral hernia. DISCHARGE DIAGNOSES: 1. Small-bowel obstruction. 2. Strangulated and incarcerated ventral hernias and perforated bowel. HOSPITAL COURSE: The patient is a 41-year-old female who was admitted to the hospital on January 06 with nausea, vomiting, abdominal distension, and severe abdominal pain. She had been to the emergency room on January 05 with similar symptoms. Recommended to stay overnight; however, she left against medical advice (AMA) due to having a court date that she could not miss. She came back into the hospital again on January 06 with the same findings, getting progressively worse. Had an elevated white count of 24.8. Lactic acid was 3.6; therefore, she was admitted. Nasogastric (NG) tube was placed. Started on intravenous (IV) fluids, antibiotics, and admitted to the floor. Within 6 hours, repeat labs were obtained. Her lactic acid jumped from 3.6 up to 6.1. On repeat exam she was having fevers. She was starting to become tachycardic; therefore, recommendation was to take her to the operating room for emergent surgery. She was brought to the operating room (OR), and upon entering the abdomen there was stool encountered. She had a extensive surgery with extensive lysis of adhesions, takedown of multiple incarcerated and some strangulated ventral hernias. Lots of adhesions and internal bands were all released, and she ended up with a 70 cm section of necrotic small intestine with a perforation in it that was all resected. Once this was completed, her abdomen was closed with a drain in place, and she was left intubated overnight and placed in the intensive care unit (ICU). The following morning she was doing well. She was answering questions on the ventilator. She was kept intubated again due to having some low blood pressures. By the next morning on Tuesday she was extubated. She continued to progress well, had passed gas, tolerated diet, had good bowel movements. Her Julien drain outputs were all serosanguineous. Her white count ended up coming down to 13 after a few days. She was transferred to the regular floor, and plan was to discharge her home; however, she suddenly started to develop fevers again, and her white count jumped up from 13 back into the 20s. Other than that, she was asymptomatic. No changes in her output. She was tolerating food, having normal bowel movements, ambulating in the halls. She had repeat cultures drawn as well as a repeat CT the abdomen, all of which were negative for any signs of fluid collections or abscess formation or pneumonia. She was kept on ertapenem that entire time. She finally had one of her venous blood cultures returned from January 06 that showed Clostridium paraputrificum. Because of this she was started on Flagyl; however, her white count still continued to come down very slowly. By the morning of January 16 her white count was down to 18. She was switched from all IV antibiotics to by mouth Cipro and Flagyl and monitored for one more day, which was January 18. Then her white count had returned down to 14.3. Since appeared to be tolerating by mouth antibiotics, plan was to discharge home. She was discharged home on 01/18/2017 to followup with me in the office in a week to have her sutures removed. She also had a little bit of drainage from her midline incision, where a few anna had been removed. It was all serosanguineous drainage. No signs of infection, but she was able to pack those wounds herself and change her dressings. Internal medicine was also consulted throughout the stay. They got her started back on some home medications for diabetes that she had been neglecting for the past couple of months, so she will be discharged home with those as well as her antibiotics. PLAN: Discharge home today. Followup with me in the office in 1 week for staple removal. Continue to monitor and pack her dressing changes once a day. She has prescriptions for Cipro, Flagyl as well as insulin sent to her pharmacy, and she also will be set up with a primary care physician upon discharge as well to keep monitoring her closely for her diabetes.
== END 2017-01-18 12:14 | disposition home health service (06) | DRG 710 ==
LOC: EDBD 01:51 → M ED 02:37 → M ED INP 12:29 → M PCU 14:59 → M ICU 22:11 → M MSPAV 01-11 13:40
PROVIDERS: ADMIT Internal Medicine; ATTEND Surgery
PROC: 0DB80ZZ Excision of Small Intestine, Open Approach (ICD-10-PCS; 2017-01-06)
PROC: 05HM33Z Insertion of Infusion Device into Right Internal Jugular Vein, Percutaneous Approach (ICD-10-PCS; 2017-01-06)
PROC: 0DN80ZZ Release Small Intestine, Open Approach (ICD-10-PCS; principal; 2017-01-06 19:08)
PROC: 0BJ08ZZ Inspection of Tracheobronchial Tree, Via Natural or Artificial Opening Endoscopic (ICD-10-PCS; 2017-01-07)
PROC: 3E1F88Z Irrigation of Respiratory Tract using Irrigating Substance, Via Natural or Artificial Opening Endoscopic (ICD-10-PCS; 2017-01-07)
PROC: 5A1945Z Respiratory Ventilation, 24-96 Consecutive Hours (ICD-10-PCS; 2017-01-07)
DX: A41.4 Sepsis due to anaerobes (principal); R65.21 Severe sepsis with septic shock; Z68.44 Body mass index [BMI] 60.0-69.9, adult; J96.91 Respiratory failure, unspecified with hypoxia; K65.9 Peritonitis, unspecified; N17.9 Acute kidney failure, unspecified; K43.0 Incisional hernia with obstruction, without gangrene; J96.92 Respiratory failure, unspecified with hypercapnia; E87.4 Mixed disorder of acid-base balance; E66.01 Morbid (severe) obesity due to excess calories; H05.20 Unspecified exophthalmos; E88.09 Other disorders of plasma-protein metabolism, not elsewhere classified; E83.42 Hypomagnesemia; E11.9 Type 2 diabetes mellitus without complications; J98.11 Atelectasis; F17.210 Nicotine dependence, cigarettes, uncomplicated; E87.6 Hypokalemia; D72.829 Elevated white blood cell count, unspecified; D64.9 Anemia, unspecified; G47.33 Obstructive sleep apnea (adult) (pediatric); I10 Essential (primary) hypertension; E78.5 Hyperlipidemia, unspecified; K21.9 Gastro-esophageal reflux disease without esophagitis; Z91.19 Patient's noncompliance with other medical treatment and regimen; Z91.14 Patient's other noncompliance with medication regimen; Z86.718 Personal history of other venous thrombosis and embolism

== ENCOUNTER 2017-01-26 14:22 | Inpatient (IN) | payer OTHER ==
[~2017-01-26] VITALS: Ht 160 cm; Wt 166.0 kg
[~2017-01-26 14:22] MED LIST changes: +CIPR500T89 PO; +FLAG500T PO; +INSUDET SC; +INSUHUMDS SC
[2017-01-26 19:13] VITALS: BP 124/76
[2017-01-26 19:16] VITALS: BP 117/64
[2017-01-26] MEDS ORDERED: GLUCAGON FOR INJ 1 MG VIAL (J1610) SC PRN (20:00)
[2017-01-26] MEDS ORDERED: ONDANSETRON 4MG/2ML VIAL (J2405) IV PRN (20:00)
[2017-01-26] MEDS ORDERED: ACETAMINOPHEN TAB 650MG DOSE (2X325MG) PO PRN (20:00)
[2017-01-26] MEDS ORDERED: DEXTROSE 50% 50 ML SYRINGE IV PRN (20:00)
[2017-01-26] MEDS ORDERED: GLUCOSE 4 GM CHEW TABLET PO PRN (20:00)
[2017-01-26 20:02] LABS: BASO # 0.1 K/mm3 (0.0-0.2); BASO % 0.7 % (0.0-1.0); EOS # 0.5 K/mm3 (0.0-0.50); EOS % 4.3 % (0.0-3.0); LARGE UNSTAINED CELL # 0.2 K/mm3 (0.0-0.4); LARGE UNSTAINED CELL % 1.7 % (0.0-4.0); LYMPH # 3.3 K/mm3 (1.5-4.5); LYMPH % 27.3 % (24.0-44.0); MEAN CORPUSCULAR HGB CONC 30.3 g/dl (32.0-36.5); MONO # 0.9 K/mm3 (0.0-0.8); MONO % 7.5 % (0.0-5.0); NEUTROPHILS # 6.6 K/mm3 (1.8-7.7); NEUTROPHILS % 58.5 % (36.0-66.0); PLATELET COUNT, AUTOMATED 403 k/mm3 (150-450); RED CELL DISTRIBUTION WIDTH 15.9 % (11.5-14.5); WHITE BLOOD COUNT 11.3 K/mm3 (4.0-10.0)
[2017-01-26 20:09] LABS: INR 1.15
[2017-01-26 20:28] LABS: ALBUMIN 2.6 GM/DL (3.2-5.2); ALBUMIN/GLOBULIN RATIO 0.57 (1.00-1.93); ALKALINE PHOSPHATASE 167 U/L (45-117); ALT/SGPT 13 U/L (12-78); ANION GAP 10 MEQ/L (8-16); AST/SGOT 16 U/L (15-37); BILIRUBIN,TOTAL 0.7 MG/DL (0.2-1.0); BLOOD UREA NITROGEN 8 MG/DL (7-18); CALCIUM LEVEL 8.5 MG/DL (8.5-10.1); CARBON DIOXIDE LEVEL 25 MEQ/L (21-32); CHLORIDE LEVEL 103 MEQ/L (98-107); CREATININE FOR GFR 0.88 MG/DL (0.55-1.02); GLOMERULAR FILTRATION RATE > 60.0 (>58); GLUCOSE, FASTING 237 MG/DL (70-105); MAGNESIUM LEVEL 1.8 MG/DL (1.8-2.4); SODIUM LEVEL 138 MEQ/L (136-145); TOTAL PROTEIN 7.2 GM/DL (6.4-8.2)
[2017-01-26] MEDS ORDERED: ATOR1TAB18 PO (20:39)
[2017-01-26] MEDS ORDERED: HUMA100I5 SC (20:39)
[2017-01-26] MEDS ORDERED: SUCR1SS PO (20:39)
[2017-01-26] MEDS ORDERED: BASA100I SC (20:39)
[2017-01-26] MEDS ORDERED: METF1000 PO (20:39)
[2017-01-26] MEDS ORDERED: POTASSIUM CHLORIDE 10 MEQ SR TABLET PO ONE (20:45)
[2017-01-26] MEDS: HumaLOG INSULIN (NovoLOG) PER UNIT SC SCH (20:48)
[2017-01-26] MEDS: SENOKOT S TAB PO SCH (21:00)
[2017-01-26] MEDS: PERCOCET 5MG/325MG TAB PO PRN (21:11)
[2017-01-26] MEDS: ATORVASTATIN 20 MG TAB PO SCH (21:11)
[2017-01-26] MEDS: LEVEMIR (INSULIN DETEMIR) 1 UNITS/0.01ML SC SCH (21:12)
[2017-01-26] MEDS: HEPARIN DRIP 25,000 UNITS in APPROPRIATE DILUENT 1 EA IV SCH (21:14)
[2017-01-26] MEDS ORDERED: MAG SULF 1GM/100ML (MAG RUN) 1 GM in APPROPRIATE DILUENT 1 EA IV ONE (21:30)
[2017-01-26] MEDS ORDERED: WARF-21 PO (23:28)
[2017-01-26] MEDS ORDERED: INSUDET SC (23:28)
[2017-01-26] MEDS ORDERED: GABA-282 PO (23:28)
[2017-01-26] MEDS ORDERED: FERR325T PO (23:28)
[2017-01-26] MEDS ORDERED: VITA-130 PO (23:28)
[2017-01-26] MEDS ORDERED: OMEP20TA PO (23:28)
[2017-01-26] MEDS ORDERED: LISI10TA4 PO (23:28)
[2017-01-26] MEDS ORDERED: CIPR500T3 PO (23:28)
[2017-01-26] MEDS ORDERED: METR500T10 PO (23:28)
[2017-01-27] VITALS (8 sets, daily range): BP systolic 107–127; BP diastolic 58–72; O2SAT 95–96
[2017-01-27 03:05] LABS: MEAN CORPUSCULAR HEMOGLOBIN 23.1 pg (27.0-33.0); MEAN CORPUSCULAR HGB CONC 29.4 g/dl (32.0-36.5); MEAN CORPUSCULAR VOLUME 78.5 fl (80.0-96.0); RED CELL DISTRIBUTION WIDTH 16.1 % (11.5-14.5); WHITE BLOOD COUNT 10.6 K/mm3 (4.0-10.0)
[2017-01-27 03:11] LABS: INR 1.12
[2017-01-27] MEDS: HEPARIN SOD (PORCINE) 5000 UNITS/ML VIAL IV PRN ×2 (03:53→21:40)
[2017-01-27 04:07] LABS: ANION GAP 11 MEQ/L (8-16); BLOOD UREA NITROGEN 7 MG/DL (7-18); CALCIUM LEVEL 7.9 MG/DL (8.5-10.1); CARBON DIOXIDE LEVEL 25 MEQ/L (21-32); CHLORIDE LEVEL 105 MEQ/L (98-107); CREATININE FOR GFR 0.78 MG/DL (0.55-1.02); GLOMERULAR FILTRATION RATE > 60.0 (>58); GLUCOSE, FASTING 178 MG/DL (70-105); MAGNESIUM LEVEL 2.2 MG/DL (1.8-2.4); POTASSIUM SERUM 3.5 MEQ/L (3.5-5.1); SODIUM LEVEL 141 MEQ/L (136-145)
[2017-01-27] MEDS ORDERED: POTASSIUM CHLORIDE 10 MEQ SR TABLET PO ONE (04:45)
[2017-01-27] MEDS: PERCOCET 5MG/325MG TAB PO PRN ×3 (06:31→21:40)
[2017-01-27] MEDS: PANTOPRAZOLE 40MG TAB (PROTONIX) PO SCH (08:12)
[2017-01-27] MEDS: HumaLOG INSULIN (NovoLOG) PER UNIT SC SCH ×4 (08:12→21:00)
[2017-01-27] MEDS: SUCRALFATE 1 GM TAB PO SCH ×3 (08:13→17:19)
[2017-01-27] MEDS: SENOKOT S TAB PO SCH ×2 (08:13→21:00)
[2017-01-27] MEDS: HEPARIN DRIP 25,000 UNITS in APPROPRIATE DILUENT 1 EA IV SCH ×2 (08:14→19:26)
--- NOTE | 2017-01-27 12:49 | ECGEPIP ---
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 Prominent voltage in aVL with repolarization abnormalities in keeping with LVH by Porfirio criteria Poor precordial R-wave progression and QS pattern III and aVF Rule out prior AWMI/IWMI. Newton shift and likely different precordial lead placement from prior tracing 01/06/17. Electronically Signed On 01-27-2017 12:49:09 EDT by Cisco Sanchez
--- NOTE | 2017-01-27 14:22 | HPE ---
DATE OF ADMISSION: 01/26/2017 PRIMARY CARE PROVIDER: Dr. Greenfield GENERAL SURGEON: Dr. Sharma CHIEF COMPLAINT: Shortness of breath, dyspnea on exertion. HISTORY OF PRESENT ILLNESS: This is a 41-year-old female patient with underlying medical history of morbid obesity, type 2 diabetes, hypertension, dyslipidemia, gastroesophageal reflux disease (GERD), history of left upper extremity deep vein thrombosis (DVT). Last year was on Coumadin. Poorly compliant with medical therapy. Recently in December 2016 patient was admitted to the hospital for incarcerated ventral hernia status post partial ileectomy by Dr. Sharma. Subsequently patient was discharged. Instructed to continue Coumadin, except the patient did not start taking Coumadin until about 3 days ago. Patient baseline is able to ambulate for about half a mile, but for the past 2 days patient has been having dyspnea on exertion with one flight of stairs. That is progressively getting worse. He subsequently presented to [facility]. Was found to have pulmonary embolism. Patient denies history of sleep apnea. Does report [id number]-day smoking history for the past 20 years. Has not smoked since the patient was admitted in December for the incarcerated ventral wall hernia. Patient denies any abdominal pain. Does report that she still has a staple. Is in the process of getting it removed but does report drainage from the area of surgical site. Denies any abdominal pain. Denies any chest pain, pressure, or discomfort. Denies any lower extremity swelling. Denies any nausea, vomiting. Tolerating oral. Poorly compliant at baseline. ALLERGIES: To MORPHINE with itchiness. PAST MEDICAL HISTORY: 1. Morbid obesity. 2. Type 2 diabetes. 3. Hypertension. 4. Dyslipidemia. 5. GERD. 6. History of left upper extremity DVT, poorly compliant with medication. PAST SURGICAL HISTORY: 1. Status post partial ileectomy for incarcerated ventral hernia with hernia repair. 2. Laparoscopic cholecystectomy.' 3. Two sections. 4. Ventral hernia repair in [place] 15 years ago. FAMILY HISTORY: Noncontributory. SOCIAL HISTORY: Swh-hmof-oaq-day smoking history. Has not smoked since December. Denies alcohol use. Denies illicit drug use. REVIEW OF SYSTEMS: A 10-point review of systems is negative except for mentioned in the history of present illness (HPI). HOME MEDICATIONS: - Lipitor 80 mg by mouth daily - Levemir insulin 10 units subcutaneous at bedtime - insulin premeal via scale - metformin 1000 mg by mouth twice a day - Carafate 10 mL by mouth twice a day PHYSICAL EXAMINATION: VITAL SIGNS: Temperature 98.9, pulse 85, respirations 22, blood pressure 117/64, pulse oximetry 95% on 40% Venturi mask. GENERAL: Patient morbidly obese in no acute distress, comfortable. HEENT: Normocephalic, atraumatic. PULMONARY: Distant breath sounds bilateral. No wheeze, rales, or rhonchi. CARDIAC: Regular rate and rhythm. Normal S1, S2. ABDOMEN: Soft, obese. Staple intact with purulent drainage from the surgical site. EXTREMITIES: No edema, bilateral lower extremities. EKG shows poor R-wave progression, sinus rhythm, T-wave inversion, V1-V3. No significant change compared to previous. LABORATORY: At [facility]: Sodium 140, potassium 3.3, chloride 101, bicarbonate 28.4, BUN 7, creatinine 1.05. Troponin 0.1, repeat 0.09. WBC: 7.9, hemoglobin and hematocrit 23.6/35.9, platelets 405. D-dimer 4500. ASSESSMENT AND PLAN: This is a 41-year-old female patient with underlying medical history of morbid obesity, type 2 diabetes, hypertension, dyslipidemia, gastroesophageal reflux disease (GERD), history of left upper extremity deep vein thrombosis (DVT), poor compliance, recent incarcerated ventral hernia with partial ileectomy. Was transferred from [facility] to [facility] for pulmonary embolism (PE). 1. Acute hypoxia secondary to PE. Patient placed on heparin drip. Discussed different agents available. Patient tentatively would like to be back on Coumadin. Will defer final anticoagulation recommendation to the daytime team. Currently patient will be on heparin. The patient had mild troponin leak at [facility], likely secondary to right heart straining due to PE. Will trend cardiac enzymes. Repeat cardiac enzyme has been negative. Followup echocardiogram. Continue to monitor. Followup PTT. Adjust heparin as needed. 2. Hypokalemia. Supplement potassium. Followup magnesium. Continue to monitor. 3. Purulent drainage from surgical wound. Case discussed with Dr. Sharma, who is on vacation. Recommend wet-to-dry dressing. Patient currently is not septic. Will continue to monitor, followup cultures. If worsens, will consider consulting surgery. 4. Insulin-dependent diabetes. Basal bolus insulin as per protocol. Follow fingersticks. 5. Dyslipidemia. Continue statin. 6. GERD. Continue proton pump inhibitor (PPI). 7. Hypertension. Monitor blood pressure. Patient not on any medication at home. 8. Morbid obesity complicating care. The patient was never officially diagnosed with sleep apnea. Will monitor the patient closely. 9. Poor compliance, complicating care. Counseling provided. 10. Smoking history. Counseling provided. Patient has not smoked for the past 2 months. 11. Deep vein thrombosis (DVT) prophylaxis. Patient currently being treated for DVT. DISPOSITION: Pending clinical improvement, wound care, final decisions for the outpatient anticoagulation. HAYDEN
--- NOTE | 2017-01-27 16:58 | ECHO ---
DATE OF PROCEDURE: 01/26/2017 AGE: 41 GENDER: Female HEIGHT: 63 inches WEIGHT: 366 pounds BODY SURFACE AREA: 2.5 sq m INPATIENT: Intensive Care Unit (ICU) Room 3206. REFERRING PHYSICIAN: Dr. Abad INDICATION: Dyspnea. MEASUREMENTS: 2-D MEASUREMENTS: RV- 5.2 cm LV- 4.8 cm Septum- 1.0 cm Posterior wall- 1.0 cm Aortic root- 3.0 cm LA-3.8 cm LVEF- 60% DOPPLER MEASUREMENTS: AV-2.0 m/s LVOT- 1.3 m/s LVOT DIAMETER: 1.9 cm MV-E 60 A 68 E/A ratio 0.9. Early mitral deceleration time 218 ms E prime- 6.5 A prime- 10 E/E prime ratio 9. PV- 1.2 m/s Pulmonary artery acceleration time 63 ms RVSP- 67-72 mmHg IVC- 2.1 cm COMMENTS: Normal sinus rhythm without intraventricular conduction disturbance. Technically challenging study in light of the patient's body habitus but diagnostically useful information was still obtained. Normal left heart chamber sizes with at least moderately dilated right heart chambers. Left ventricle (LV) wall thickness was normal. On real-time imaging from the parasternal and projections there was a septal wall motion abnormality creating a "D-shaped" appearance of the left ventricular in the short axis projection. Other wall motion was hyperkineti. Normal-appearing mitral valvular apparatus and leaflet excursion with no posterior systolic buckling. Three equal sized aortic cusps of normal thickness and cusp separation. Normal aortic root size. No apparent intracardiac mass. Marginal posterior pericardial effusion measuring 2-4 mmHg. No sign of cardiac chamber compression. Color flow Doppler study taken from the parasternal and apical projection showed no mitral or aortic insufficiency but mild to moderate tricuspid insufficiency. Guided continuous wave Doppler of her aortic valve showed a peak systolic velocity, was borderline increased. However, this was not related to aortic valve disease but hyperkinetic flow. Her dimensionless index was well within normal limits. Pulsed and continuous wave Doppler of her LV inflow tract taken from the apical four-chamber projection showed normal diastolic filling velocities against mitral stenosis. The filling pattern was showing a slightly more prominently diastolic / atrial dependent. A degree of LV diastolic dysfunction was confirmed by prolonged early mitral deceleration time and tissue Doppler of her mitral annulus. However, her current estimated mean left atrial pressure was well within normal limits. Pulsed and continuous wave Doppler of her pulmonary trunk showed a normal peak systolic velocity against Right ventricular (RV) outflow tract obstruction. Her pulmonary artery acceleration time was markedly abbreviated consistent with a significantly elevated pulmonary vascular resistance. Guided continuous wave Doppler of her tricuspid valve allowed our estimation of her right ventricular systolic pressure (severely increased). Her inferior vena cava was upper limits of normal in size with virtually normal respiratory collapse consistent with an elevated central venous pressure of 10 - 15 mmHg at least. CONCLUSIONS: Normal left ventricular size, wall thickness and septal wall motion abnormality believed to be related to right ventricular pressure overload. Global left ventricular systolic function was retained. Normal left atrial size but Doppler findings suggest a degree of impaired LV diastolic function but currently normal estimated mean left atrial pressure. Moderately dilated right heart chambers with hyperkinetic right ventricular free wall and Doppler evidence of severe pulmonary hypertension. Normal inferior vena cava (IVC) size but virtually absent respiratory collapse consistent with elevated central venous pressure.
[2017-01-27] MEDS: WARFARIN SOD 7.5 MG TAB PO SCH (17:20)
[2017-01-27 19:41] LABS: INR 1.07
[2017-01-27] MEDS: ATORVASTATIN 20 MG TAB PO SCH (21:38)
[2017-01-27] MEDS: LEVEMIR (INSULIN DETEMIR) 1 UNITS/0.01ML SC SCH (21:44)
[2017-01-28] MEDS: HEPARIN DRIP 25,000 UNITS in APPROPRIATE DILUENT 1 EA IV SCH ×3 (04:48→17:21)
[2017-01-28 05:10] VITALS: BP 107/53
[2017-01-28 05:21] LABS: MEAN CORPUSCULAR HEMOGLOBIN 23.8 pg (27.0-33.0); MEAN CORPUSCULAR HGB CONC 29.9 g/dl (32.0-36.5); MEAN CORPUSCULAR VOLUME 79.7 fl (80.0-96.0); RED CELL DISTRIBUTION WIDTH 16.1 % (11.5-14.5); WHITE BLOOD COUNT 9.6 K/mm3 (4.0-10.0)
[2017-01-28 05:23] LABS: ANION GAP 8 MEQ/L (8-16); BLOOD UREA NITROGEN 6 MG/DL (7-18); CALCIUM LEVEL 8.3 MG/DL (8.5-10.1); CARBON DIOXIDE LEVEL 28 MEQ/L (21-32); CHLORIDE LEVEL 107 MEQ/L (98-107); CREATININE FOR GFR 0.74 MG/DL (0.55-1.02); GLOMERULAR FILTRATION RATE > 60.0 (>58); GLUCOSE, FASTING 165 MG/DL (70-105); POTASSIUM SERUM 3.4 MEQ/L (3.5-5.1); SODIUM LEVEL 143 MEQ/L (136-145)
[2017-01-28 05:27] LABS: INR 1.2
[2017-01-28] MEDS: SENOKOT S TAB PO SCH ×2 (08:31→21:00)
[2017-01-28] MEDS: SUCRALFATE 1 GM TAB PO SCH ×3 (08:31→17:19)
[2017-01-28] MEDS: PANTOPRAZOLE 40MG TAB (PROTONIX) PO SCH (08:31)
[2017-01-28] MEDS: HumaLOG INSULIN (NovoLOG) PER UNIT SC SCH ×4 (08:31→21:00)
[2017-01-28] MEDS ORDERED: POTASSIUM CHLORIDE 10 MEQ SR TABLET PO ONE (10:30)
[2017-01-28 14:00] VITALS: BP 133/79
[2017-01-28] MEDS: WARFARIN SOD 7.5 MG TAB PO SCH (17:19)
[2017-01-28] MEDS: PERCOCET 5MG/325MG TAB PO PRN ×2 (17:34→21:47)
--- NOTE | 2017-01-28 20:40 | IPN ---
DATE: 01/28/2017 Ms. Castañeda is feeling okay this morning. She was a little short of breath overnight, required more oxygen. Has been up and moving around short distances. Tolerating a diet. Has not moved her bowels. Temperature 97.6, pulse 83, respiratory rate 18, blood pressure 107/52, 94% on 8 liters high-flow cannula. INS AND OUTS: Notable for a positive fluid balance of 1,309. One bowel movement yesterday, but none thus far today. GENERAL: She is awake, appropriately interactive. Pleasantly conversant. Mucous membranes moist. Breathing symmetrical, diminished. HEAR: Regular rate and rhythm. ABDOMEN: Soft, doughy, non-tender. Midline surgical site is cleanly dressed. White cell count 9.6, hemoglobin 10.1, platelets 374. She does have stool, which is hemoccult positive. BUN 6, creatinine 0.74, potassium 3.4, which has been repleted. MY ASSESSMENT IS FOLLOWS: This is a 41-year-old with multiple medical conditions who presented with acute hypoxia secondary to pulmonary embolism. PLAN IS FOLLOWS: 1. Pulmonary embolism. Patient is pursuing Coumadin treatment. Is currently on a heparin drip. Continue current care. Previously has been on Coumadin of 7.5. INR today is 1.2 and trending upward. She does have hemoccult positive stools. These will need to be monitored. At this point, we will continue with Heparin drip of course. 2. Patient has had hypokalemia, which will be repleted. 3. Patient has drainage from a surgical and I discussed this case with Dr. Santoyo who will continue to follow her today. 4. Patient has insulin dependent diabetes. Continue insulin. 5. Patient has hypertension. Not on any blood pressure medications. 6. Patient has morbid obesity, which complicates care. I anticipate 3-7 more days of hospital stay.
[2017-01-28] MEDS: LEVEMIR (INSULIN DETEMIR) 1 UNITS/0.01ML SC SCH (21:00)
[2017-01-28] MEDS: ATORVASTATIN 20 MG TAB PO SCH (21:46)
[2017-01-28 22:00] VITALS: BP 117/71
[2017-01-29] MEDS: HEPARIN DRIP 25,000 UNITS in APPROPRIATE DILUENT 1 EA IV SCH ×2 (02:40→15:31)
[2017-01-29] MEDS: PERCOCET 5MG/325MG TAB PO PRN ×3 (02:42→20:55)
[2017-01-29 05:51] LABS: MEAN CORPUSCULAR HEMOGLOBIN 23.5 pg (27.0-33.0); MEAN CORPUSCULAR HGB CONC 29.2 g/dl (32.0-36.5); MEAN CORPUSCULAR VOLUME 80.3 fl (80.0-96.0); RED CELL DISTRIBUTION WIDTH 16.1 % (11.5-14.5); WHITE BLOOD COUNT 8.9 K/mm3 (4.0-10.0)
[2017-01-29 05:54] LABS: INR 1.45
[2017-01-29 05:56] LABS: ANION GAP 8 MEQ/L (8-16); BLOOD UREA NITROGEN 8 MG/DL (7-18); CALCIUM LEVEL 8.7 MG/DL (8.5-10.1); CARBON DIOXIDE LEVEL 26 MEQ/L (21-32); CHLORIDE LEVEL 106 MEQ/L (98-107); CREATININE FOR GFR 0.73 MG/DL (0.55-1.02); GLOMERULAR FILTRATION RATE > 60.0 (>58); GLUCOSE, FASTING 201 MG/DL (70-105); MAGNESIUM LEVEL 1.8 MG/DL (1.8-2.4); POTASSIUM SERUM 3.7 MEQ/L (3.5-5.1); SODIUM LEVEL 140 MEQ/L (136-145)
[2017-01-29 06:00] VITALS: BP 123/64
[2017-01-29] MEDS: HumaLOG INSULIN (NovoLOG) PER UNIT SC SCH ×4 (08:42→20:55)
[2017-01-29] MEDS: SUCRALFATE 1 GM TAB PO SCH ×3 (08:42→17:25)
[2017-01-29] MEDS: PANTOPRAZOLE 40MG TAB (PROTONIX) PO SCH (08:42)
[2017-01-29] MEDS: SENOKOT S TAB PO SCH ×2 (08:43→20:55)
[2017-01-29] MEDS: HEPARIN SOD (PORCINE) 5000 UNITS/ML VIAL IV PRN (15:31)
[2017-01-29] MEDS: WARFARIN SOD 7.5 MG TAB PO SCH (17:25)
[2017-01-29] MEDS: ATORVASTATIN 20 MG TAB PO SCH (20:54)
[2017-01-29] MEDS: LEVEMIR (INSULIN DETEMIR) 1 UNITS/0.01ML SC SCH (20:56)
--- NOTE | 2017-01-29 20:59 | IPN ---
DATE: 01/29/2017 SUBJECTIVE: Ms. Castañeda is feeling well today. Has no complaints of pain, chest pain, shortness of breath. Still requiring supplemental oxygen. Tolerating diet. Has been out of bed and walked out to the nurses station. OBJECTIVE: VITAL SIGNS: Temperature 96.8, pulse76, respiratory rate 16, blood pressure 123/64, 91% on eight liters. Intake and output notable for positive fluid balance 2142. She did have four bowel movements yesterday. Weight is 167 kg. Body mass index 65. GENERAL: She is awake, appropriately interactive, pleasantly conversant. LUNGS: Breathing is symmetrical but diminished. I to E ratio is 1:3. HEART: Regular rate and rhythm. Distant sounding. ABDOMEN: Soft, distended, nontender. Dr. Santoyo packed her midline wound and removed some anna. LABORATORY DATA: White cell count 8.9, hemoglobin 9.8, platelets 338 BUN 8, creatinine 0.73. ASSESSMENT: This is a 41-year-old with multiple medical conditions who presented with acute hypoxia secondary to pulmonary embolism. PLAN: 1. Pulmonary embolism. The patient is on heparin drip. Continue with Coumadin. International normalized ratio (INR) is increasing at an appropriate rate. She had had hemoccult positive stools. We will monitor her hemoglobin and hematocrit on a daily basis. At this point, I would anticipate discharge early next week. 2. The patient has continued hypoxia, still requiring a good deal of supplemental oxygen. Hopefully this will improve with time. At this point, she required more oxygen than we would be able to give her as an outpatient. We will look to wean the oxygen today as able. 3. The patient has hypokalemia which has been adequately repleted. 4. The patient has a midline surgical wound, status post ventral hernia repair, and has been followed by surgery. 5. The patient has insulin-dependent diabetes. At this point, we can probably increase her long-acting insulin. 6. The patient has hypertension which is reasonably well controlled. 7. The patient has morbid obesity which complicates care.
[2017-01-29 22:00] VITALS: BP 131/59
[2017-01-30] MEDS: HEPARIN DRIP 25,000 UNITS in APPROPRIATE DILUENT 1 EA IV SCH ×2 (02:09→13:42)
[2017-01-30] MEDS: PERCOCET 5MG/325MG TAB PO PRN ×3 (02:11→19:44)
[2017-01-30 04:11] LABS: INR 1.64; MEAN CORPUSCULAR HEMOGLOBIN 23.9 pg (27.0-33.0); MEAN CORPUSCULAR HGB CONC 30.2 g/dl (32.0-36.5); MEAN CORPUSCULAR VOLUME 79.1 fl (80.0-96.0); RED CELL DISTRIBUTION WIDTH 15.9 % (11.5-14.5); WHITE BLOOD COUNT 8.6 K/mm3 (4.0-10.0)
[2017-01-30 04:25] LABS: ANION GAP 8 MEQ/L (8-16); BLOOD UREA NITROGEN 7 MG/DL (7-18); CALCIUM LEVEL 8.1 MG/DL (8.5-10.1); CARBON DIOXIDE LEVEL 29 MEQ/L (21-32); CHLORIDE LEVEL 105 MEQ/L (98-107); CREATININE FOR GFR 0.71 MG/DL (0.55-1.02); GLOMERULAR FILTRATION RATE > 60.0 (>58); GLUCOSE, FASTING 165 MG/DL (70-105); MAGNESIUM LEVEL 1.7 MG/DL (1.8-2.4); POTASSIUM SERUM 3.4 MEQ/L (3.5-5.1); SODIUM LEVEL 142 MEQ/L (136-145)
[2017-01-30 06:00] VITALS: BP 106/62
[2017-01-30] MEDS: SENOKOT S TAB PO SCH ×2 (07:52→19:43)
[2017-01-30] MEDS: SUCRALFATE 1 GM TAB PO SCH ×3 (07:52→16:58)
[2017-01-30] MEDS: HumaLOG INSULIN (NovoLOG) PER UNIT SC SCH ×4 (07:52→20:34)
[2017-01-30] MEDS: PANTOPRAZOLE 40MG TAB (PROTONIX) PO SCH (07:52)
[2017-01-30] MEDS ORDERED: POTASSIUM CHLORIDE 10 MEQ SR TABLET PO ONE (09:00)
[2017-01-30] MEDS ORDERED: MAG SULF 1GM/100ML (MAG RUN) 1 GM in APPROPRIATE DILUENT 1 EA IV ONE (09:00)
[2017-01-30] MEDS ORDERED: SODIUM CHLORIDE NASAL 0.65% SPRAY BTL (OCEAN) PRN (09:45)
--- NOTE | 2017-01-30 10:42 | REP ---
REASON: Hypoxia. COMPARISON: 01/15/2017 FINDINGS: The superior mediastinal structures are midline. The cardiac silhouette is unremarkable in size, shape, and position. The diaphragmatic surfaces of the lungs are regular, and the costophrenic angles are clear. The pulmonary khan are clear. The imaged osseous structures are intact. IMPRESSION: There is no acute cardiopulmonary disease. No significant change. Signed by Hossein Moody DO 01/30/2017 10:55 A
[2017-01-30] MEDS: MAGNESIUM OXIDE 400 MG TAB (MAG-OX) PO SCH (12:43)
[2017-01-30 14:00] VITALS: BP 119/71
[2017-01-30] MEDS: WARFARIN SOD 7.5 MG TAB PO SCH (16:58)
[2017-01-30] MEDS: ATORVASTATIN 20 MG TAB PO SCH (19:43)
[2017-01-30] MEDS: LEVEMIR (INSULIN DETEMIR) 1 UNITS/0.01ML SC SCH (20:35)
[2017-01-30 22:00] VITALS: BP 117/67
[2017-01-31] MEDS: HEPARIN DRIP 25,000 UNITS in APPROPRIATE DILUENT 1 EA IV SCH ×2 (00:28→12:22)
[2017-01-31] MEDS: PERCOCET 5MG/325MG TAB PO PRN ×2 (05:13→18:04)
[2017-01-31 06:00] VITALS: BP 114/55
[2017-01-31 07:06] LABS: MEAN CORPUSCULAR HEMOGLOBIN 22.9 pg (27.0-33.0); MEAN CORPUSCULAR HGB CONC 28.9 g/dl (32.0-36.5); MEAN CORPUSCULAR VOLUME 79.4 fl (80.0-96.0); RED CELL DISTRIBUTION WIDTH 15.9 % (11.5-14.5); WHITE BLOOD COUNT 8.1 K/mm3 (4.0-10.0)
[2017-01-31 07:21] LABS: INR 1.88
[2017-01-31 07:24] LABS: ANION GAP 8 MEQ/L (8-16); BLOOD UREA NITROGEN 10 MG/DL (7-18); CALCIUM LEVEL 8.8 MG/DL (8.5-10.1); CARBON DIOXIDE LEVEL 28 MEQ/L (21-32); CHLORIDE LEVEL 104 MEQ/L (98-107); CREATININE FOR GFR 0.74 MG/DL (0.55-1.02); GLOMERULAR FILTRATION RATE > 60.0 (>58); GLUCOSE, FASTING 229 MG/DL (70-105); MAGNESIUM LEVEL 1.8 MG/DL (1.8-2.4); POTASSIUM SERUM 3.8 MEQ/L (3.5-5.1); SODIUM LEVEL 140 MEQ/L (136-145)
[2017-01-31] MEDS: SUCRALFATE 1 GM TAB PO SCH ×3 (07:56→18:02)
[2017-01-31] MEDS: SENOKOT S TAB PO SCH ×3 (07:56→20:33)
[2017-01-31] MEDS: PANTOPRAZOLE 40MG TAB (PROTONIX) PO SCH (07:56)
[2017-01-31] MEDS: HumaLOG INSULIN (NovoLOG) PER UNIT SC SCH ×4 (07:57→21:00)
[2017-01-31] MEDS: MAGNESIUM OXIDE 400 MG TAB (MAG-OX) PO SCH (07:57)
--- NOTE | 2017-01-31 09:36 | IPN ---
DATE OF VISIT: 01/30/2017 MS. Castañeda is feeling well today, no complaints of pain, chest pain. She is still short of breath and requires oxygen, especially when ambulating. She does become short of breath without oxygen. PHYSICAL EXAMINATION: VITAL SIGNS: Temperature 96.2, pulse 67, respiratory rate 20, blood pressure 106/62, 97% on Venturi mask at 50%. Input and output notable for positive fluid balance of 2150, two bowel movements yesterday. Weight is 167.3 kg with a body mass index of 65.3. She is awake, appropriately interactive and pleasantly conversant. LUNGS: Breathing is symmetrical but diminished, perhaps somewhat more in the right base than in the left base. No wheezes, rales or rhonchi. HEART: Regular rate and rhythm, no tachycardic. ABDOMEN: Soft, doughy, nontender. Abdomen is cleanly dressed. LABORATORY DATA: White cell count 8.6, hemoglobin 9.3, platelets 305. BUN 7, creatinine 0.7, magnesium 1.7. Potassium 3.4, INR 1.6. Wound culture came back with few growth of Staphylococcus, Streptococcus and Corynebacterium. ASSESSMENT: 41-year-old female with multiple medical conditions who presents with acute hypoxia secondary to pulmonary embolism. PLAN: 1. Pulmonary embolism. The patient continues on heparin drip and Coumadin at her previous dosing. INR is trending upward nicely. Continue to anticipate discharge early next week depending on her level of hypoxia. 2. Patient has acute hypoxia. Will wean oxygen as able. I have encouraged her to get out of bed and ambulate in the hallway with assistance three times a day. She will likely need oxygen at the time of discharge. 3. The patient is hypokalemia and hypomagnesemia which will need to be repleted. 4. The patient has midline surgical wounds status post ventral hernia repair. She has what is described as "few" growth of multiple bacteria. At this point she has no white cell count, no fever, no pain and the wound is packed and dressed. Will avoid antibiotic use at this point. 5. The patient has insulin dependent diabetes. Fingerstick will most likely be better controlled. Will again increase her basal insulin. 6. Patient has hypotension which is reasonably controlled. 7. The patient has morbid obesity which complicates care.
[2017-01-31 14:00] VITALS: BP 135/63
[2017-01-31 16:15] LABS: INR 1.89
[2017-01-31] MEDS: HEPARIN SOD (PORCINE) 5000 UNITS/ML VIAL IV PRN (17:22)
[2017-01-31] MEDS: WARFARIN SOD 7.5 MG TAB PO SCH (17:23)
--- NOTE | 2017-01-31 17:32 | IPN ---
DATE: 01/31/2017 Ms. Castañeda is feeling well today and has no complaints of pain, chest pain, shortness of breath, tolerating a diet. Temperature is 96.9, pulse 77, respiratory rate 20, blood pressure 114/55, 94% on 4 liters. She was successfully weaned down to 4 liters yesterday. Intake and output notable for a positive fluid balance of 2090 with a weight of 165.7 kg, which represents a decrease in her weight. Three bowel movements yesterday. Awake, appropriately interactive, pleasantly conversant. Breathing is symmetrical, diminished throughout. I:E ratio is 1:3. No wheezes, rales or rhonchi. No accessory muscle use. Heart: Regular rate and rhythm. Abdomen: Soft, doughy, nontender, distended. White cell count 8.1, hemoglobin 10.2 and platelets 283, BUN is 10, creatinine 0.7. INR is 1.88, trending upward. May very well be therapeutic tomorrow. ASSESSMENT: This is a 41-year-old with multiple medical conditions who presents with acute hypoxia secondary to pulmonary embolism. PLAN: 1. Pulmonary embolism. The patient continues on a heparin drip, which has been at a high rate somewhat variable in response to PTT. She is on Coumadin at a dose that was her previous home dose, and I believe that will be her therapeutic dose at the time of discharge. Would recommend 24 hours of overlap coverage with heparin. 2. The patient has continuing acute hypoxia. Will likely need home oxygen - I am hoping at 2 liters via nasal cannula upon discharge. 3. The patient has hypokalemia and hypomagnesemia, which has resolved. 4. The patient has a midline surgical wound status post ventral hernia repair and has been seen by Dr. Santoyo. Her previous surgeon is Dr. Sharma who has been out of town during her course of this hospital stay. 5. The patient has insulin-dependent diabetes, which is reasonably better controlled. 6. The patient has hypertension, which is reasonably controlled. 7. The patient has morbid obesity, which complicates care.
[2017-01-31] MEDS: ATORVASTATIN 20 MG TAB PO SCH (21:18)
[2017-01-31] MEDS: LEVEMIR (INSULIN DETEMIR) 1 UNITS/0.01ML SC SCH (21:18)
[2017-01-31 22:00] VITALS: BP 143/65
[2017-01-31 23:50] LABS: INR 1.98
[2017-02-01] MEDS: PERCOCET 5MG/325MG TAB PO PRN ×3 (00:02→20:35)
[2017-02-01] MEDS: HEPARIN DRIP 25,000 UNITS in APPROPRIATE DILUENT 1 EA IV SCH (00:39)
[2017-02-01 06:00] VITALS: BP 132/67
[2017-02-01 07:05] LABS: MEAN CORPUSCULAR HEMOGLOBIN 23.1 pg (27.0-33.0); MEAN CORPUSCULAR HGB CONC 29.4 g/dl (32.0-36.5); MEAN CORPUSCULAR VOLUME 78.6 fl (80.0-96.0); RED CELL DISTRIBUTION WIDTH 15.8 % (11.5-14.5); WHITE BLOOD COUNT 8.3 K/mm3 (4.0-10.0)
[2017-02-01 07:09] LABS: INR 1.99
[2017-02-01 07:35] LABS: ANION GAP 7 MEQ/L (8-16); BLOOD UREA NITROGEN 8 MG/DL (7-18); CALCIUM LEVEL 8.6 MG/DL (8.5-10.1); CARBON DIOXIDE LEVEL 31 MEQ/L (21-32); CHLORIDE LEVEL 103 MEQ/L (98-107); CREATININE FOR GFR 0.61 MG/DL (0.55-1.02); GLOMERULAR FILTRATION RATE > 60.0 (>58); GLUCOSE, FASTING 166 MG/DL (70-105); MAGNESIUM LEVEL 1.8 MG/DL (1.8-2.4); POTASSIUM SERUM 3.7 MEQ/L (3.5-5.1); SODIUM LEVEL 141 MEQ/L (136-145)
[2017-02-01] MEDS: MAGNESIUM OXIDE 400 MG TAB (MAG-OX) PO SCH (07:51)
[2017-02-01] MEDS: HumaLOG INSULIN (NovoLOG) PER UNIT SC SCH ×4 (07:51→20:34)
[2017-02-01] MEDS: SUCRALFATE 1 GM TAB PO SCH ×3 (07:51→17:14)
[2017-02-01] MEDS: PANTOPRAZOLE 40MG TAB (PROTONIX) PO SCH (07:51)
[2017-02-01] MEDS: SENOKOT S TAB PO SCH ×2 (08:18→20:33)
[2017-02-01] MEDS: HEPARIN SOD (PORCINE) 5000 UNITS/ML VIAL IV PRN (08:52)
--- NOTE | 2017-02-01 10:25 | IPNPDOC ---
Subjective Date Seen The patient was seen on 02/01/17. Subjective Chief Complaint/HPI The patient is a 41-year-old female admitted with a reason for visit of Pulminary Embolisim. Events since last encounter no complaints this am. Objective Physical Examination General Exam: Positive: Alert, No Acute Distress Eye Exam: Positive: Conjunctiva & lids normal, EOMI, PERRLA, Negative: Sclera icteric ENT Exam: Positive: Atraumatic, Mucous membr. moist/pink, Pharynx Normal Neck Exam: Positive: Supple, Negative: JVD, thyromegaly Chest Exam: Positive: Clear to auscultation, Normal air movement Heart Exam: Positive: Normal S1, Normal S2, Rate Normal, Regular Rhythm, Negative: Murmurs, Rubs Abdomen Exam: Positive: Normal bowel sounds, Soft, Negative: Hepatospenomegaly, Tenderness Extremity Exam: Positive: Normal pulses, Negative: Clubbing, Cyanosis, Edema Assessment /Plan Problems (1) Pulmonary embolism Status: Acute Problem Text: continue coumadin , stop heparin gtt (2) Hypoxia Status: Acute Problem Text: will need to go home with oxygen (3) History of DVT (deep vein thrombosis) Status: Chronic Problem Text: upper extremity (4) Morbid obesity Status: Chronic (5) Incarcerated ventral hernia Status: Resolved Problem Text: operated on january 06. Had strangulated internal hernias with small bowel obstruction and perforation. still has midline anna plan to be removed tomorrow. (6) Hypertension Status: Chronic (7) Diabetes Status: Chronic Plan/VTE VTE Prophylaxis Ordered?: Yes VS, I&O, 24H, Fishbone Vital Signs/I&O Vital Signs Date Time Temp Pulse Resp B/P Pulse Ox O2 Delivery O2 Flow Rate FiO2 02/01/17 06:00 97.1 69 18 132/67 97 Nasal Cannula 4.0 01/27/17 04:00 50 I&O- Last 24 Hours up to 6 AM 02/01/17 05:59 Intake Total 1980 ml Output Total 600 ml Balance 1380 ml Laboratory Data 24H LABS Laboratory Tests 2 01/31/17 11:33: Bedside Glucose (Misc Panel) 236H 01/31/17 15:44: Activated Partial Thromboplast Time 60.4H, Prothromb Time International Ratio 1.89, Prothrombin Time 21.8H 01/31/17 16:27: Bedside Glucose (Misc Panel) 194H 01/31/17 21:14: Bedside Glucose (Misc Panel) 207H 01/31/17 23:33: Activated Partial Thromboplast Time 98.4H, Prothromb Time International Ratio 1.98, Prothrombin Time 22.6H 02/01/17 06:33: Activated Partial Thromboplast Time 53.4H, Prothromb Time International Ratio 1.99, Prothrombin Time 22.7H, Anion Gap 7L, Blood Urea Nitrogen 8, Creatinine 0.61, Sodium Level 141, Potassium Level 3.7, Chloride Level 103, Carbon Dioxide Level 31, Calcium Level 8.6, Glomerular Filtration Rate > 60.0, Magnesium Level 1.8 CBC/BMP Laboratory Tests 02/01/17 06:33 Calcium Level 8.6, Red Blood Count 4.12, Mean Corpuscular Volume 78.6 L, Mean Corpuscular Hemoglobin 23.1 L, Mean Corpuscular Hemoglobin Concent 29.4 L, Red Cell Distribution Width 15.8 H Microbiology Microbiology 01/26/17 Blood Culture - Final, Complete NO GROWTH AFTER 5 DAYS 01/26/17 Blood Culture - Final, Complete NO GROWTH AFTER 5 DAYS 01/30/17 Stool Occult Blood (NICK) - Final, Complete 01/28/17 Stool Occult Blood (NICK) - Final, Complete 01/27/17 Stool Occult Blood (NICK) - Final, Complete 01/26/17 Wound Culture - Final, Complete Staphylococcus Sp Coag Neg Strep Constellatus Ssp Constel Corynebacterium Species APRIL DARDEN MD Feb 01, 2017 10:24
[2017-02-01 14:00] VITALS: BP 130/81
[2017-02-01] MEDS ORDERED: WARFARIN SOD 10 MG TAB PO SCH (17:00)
[2017-02-01] MEDS: ATORVASTATIN 20 MG TAB PO SCH (20:33)
[2017-02-01] MEDS: LEVEMIR (INSULIN DETEMIR) 1 UNITS/0.01ML SC SCH (20:33)
[2017-02-01 22:00] VITALS: BP 121/79
[2017-02-02 06:00] VITALS: BP 120/78
[2017-02-02 07:49] LABS: MEAN CORPUSCULAR HEMOGLOBIN 23.7 pg (27.0-33.0); MEAN CORPUSCULAR HGB CONC 30.2 g/dl (32.0-36.5); MEAN CORPUSCULAR VOLUME 78.2 fl (80.0-96.0); RED CELL DISTRIBUTION WIDTH 15.7 % (11.5-14.5); WHITE BLOOD COUNT 8.8 K/mm3 (4.0-10.0)
[2017-02-02 08:17] LABS: ANION GAP 7 MEQ/L (8-16); BLOOD UREA NITROGEN 9 MG/DL (7-18); CALCIUM LEVEL 8.7 MG/DL (8.5-10.1); CARBON DIOXIDE LEVEL 31 MEQ/L (21-32); CHLORIDE LEVEL 102 MEQ/L (98-107); CREATININE FOR GFR 0.66 MG/DL (0.55-1.02); GLOMERULAR FILTRATION RATE > 60.0 (>58); GLUCOSE, FASTING 162 MG/DL (70-105); MAGNESIUM LEVEL 1.6 MG/DL (1.8-2.4); POTASSIUM SERUM 3.7 MEQ/L (3.5-5.1); SODIUM LEVEL 140 MEQ/L (136-145)
[2017-02-02] MEDS: SENOKOT S TAB PO SCH (09:00)
[2017-02-02] MEDS: HumaLOG INSULIN (NovoLOG) PER UNIT SC SCH ×2 (09:01→12:27)
[2017-02-02] MEDS: MAGNESIUM OXIDE 400 MG TAB (MAG-OX) PO SCH (09:01)
[2017-02-02] MEDS: PANTOPRAZOLE 40MG TAB (PROTONIX) PO SCH (09:01)
[2017-02-02] MEDS: SUCRALFATE 1 GM TAB PO SCH ×2 (09:01→12:27)
[2017-02-02] MEDS ORDERED: PERCOCET PO (10:31)
[2017-02-02] MEDS ORDERED: MAG400TA PO (10:31)
[2017-02-02] MEDS ORDERED: ATOR40TA PO (10:31)
[2017-02-02 14:00] VITALS: BP 161/82
--- NOTE | 2017-02-03 09:30 | DSES ---
DATE OF ADMISSION: 01/26/2017 DATE OF DISCHARGE: 02/02/2017 PRIMARY CARE PROVIDER: Dr. Greenfield at the resident clinic. SURGEON: Dr. Sharma. DISCHARGE DIAGNOSES: Pulmonary embolism. Hypoxia discharged with home oxygen. History of deep venous thrombosis (DVT) of the upper extremity. Morbid obesity. Recent history of incarcerated abdominal hernia operated on January 06 with small bowel obstruction and perforation. Healing midline surgical wound with a small region of discharge requiring packing and daily dressing. Hypertension. Diabetes. Gastroesophageal reflux disease (GERD). Dyslipidemia. Morbid obesity. Iron deficiency anemia. DISCHARGE MEDICATIONS: - atorvastatin 40 mg daily - magnesium oxide 400 mg daily - oxycodone/acetaminophen 5/325 one tablet by mouth three times daily as needed pain - ascorbic acid 500 mg by mouth daily - ferrous sulfate 325 mg by mouth daily - gabapentin 300 mg by mouth three times daily - insulin Levemir 60 units at bedtime - lisinopril 10 mg daily - metformin 1000 mg by mouth twice daily - omeprazole 20 mg by mouth twice daily - sucralfate 1 gram by mouth before meals and at bedtime - Coumadin 7.5 mg by mouth daily - home oxygen HOSPITAL COURSE: This is a 41-year-old female presented to the hospital with shortness of breath and dyspnea on exertion. Patient had history of upper extremity deep venous thrombosis (DVT) noncompliant with Coumadin. Last Coumadin intake was last year. Patient recently was admitted in the hospital for incarcerated abdominal hernia and was found to have strangulated internal hernias with perforation of bowel. Patient underwent laparotomy and bowel resection on 01/06/2017 and was discharged home and was instructed to continue her Coumadin which was restarted in the hospital, however, patient did not take her Coumadin for several days after discharge and only started it 3 days prior to admission. On admission, patient was found to have pulmonary embolism and acute respiratory failure with hypoxia requiring 40% O2 by Venturi mask to maintain oxygenation. Patient's Coumadin was continued. Her INR started improving and patient was also placed on heparin infusion. Gradually patient's oxygenation improved and patient was successfully weaned to high flow oxygen and then to nasal cannula. On the day of discharge, patient still continued to remain hypoxic with drop in oxygen saturation to about 85% after ambulation so the patient was discharged with home oxygen. Patient had two therapeutic INR. Patient's anna from her abdominal wound were removed. There was an area which has not healed yet and was healing by secondary intention which required packing and dressing daily. Patient has been set up with home care services. At present, patient is functioning close to her baseline with stable vitals and is going to be discharged home. Patient was transferred from [facility] where she initially presented with chief complaint of dyspnea on exertion and overall shortness of breath and was found to have pulmonary embolism. PHYSICAL EXAMINATION: Vital signs: Temperature 97.8, pulse 91, respiratory rate 18, blood pressure 161/82, pulse oximetry 92% on room air at rest, 86% on ambulation which improved to 92% with 2 liters. General: Patient awake, alert, oriented, morbidly obese, sitting up in chair in no acute distress. HEENT: Normocephalic, atraumatic. Moist mucous membranes. Anicteric eyes. Chest: Clear to auscultation but overall poor distant breath sounds. Cardiovascular: S1, S2, regular. No rub, murmur or gallop. Abdomen: Soft with surgical wound present. Bowel sounds normal. Extremities: Trace edema. LABORATORY DATA: WBC 8.8, hemoglobin 10.4, platelets 273. Sodium 140, potassium 3.7, chloride 102, bicarbonate 31, BUN 9, creatinine 0.6. Glucose 162, calcium 8.7, magnesium 1.6 being replaced. INR 2. DISPOSITION: Patient is discharged home in stable condition with home oxygen. DISCHARGE INSTRUCTIONS: Patient to followup with primary care provider in 1-2 weeks. Patient to followup with Dr. Sharma as instructed. Carbohydrate consistent diet. Activity as tolerated. INR check in 2 days time.
== END 2017-02-02 15:04 | disposition home health service (06) | DRG 134 ==
LOC: M ICU 19:05 → M MSPAV 01-27 10:44
PROVIDERS: ADMIT Internal Medicine; ATTEND Internal Medicine Nephrology
DX: I26.99 Other pulmonary embolism without acute cor pulmonale (principal); I10 Essential (primary) hypertension; Z68.44 Body mass index [BMI] 60.0-69.9, adult; E83.42 Hypomagnesemia; E11.9 Type 2 diabetes mellitus without complications; D50.9 Iron deficiency anemia, unspecified; E66.01 Morbid (severe) obesity due to excess calories; E78.5 Hyperlipidemia, unspecified; E87.6 Hypokalemia; R09.02 Hypoxemia; K21.9 Gastro-esophageal reflux disease without esophagitis; Z79.4 Long term (current) use of insulin; Z79.84 Long term (current) use of oral hypoglycemic drugs; Z91.14 Patient's other noncompliance with medication regimen; Z87.891 Personal history of nicotine dependence; Z79.899 Other long term (current) drug therapy

== ENCOUNTER → 2017-02-04 | Outpatient (REF) | payer OTHER ==
[~2017-02-04] MED LIST changes: +ATOR1TAB18 PO; +ATOR40TA PO; +BASA100I SC; +CIPR500T3 PO; +FERR325T PO; +GABA-282 PO; +HUMA100I5 SC; +MAG400TA PO; +METR500T10 PO; +OMEP20TA PO; +PERCOCET PO; +VITA-130 PO; +WARF-21 PO
[2017-02-04 13:03] LABS: INR 3.51
== END ==
LOC: M SHH 12:18
PROVIDERS: ATTEND Hospitalist
DX: I26.99 Other pulmonary embolism without acute cor pulmonale (principal)

== ENCOUNTER 2017-02-08 23:21 | Emergency (ER) | payer OTHER ==
[~2017-02-08] VITALS: Ht 160 cm; Wt 163.3 kg
[2017-02-08 23:22] VITALS: BP 125/69
[2017-02-08 23:55] LABS: MEAN CORPUSCULAR HEMOGLOBIN 23.8 pg (27.0-33.0); MEAN CORPUSCULAR HGB CONC 30.7 g/dl (32.0-36.5); MEAN CORPUSCULAR VOLUME 77.6 fl (80.0-96.0); RED CELL DISTRIBUTION WIDTH 16.7 % (11.5-14.5)
[2017-02-09 00:21] LABS: ANION GAP 12 MEQ/L (8-16); BLOOD UREA NITROGEN 6 MG/DL (7-18); CALCIUM LEVEL 8.7 MG/DL (8.5-10.1); CARBON DIOXIDE LEVEL 27 MEQ/L (21-32); CHLORIDE LEVEL 101 MEQ/L (98-107); CREATININE FOR GFR 0.69 MG/DL (0.55-1.02); GLOMERULAR FILTRATION RATE > 60.0 (>58); GLUCOSE, FASTING 229 MG/DL (70-105); SODIUM LEVEL 140 MEQ/L (136-145)
[2017-02-09 00:28] LABS: INR 9.94
[2017-02-09] MEDS ORDERED: POTASSIUM CHLORIDE 10 MEQ SR TABLET PO ONE (00:30)
[2017-02-09] MEDS ORDERED: POTASSIUM CHLORIDE 10 MEQ SR TABLET As Ordered ONE (00:31)
--- NOTE | 2017-02-09 11:55 | ED PDOC ---
Post-Departure Follow-Up This record was completely or partially completed on paper due to EMR downtime. Please see scanned paper chart. Opal Elias MD, Sarah MD Feb 09, 2017 11:55
== END 2017-02-09 00:47 | disposition home or self-care (01) ==
LOC: M ED 23:50
DX: R79.1 Abnormal coagulation profile (principal); I10 Essential (primary) hypertension; E11.9 Type 2 diabetes mellitus without complications; E78.00 Pure hypercholesterolemia, unspecified; Z87.891 Personal history of nicotine dependence; Z79.84 Long term (current) use of oral hypoglycemic drugs; Z79.899 Other long term (current) drug therapy; Z79.4 Long term (current) use of insulin; Z79.01 Long term (current) use of anticoagulants; Z88.5 Allergy status to narcotic agent

== ENCOUNTER 2017-02-12 21:21 | Emergency (ER) | payer OTHER ==
[~2017-02-12] VITALS: Ht 160 cm; Wt 161.9 kg
[2017-02-12 21:22] VITALS: BP 138/61
[2017-02-12 21:56] LABS: INR 1.91
[2017-02-12] MEDS ORDERED: ZOFR4TAB3 PO (22:23)
[2017-02-12] MEDS ORDERED: KEFL500C7 PO (22:23)
[2017-02-12] MEDS ORDERED: CEPHALEXIN 500 MG CAP PO ONE (22:30)
[2017-02-12] MEDS ORDERED: ONDANSETRON 4 MG ORAL DISINTEGRATING TAB (S0181) PO ONE (22:30)
== END 2017-02-12 22:44 | disposition home or self-care (01) ==
LOC: M ED 22:40
DX: L03.311 Cellulitis of abdominal wall (principal); Z51.81 Encounter for therapeutic drug level monitoring; Z79.01 Long term (current) use of anticoagulants; Z79.4 Long term (current) use of insulin; Z79.899 Other long term (current) drug therapy; E66.9 Obesity, unspecified; Z88.5 Allergy status to narcotic agent

== ENCOUNTER 2017-02-14 18:35 | Inpatient (IN) | payer OTHER ==
[~2017-02-14] VITALS: Ht 160 cm; Wt 174.8 kg
[~2017-02-14 18:35] MED LIST changes: +KEFL500C7 PO; +ZOFR4TAB3 PO
[2017-02-14] MEDS ORDERED: D5W/LR 1,000 ML IV SCH (20:20)
[2017-02-14] MEDS ORDERED: GLUCOSE 4 GM CHEW TABLET PO PRN (20:30)
[2017-02-14] MEDS ORDERED: HYDROmorphone HCL 2 MG/ML 1ML VIAL (J1170) IV PRN (20:30)
[2017-02-14] MEDS ORDERED: GLUCAGON FOR INJ 1 MG VIAL (J1610) SC PRN (20:30)
[2017-02-14] MEDS ORDERED: HYDROmorphone HCL 1 MG/ML SYRINGE (J1170) IV PRN (20:30)
[2017-02-14] MEDS ORDERED: PROMETHAZINE INJ 25 MG/ML VIAL (J2550) IV PRN (20:30)
[2017-02-14] MEDS ORDERED: DEXTROSE 50% 50 ML SYRINGE IV PRN (20:30)
[2017-02-14] MEDS ORDERED: IPRATROPIUM 0.5MG/ALBUTEROL 2.5MG INH SOL UD 3ML (DUONEB)(J7620) NEB PRN (20:30)
[2017-02-14 20:36] LABS: INR 2.5
[2017-02-14] MEDS ORDERED: ATOR40TA PO (20:46)
[2017-02-14 20:48] LABS: MEAN CORPUSCULAR HEMOGLOBIN 23.9 pg (27.0-33.0); MEAN CORPUSCULAR HGB CONC 30.3 g/dl (32.0-36.5); MEAN CORPUSCULAR VOLUME 78.9 fl (80.0-96.0); PLATELET COUNT, AUTOMATED 479 k/mm3 (150-450); WHITE BLOOD COUNT 18.8 K/mm3 (4.0-10.0)
[2017-02-14] MEDS ORDERED: BASA100I SC (20:48)
[2017-02-14] MEDS ORDERED: ONDA4TAB6 PO (20:48)
[2017-02-14] MEDS ORDERED: OXYC1TAB23 PO (20:48)
[2017-02-14] MEDS ORDERED: MAGN500T5 PO (20:49)
[2017-02-14 20:54] LABS: ALBUMIN 2.3 GM/DL (3.2-5.2); ALBUMIN/GLOBULIN RATIO 0.53 (1.00-1.93); BILIRUBIN,DIRECT 0.6 MG/DL (0.0-0.2); BILIRUBIN,TOTAL 1.9 MG/DL (0.2-1.0); CALCIUM LEVEL 7.4 MG/DL (8.5-10.1); CREATININE FOR GFR 2.06 MG/DL (0.55-1.02); TOTAL PROTEIN 6.6 GM/DL (6.4-8.2)
[2017-02-14 21:04] LABS: POTASSIUM SERUM 2.7 MEQ/L (3.5-5.1)
[2017-02-14 21:22] LABS: ANISOCYTOSIS 1+; HYPOCHROMASIA 2+; MICROCYTOSIS 1+
--- NOTE | 2017-02-14 21:50 | HPE ---
DATE OF ADMISSION: 02/14/2017 PRINCIPAL DIAGNOSES: Abdominal pain, cellulitis of the abdominal wall, and elevated white count. HISTORY OF PRESENT ILLNESS: The patient is a 41-year-old morbidly obese female who developed an incarcerated/strangulated small bowel approximately a month and half ago and was eventually discharged home on 01/18/2017, after being admitted for a bowel obstruction which was repaired with a small bowel resection. Postoperatively she developed a pulmonary embolism a week later and then had a significantly elevated INR about a week ago and during that time she has had followup with Dr. Sharma who saw her, had not been really developing any significant erythema of the wall prior to his visit, although had some minimal drainage from her midline incision and had some minimal skin breakdown which was treated with dressing changes. She then went to the emergency room on 02/12/2017, for cellulitis of the abdominal wall that seemed to abruptly start with some increasing pain at that time that has been persistent on the right side, right lower quadrant of her abdomen in her hernia that she has. The cellulitis was seen and was started on antibiotics at this time with Kefzol. She noticed that the redness has not gotten any worse but she was visiting her family up in [place] and they felt she should go the emergency room. She was seen in the emergency room and was transferred here for a CT scan of the abdomen and pelvis and further evaluation for this cellulitis of the abdominal wall and elevated white count. The patient has had some nausea without vomiting. Has had some diarrhea ever since her operation. Has had no fevers or chills prior to her admission but here in the emergency room she definitely had some chills. Her white count here is 18.8. PAST MEDICAL HISTORY: Significant for those listed above as well as morbid obesity, diabetes mellitus, laparoscopic cholecystectomy, hernia repair in 2000, ventral hernia recurrence, breast biopsy, tubal ligation, section, pulmonary emboli, dyslipidemia, gastroesophageal reflux disease, history of left upper extremity deep venous thrombosis (DVT). MEDICATIONS: Include the following: - vitamin C - iron - gabapentin - lisinopril - metformin - omeprazole - Carafate - Coumadin - Protonix - Lipitor - Prinivil - magnesium oxide - Neurontin - insulin PHYSICAL EXAMINATION: Reveals a morbidly obese white female who looks stated age. HEENT is unremarkable. Neck supple without adenopathy. Lungs are diminished bilaterally, although I do feel that this is mostly secondary to her morbid obesity with BMI of 63. Heart is regular. Abdomen is obese with a very large ventral hernia in the right lower quadrant with some tenderness to it as well as tightly distended in this area. She has a midline incision with multiple sinus tracts present, although no significant cellulitis is appreciated in this area, the cellulitis is in the right lower quadrant next to the hernia itself. Extremities are edematous, but warm and well-perfused. IMPRESSION AND PLAN: The patient has issues as the followin. Cellulitis of the abdominal wall and there is some question whether there is an air-fluid level on the right lower quadrant and I do feel that better CT scan is necessary but probably a CT scan guided drainage of a possible/probable abscess in the right lower quadrant is warranted. If they do the CT scan and obviously they do not see an abscess then continued treatment with antibiotics for her cellulitis is warranted. 2. Abdominal pain. This is probably secondary to the edema in the abdominal wall that was seen on the CT scan, probably related to the cellulitis and may be even related to an abscess. Continuing with her on antibiotics at this point are warranted and specifically if there is an abscess that is drainable we may be able to get some microbiology to better narrow down the antibiotics necessary for her. Will just keep her on a clear liquid diet for now until we perform her followup CT scan and then thereafter if she does well with either drainage procedure or if she does not have any significant drainage procedure performed, will advance her diet to a regular diet. We will hold her anticoagulation for now given that her INR is elevated and if she has a procedure we will keep this off for 24-48 hours, but consider restarting it relatively soon thereafter.
[2017-02-14] MEDS ORDERED: ERTAPENEM SODIUM 1 GM in NS MINI-BAG PLUS 50 ML IV SCH (22:00)
[2017-02-14 22:10] VITALS: BP 121/57
[2017-02-14] MEDS: GABAPENTIN 300 MG CAP PO SCH (22:43)
[2017-02-14] MEDS: SUCRALFATE SUSP 1GM/10ML UD PO SCH (22:43)
[2017-02-14] MEDS: ERTAPENEM SODIUM 1 GM in NS MINI-BAG PLUS 50 ML IV SCH (22:44)
[2017-02-14] MEDS: HumaLOG INSULIN (NovoLOG) PER UNIT SC SCH (22:44)
[2017-02-14] MEDS: PIPERACILLIN/TAZOBACTAM SOD 3.375 GM in D5W MINI-BAG PLUS 50 ML IV SCH (22:45)
[2017-02-14] MEDS: ONDANSETRON 4MG/2ML VIAL (J2405) IV PRN (22:52)
--- NOTE | 2017-02-14 23:18 | REP ---
READING, OUTSIDE EXAM: 02/14/2017. Clinical history: Abdominal pain. Post surgery with bowel resection. Known large abdominal hernia. Comparison: Outside CT 01/26/2017, our CT 01/14/2017. Images from noncontrast CT abdomen and pelvis 02/14/2017 at 02:32 PM from [facility] in [place], [place]. Findings: CT abdomen and pelvis: Lung bases show minor dependent atelectasis without effusion or infiltrate. The heart size mildly prominent. No pericardial thickening or effusion. Small hiatal hernia suggested. Hepatomegaly. The liver showing vertical diameter of 22.7 cm in midclavicular line on the right lobe. Clips from prior cholecystectomy. No biliary dilatation. No focal splenic lesion with the spleen borderline up to 13 cm vertical height. The adrenal glands without mass. Kidneys without hydronephrosis or stone. The aorta has atherosclerotic calcifications without aneurysm. No periaortic adenopathy. There is a very large right abdominal wall hernia between the right rectus and oblique muscles with small bowel loops within it. There is an air-fluid level. It does not appear to be definite bowel, but because of the extreme body habitus abutting the CT gantry, a fair portion of this hernia and air fluid level within it are not visualized, limiting the examination. The bowel loops are not abnormally dilated entering or exiting the hernia. There are inflammatory changes in the fat within that hernia. There are some surgical clips about the hernia and bowel loops. Edema of the skin suggests some cellulitis. No generalized ascites. Sigmoid colon extends up into the hernia and then courses inferiorly back towards the right side with transverse colon and right colon with hepatic flexure outside of that hernia. There are least two air-fluid levels in the hernia. Some anastomotic sutures are seen in the bowel loop within the hernia. Its origin difficult to discern. Lung window review of all CT slices do show the air-fluid levels. I do see evidence of abscess, but I cannot completely define it. The pelvis shows uterus anteverted. The left ovary is enlarged in the interval suggesting ovarian cyst or hemorrhagic ovarian cyst up to 5.[address] on 01/14/2017 showed that ovary with maximum diameter 3 cm. Smaller normal sized right ovary. No other significant findings or interval change. There were some small air bubbles in the abdominal incision in the superficial fat layer, which were not present on the CT 01/26/2017 and suggesting an open wound or draining wound. Impression: 1. 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 These findings were discussed in detail at the workstation with the consulting surgeon, Dr. Barrera. 2. Cellulitis and draining or open midline incision suggested. 3. Left ovarian cyst 6 cm left ovary. It was 3 cm 1 month ago. Signed by Kelvin Staples MD 02/15/2017 12:37 P
[2017-02-15] VITALS (7 sets, daily range): BP systolic 102–139; BP diastolic 51–73
[2017-02-15] MEDS: NORCO, ANEXSIA 5/325MG TABLET (HYDROcodone/ACETAMINOPHEN) PO PRN ×3 (00:53→15:11)
[2017-02-15] MEDS: IPRATROPIUM 0.5MG/ALBUTEROL 2.5MG INH SOL UD 3ML (DUONEB)(J7620) NEB SCH ×4 (01:16→19:33)
[2017-02-15] MEDS ORDERED: POTASSIUM CHLORIDE 10 MEQ SR TABLET PO ONE ×3 (04:15→10:00)
[2017-02-15] MEDS: PIPERACILLIN/TAZOBACTAM SOD 3.375 GM in D5W MINI-BAG PLUS 50 ML IV SCH ×4 (04:23→22:22)
[2017-02-15] MEDS: PERCOCET 5MG/325MG TAB PO PRN ×3 (04:25→20:59)
[2017-02-15 07:16] LABS: MEAN CORPUSCULAR HEMOGLOBIN 24.5 pg (27.0-33.0); MEAN CORPUSCULAR HGB CONC 31.2 g/dl (32.0-36.5); MEAN CORPUSCULAR VOLUME 78.6 fl (80.0-96.0)
[2017-02-15 07:22] LABS: INR 3.07
[2017-02-15 07:40] LABS: CALCIUM LEVEL 7.3 MG/DL (8.5-10.1); CREATININE FOR GFR 1.41 MG/DL (0.55-1.02); GLOMERULAR FILTRATION RATE 43.3 (>58); POTASSIUM SERUM 2.5 MEQ/L (3.5-5.1)
[2017-02-15] MEDS: SUCRALFATE SUSP 1GM/10ML UD PO SCH ×4 (08:20→20:58)
[2017-02-15] MEDS: FERROUS SULFATE 325MG TAB PO SCH (08:21)
[2017-02-15] MEDS: MAGNESIUM OXIDE 400 MG TAB (MAG-OX) PO SCH (08:21)
[2017-02-15] MEDS: PANTOPRAZOLE 40MG TAB (PROTONIX) PO SCH (08:21)
[2017-02-15] MEDS: GABAPENTIN 300 MG CAP PO SCH ×3 (08:21→21:00)
[2017-02-15] MEDS: LISINOPRIL 10 MG TAB PO SCH (08:22)
[2017-02-15] MEDS ORDERED: ATORVASTATIN 20 MG TAB PO SCH (09:00)
[2017-02-15] MEDS: KCL 20MEQ in NS 1000ML 1,000 ML IV SCH ×2 (10:17→21:01)
[2017-02-15] MEDS: METOCLOPRAMIDE INJ 10MG/2ML VIAL (J2765) IV PRN ×2 (10:33→22:22)
[2017-02-15] MEDS ORDERED: PHYTONADIONE 5 MG TAB PO ONE (12:45)
[2017-02-15] MEDS: HEPARIN SOD (PORCINE) 5000 UNITS/ML VIAL SQ SCH ×2 (15:04→21:00)
[2017-02-15] MEDS: ONDANSETRON 4MG/2ML VIAL (J2405) IV PRN (15:11)
[2017-02-15] MEDS: HumaLOG INSULIN (NovoLOG) PER UNIT SC SCH (20:33)
[2017-02-15] MEDS: ERTAPENEM SODIUM 1 GM in NS MINI-BAG PLUS 50 ML IV SCH (20:59)
[2017-02-15] MEDS: ATORVASTATIN 20 MG TAB PO SCH (21:00)
[2017-02-16] VITALS (17 sets, daily range): BP systolic 68–132; BP diastolic 30–60; O2SAT 96
[2017-02-16] MEDS: IPRATROPIUM 0.5MG/ALBUTEROL 2.5MG INH SOL UD 3ML (DUONEB)(J7620) NEB SCH ×4 (02:04→20:00)
[2017-02-16] MEDS: PERCOCET 5MG/325MG TAB PO PRN ×2 (02:36→20:35)
[2017-02-16] MEDS: HEPARIN SOD (PORCINE) 5000 UNITS/ML VIAL SQ SCH ×3 (05:46→20:33)
[2017-02-16] MEDS: PIPERACILLIN/TAZOBACTAM SOD 3.375 GM in D5W MINI-BAG PLUS 50 ML IV SCH ×2 (05:46→13:55)
[2017-02-16 06:45] LABS: INR 2.47
[2017-02-16 06:46] LABS: MEAN CORPUSCULAR HGB CONC 30.6 g/dl (32.0-36.5); MEAN CORPUSCULAR VOLUME 78.4 fl (80.0-96.0); RED CELL DISTRIBUTION WIDTH 16.2 % (11.5-14.5); WHITE BLOOD COUNT 20.1 K/mm3 (4.0-10.0)
[2017-02-16 07:01] LABS: CALCIUM LEVEL 7.5 MG/DL (8.5-10.1); CREATININE FOR GFR 1.31 MG/DL (0.55-1.02); GLOMERULAR FILTRATION RATE 47.2 (>58); POTASSIUM SERUM 2.7 MEQ/L (3.5-5.1)
[2017-02-16] MEDS: LISINOPRIL 10 MG TAB PO SCH (07:47)
[2017-02-16] MEDS: PANTOPRAZOLE 40MG TAB (PROTONIX) PO SCH (07:58)
[2017-02-16] MEDS: GABAPENTIN 300 MG CAP PO SCH ×3 (07:58→20:33)
[2017-02-16] MEDS: MAGNESIUM OXIDE 400 MG TAB (MAG-OX) PO SCH (07:58)
[2017-02-16] MEDS: KCL 20MEQ in NS 1000ML 1,000 ML IV SCH ×2 (07:59→17:59)
[2017-02-16] MEDS: FERROUS SULFATE 325MG TAB PO SCH (07:59)
[2017-02-16] MEDS: NORCO, ANEXSIA 5/325MG TABLET (HYDROcodone/ACETAMINOPHEN) PO PRN ×2 (07:59→14:23)
[2017-02-16] MEDS: SUCRALFATE SUSP 1GM/10ML UD PO SCH ×4 (07:59→20:33)
[2017-02-16] MEDS ORDERED: POTASSIUM CHLORIDE 10% LIQ 20 MEQ/15 ML UDC PO SCH (09:00)
[2017-02-16] MEDS ORDERED: GASTROGRAFIN SOLUTION 30ML (Q9963) PO ONE ×2 (10:00→11:00)
[2017-02-16] MEDS ORDERED: GASTROGRAFIN SOLUTION 30ML PO ONE (10:30)
[2017-02-16] MEDS ORDERED: LR 1,000 ML IV ONE ×2 (11:00→11:45)
[2017-02-16] MEDS ORDERED: LIDOCAINE 1% MDV 20ML VIAL As Ordered ONE (12:39)
[2017-02-16 13:02] LABS: BASO % 0.2 % (0.0-1.0); EOS # 0.1 K/mm3 (0.0-0.50); EOS % 0.4 % (0.0-3.0); LARGE UNSTAINED CELL # 0.2 K/mm3 (0.0-0.4); LARGE UNSTAINED CELL % 1.1 % (0.0-4.0); LYMPH % 9.2 % (24.0-44.0); MEAN CORPUSCULAR HEMOGLOBIN 23.4 pg (27.0-33.0); MEAN CORPUSCULAR HGB CONC 29.5 g/dl (32.0-36.5); MEAN CORPUSCULAR VOLUME 79.2 fl (80.0-96.0); MONO # 1.2 K/mm3 (0.0-0.8); MONO % 5.8 % (0.0-5.0); NEUTROPHILS # 16.7 K/mm3 (1.8-7.7); NEUTROPHILS % 83.3 % (36.0-66.0); PLATELET COUNT, AUTOMATED 517 k/mm3 (150-450); RED CELL DISTRIBUTION WIDTH 16.1 % (11.5-14.5); WHITE BLOOD COUNT 19.7 K/mm3 (4.0-10.0)
[2017-02-16 13:04] LABS: ALBUMIN 1.7 GM/DL (3.2-5.2); ALBUMIN/GLOBULIN RATIO 0.46 (1.00-1.93); CALCIUM LEVEL 6.8 MG/DL (8.5-10.1); CREATININE FOR GFR 1.15 MG/DL (0.55-1.02); GLOMERULAR FILTRATION RATE 54.8 (>58); MAGNESIUM LEVEL 1.4 MG/DL (1.8-2.4); POTASSIUM SERUM 3.1 MEQ/L (3.5-5.1); TOTAL PROTEIN 5.4 GM/DL (6.4-8.2)
[2017-02-16 13:24] LABS: ADD MORPHOLOGY? YES
[2017-02-16 13:41] LABS: ANISOCYTOSIS 1+; HYPOCHROMASIA 1+; MICROCYTOSIS 1+
[2017-02-16 13:47] LABS: INR 2.45
[2017-02-16] MEDS ORDERED: MAG SULF 1GM/100ML (MAG RUN) 1 GM in APPROPRIATE DILUENT 1 EA IV SCH (15:00)
[2017-02-16] MEDS ORDERED: NS 500 ML IV ONE (15:30)
--- NOTE | 2017-02-16 15:41 | REP ---
CT GUIDED ABDOMINAL ABSCESS DRAIN: The procedure was performed under the direct supervision of Dr. Mark. The patient has a history of a large incarcerated abdominal wall hernia between the right rectus and oblique muscles with two air fluid levels adjacent or connected, but only seen in part and suggesting abscess with some air bubbles around/within it. This was seen on a previous CAT scan from [facility] performed on 02/14/2017. The risks and benefits of the procedure were explained to the patient and informed consent was obtained. The abdominal abscess was localized using CT guidance. The skin was prepped and draped in a sterile fashion. 1% Xylocaine was used as a local anesthetic. Using CT guidance a 10 [place] skater APDL catheter was inserted using trocar technique. 500 mL of brown colored fluid was withdrawn with a sample sent to the lab for analysis. The catheter was affixed to the skin and a sterile dressing was applied. The catheter was connected to a gravity drainage bag. The patient tolerated the procedure well and there were no immediate complications. Reviewed by PRABHAKAR Keene 02/16/2017 04:15 PEdited and Signed by Cortez Mark MD 02/16/2017 04:42 P
[2017-02-16] MEDS: MEROPENEM INJ 1 GM in D5W MINI-BAG PLUS 100 ML IV SCH ×2 (16:17→23:24)
[2017-02-16] MEDS ORDERED: VANCOMYCIN HCL 1,000 MG, VIAL MATE ADAPTER 1 EACH in D5W 250 ML IV ONE (17:00)
[2017-02-16] MEDS ORDERED: MAG SULF 1GM/100ML (MAG RUN) 1 GM in APPROPRIATE DILUENT 1 EA IV ONE (18:00)
[2017-02-16] MEDS: VANCOMYCIN HCL 1,000 MG, VIAL MATE ADAPTER 1 EACH in D5W 250 ML IV SCH ×2 (20:08→23:25)
[2017-02-16] MEDS ORDERED: HYDROmorphone HCL 1 MG/ML SYRINGE (J1170) IV PRN (20:30)
[2017-02-16] MEDS: HumaLOG INSULIN (NovoLOG) PER UNIT SC SCH (20:32)
[2017-02-16] MEDS: ATORVASTATIN 20 MG TAB PO SCH (20:33)
--- NOTE | 2017-02-16 20:39 | PHACANCOPD ---
PHARMACY VANCOMYCIN DOSING Pt Demographics Demographics Patient Age:41 , Weight:191.600 , Gender: female Adjusted Body Weight Date: 02/16/17, Adjusted Body Weight: [108.08] Kg Events Past 24 Hours Events Past 24 Hours: YES: Fever, Elevation in WBC, Pending Diagnostics Vancomycin Vancomycin indication: SEPTIC SHOCK Vancomycin Target Ranges: 15-20 mcg/ml Vancomycin Load Y/N: Yes Load Dose Date Time Vancomycin Load Dose: 2G Date: 02/16/17 Time: 1600 Vancomycin Dose Date: 02/16/17. Current Vancomycin Dose: [1G IV Q8H] Intermittent Dosing?: No Labs Labs Item Value Date Time White Blood Count 19.7 K/mm3 H 02/16/17 1208 White Blood Count 20.1 K/mm3 H 02/16/17 0625 White Blood Count 18.0 K/mm3 H 02/15/17 0706 White Blood Count 18.8 K/mm3 H 02/14/172015 Lactic Acid Level 3.6 MMOL/L *H 02/16/17 1208 Lactic Acid Followup at 4 Hours 2.7 MMOL/L *H 02/16/17 1628 Creatinine 1.15 MG/DL H 02/16/17 1208 Creatinine 1.31 MG/DL H 02/16/17 0625 Micro Microbiology 02/16/17 Blood Culture, Received Pending 02/16/17 Blood Culture, Received Pending 02/16/17 Anaerobic Culture, Received Pending 02/16/17 MRSA Screen, Received Pending 02/16/17 Gram Stain - Final, Resulted 02/16/17 Abscess Culture, Resulted Pending Creatinine Clearance Date:02/16/17. Estimated Creatinine Clearance: [56.2ml/min]. Pending Labs Vancomycin trough scheduled 02/18/17 @0700 Assessment and Plan Maintaining Current Dose?: Yes Reason for dose change: No Dose Change Pharmacist Note Pharmacist Note Date: 02/16/17. Pharmacist note: Day #1 empiric merrem/vancomycin tx initiated with a 2g loading dose, followed by a maintenance regimen of 1g IV Q8H for the empiric treatment of septic shock with a RLQ abdominal abscess - aiming for a goal trough of 15-20mcg/ml. WBC and lactic acid are currently elevated. The patient has been febrile within the past 24 hours. No PMH of MRSA or vanco use here at [facility]. Scr has been elevated this admission with a baseline scr normally < 1. Blood and abscess cultures are pending. A vancomycin trough has been scheduled 02/18/17 @0700. We will continue to monitor and adjust dosing as needed. [facility] February 16, 2017 20:39
[2017-02-17] VITALS (8 sets, daily range): BP systolic 129–147; BP diastolic 60–79
[2017-02-17] MEDS: IPRATROPIUM 0.5MG/ALBUTEROL 2.5MG INH SOL UD 3ML (DUONEB)(J7620) NEB SCH ×4 (01:20→20:24)
[2017-02-17] MEDS: KCL 20MEQ in NS 1000ML 1,000 ML IV SCH (01:48)
[2017-02-17] MEDS: NORCO, ANEXSIA 5/325MG TABLET (HYDROcodone/ACETAMINOPHEN) PO PRN ×3 (01:50→18:24)
[2017-02-17 05:24] LABS: MEAN CORPUSCULAR HEMOGLOBIN 23.5 pg (27.0-33.0); MEAN CORPUSCULAR HGB CONC 29.3 g/dl (32.0-36.5); MEAN CORPUSCULAR VOLUME 80.2 fl (80.0-96.0); RED CELL DISTRIBUTION WIDTH 16.1 % (11.5-14.5); WHITE BLOOD COUNT 14.4 K/mm3 (4.0-10.0)
[2017-02-17 05:32] LABS: INR 2.04
[2017-02-17 05:35] LABS: ANION GAP 9 MEQ/L (8-16); BLOOD UREA NITROGEN 10 MG/DL (7-18); CALCIUM LEVEL 7.2 MG/DL (8.5-10.1); CARBON DIOXIDE LEVEL 26 MEQ/L (21-32); CHLORIDE LEVEL 105 MEQ/L (98-107); CREATININE FOR GFR 0.76 MG/DL (0.55-1.02); GLOMERULAR FILTRATION RATE > 60.0 (>58); GLUCOSE, FASTING 208 MG/DL (70-105); MAGNESIUM LEVEL 1.7 MG/DL (1.8-2.4); POTASSIUM SERUM 2.7 MEQ/L (3.5-5.1); SODIUM LEVEL 140 MEQ/L (136-145)
[2017-02-17] MEDS: MEROPENEM INJ 1 GM in D5W MINI-BAG PLUS 100 ML IV SCH ×3 (06:22→22:35)
[2017-02-17] MEDS: HEPARIN SOD (PORCINE) 5000 UNITS/ML VIAL SQ SCH (06:22)
[2017-02-17] MEDS: SUCRALFATE SUSP 1GM/10ML UD PO SCH ×4 (06:35→20:09)
[2017-02-17] MEDS: KCL 40MEQ in NS 1000ML 1,000 ML IV SCH ×2 (06:36→20:06)
[2017-02-17] MEDS ORDERED: MAG SULF 1GM/100ML (MAG RUN) 1 GM in APPROPRIATE DILUENT 1 EA IV SCH (08:00)
[2017-02-17] MEDS: VANCOMYCIN HCL 1,000 MG, VIAL MATE ADAPTER 1 EACH in D5W 250 ML IV SCH ×2 (08:35→18:03)
[2017-02-17] MEDS: GABAPENTIN 300 MG CAP PO SCH ×3 (08:37→20:06)
[2017-02-17] MEDS: PANTOPRAZOLE 40MG TAB (PROTONIX) PO SCH (08:37)
[2017-02-17] MEDS: FERROUS SULFATE 325MG TAB PO SCH (08:37)
[2017-02-17] MEDS: MAGNESIUM OXIDE 400 MG TAB (MAG-OX) PO SCH (08:38)
[2017-02-17] MEDS: LISINOPRIL 10 MG TAB PO SCH (08:40)
--- NOTE | 2017-02-17 10:11 | CR ---
DATE OF CONSULTATION: 02/16/2017 I was asked to consult by Dr. Osborn for evaluation of severe sepsis with intra-abdominal abscess following repair of an incarcerated hernia. Prisca is a 40-year morbidly obese female who was admitted by Dr. Sharma on 01/07/2017 for a small bowel obstruction with a strangulated small bowel internal hernia and intra-abdominal adhesions. The patient had an expiratory laparotomy with washout and extensive lysis of adhesions. Small-bowel resection was done with primary anastomosis at the area of the strangulation. The patient had a postoperative course complicated by pulmonary embolism and readmission on January 26 and discharged on February 02. She had progressively started to get better until a couple days prior to admission when she had noticed she was having increasing right lower quadrant abdominal pain with some erythema. She went to visit her parents at [place]. They took her to the operating room and from there she was transferred to [facility] emergency room. She was diagnosed with abdominal wall cellulitis and then developed an abscess in the right lower quadrant area. She was taken to interventional radiology this morning where she had 500 mL of bloody fluid drained and a drain was kept in place. Post intervention, she had hypotension with a blood pressure 68/48, although the patient states she was not dizzy and she did not have a headache. She felt that her blood pressure was misrecorded because it was not taken from her leg, which is usually the case. The patient states her fever has improved today. Yesterday, she was up to 101.2. She has no nausea, vomiting or diarrhea. She feels relatively well otherwise. She is sitting in the chair in the intensive care unit (ICU). After she developed hypotension with a blood pressure of 68/48, she received 2 liters of lactated Ringers and was transferred to the ICU. LABORATORIES: White count on admission was 18.8 and today was 19.7, hemoglobin 8, hematocrit 27.2, and platelets 517, with 83% neutrophils, 9% lymphocytes, 6% monocytes. Sodium 137, potassium 3.1, chloride 102, bicarb 22, BUN 19, creatinine 1.1, glucose 238, lactic acid 2.7 down from 3.6, calcium 6.8, magnesium 1.4, AST 10, ALT 10, alkaline phosphatase 152, total protein 5.4 and albumin 1.7. TSH is normal at 1.45. Blood cultures from 02/16/2017 pending, two sets. Anaerobic culture from the abscess fluid is pending. Aerobic cultures pending. Gram stain shows many white cells, gram positive rods, moderate gram positive cocci in chains. Methicillin-resistant Staphylococcus aureus (MRSA) screen is pending. IMAGING STUDY: CT drainage of the abscess showed a collection in the right lower quadrant which was drained by Archie Zelaya and there was about 500 mL of brown colored fluid withdrawn, sent to the lab and the catheter was affixed to the skin. ALLERGY: MORPHINE. MEDICATIONS: - hydromorphone 1 mg every four hours as needed - vancomycin 1 gram IV every 8 hours, which was started on 02/16/2017 - meropenem 1 gram IV every 8 hours - Lipitor 40 mg by mouth daily - heparin 5000 units subcutaneous every 8 hours - Protonix 40 mg daily - ferrous sulfate 325 mg by mouth daily - lisinopril 10 mg daily - magnesium oxide 400 mg daily - albuterol/Atrovent nebs - gabapentin 300 mg by mouth three times a day - Carafate 1 gram before meals and at bedtime - Zofran as needed The patient on admission from 02/14/2017 to 02/16/2017 received a combination of Zosyn and ertapenem, which have been discontinued after she was transferred to the ICU. IMPRESSION: This is a 41-year-old female status post repair of incarcerated small bowel hernia after she developed a small bowel obstruction. The patient's course has been complicated by a pulmonary embolism and now has a right lower quadrant abscess which has been drained and cultures have been sent. Post drainage procedure, the patient developed hypotension with a systolic blood pressure in the 60s, worsening lactic acidosis and fever. This could have been related to a transient bacteremia after she had the procedure done. After IV fluid 2 liters of lactated Ringers, her blood pressure has normalized. She looks well and is doing fairly well. She is currently on broad-spectrum antibiotic with IV vancomycin and meropenem. PLAN: Continue with current antibiotic. Will decide on course of antibiotic and choices depending on results of culture that will be resulted in the next couple of days. For the time being, I would keep her on the same without change. Continue with IV fluid. Monitor vitals and blood pressure. The patient may need long-term antibiotics.
[2017-02-17] MEDS: KCL 10MEQ IN 100ML SWI (KRUN) 10 MEQ in APPROPRIATE DILUENT 1 EA IV SCH ×10 (11:00→14:00)
[2017-02-17] MEDS: PERCOCET 5MG/325MG TAB PO PRN ×2 (12:55→21:49)
[2017-02-17] MEDS ORDERED: POTASSIUM CHLORIDE 10 MEQ SR TABLET PO ONE (14:45)
[2017-02-17] MEDS: WARFARIN SOD 7.5 MG TAB PO SCH (17:05)
--- NOTE | 2017-02-17 17:46 | IPN ---
DATE: 02/17/2017 Prisca was seen in the intensive care unit (ICU) today. She is doing fairly well. She only has complaint of right lower quadrant abdominal pain, but otherwise feeling well. She has had no nausea, vomiting, or fever. She states that she has had diarrhea since the surgery six weeks ago. Maximum temperature (T-max) yesterday was 101.4. HEART: Normal S1, S2 with no murmurs, rubs or gallops. LUNGS: Clear. No wheezes, rales, or rhonchi. ABDOMEN: Morbidly obese, soft, nontender. Right lower quadrant redness with a drain with bloody purulent discharge. LABORATORY DATA: White count is 14.4, hemoglobin 7.9, hematocrit 26.9, and platelets 526. Sodium 140, potassium 2.7, chloride 105, bicarbonate 26, BUN 10, creatinine 0.76, glucose 208, lactic acid was 1.8 this morning, calcium 7.2, magnesium 1.7. MRSA screen was negative. Blood cultures two sets were negative. Culture from the abdominal wound, aerobic and anaerobic are still pending. IMPRESSION: 1. Abdominal abscess, status post repair of incarcerated small bowel hernia. The patient had severe sepsis yesterday which has resolved at this point. She is on broad-spectrum antibiotic including IV vancomycin and meropenem. Cultures are still pending and we will de-escalate therapy based on that. 2. Status post repair of incarcerated small bowel hernia, stable. PLAN: Continue current antibiotic. Vancomycin trough has not been drawn yet. She has received a total of three doses so far.
[2017-02-17] MEDS: ATORVASTATIN 20 MG TAB PO SCH (20:06)
[2017-02-17] MEDS: POTASSIUM CHLORIDE 10 MEQ SR TABLET PO SCH (20:07)
[2017-02-17] MEDS: HumaLOG INSULIN (NovoLOG) PER UNIT SC SCH (21:47)
[2017-02-18] MEDS: VANCOMYCIN HCL 1,000 MG, VIAL MATE ADAPTER 1 EACH in D5W 250 ML IV SCH ×3 (00:15→15:49)
[2017-02-18 02:00] VITALS: BP 137/57
[2017-02-18] MEDS: IPRATROPIUM 0.5MG/ALBUTEROL 2.5MG INH SOL UD 3ML (DUONEB)(J7620) NEB SCH ×4 (02:00→19:24)
[2017-02-18] MEDS: NORCO, ANEXSIA 5/325MG TABLET (HYDROcodone/ACETAMINOPHEN) PO PRN ×2 (05:52→20:48)
[2017-02-18 06:00] VITALS: BP 125/60
[2017-02-18] MEDS: MEROPENEM INJ 1 GM in D5W MINI-BAG PLUS 100 ML IV SCH ×3 (06:34→23:11)
[2017-02-18] MEDS: KCL 40MEQ in NS 1000ML 1,000 ML IV SCH ×2 (06:34→11:50)
[2017-02-18 07:41] LABS: INR 2.15
[2017-02-18 07:53] LABS: ANION GAP 10 MEQ/L (8-16); BLOOD UREA NITROGEN 6 MG/DL (7-18); CARBON DIOXIDE LEVEL 23 MEQ/L (21-32); CHLORIDE LEVEL 108 MEQ/L (98-107); CREATININE FOR GFR 0.65 MG/DL (0.55-1.02); GLOMERULAR FILTRATION RATE > 60.0 (>58); GLUCOSE, FASTING 176 MG/DL (70-105); MEAN CORPUSCULAR HEMOGLOBIN 23.2 pg (27.0-33.0); MEAN CORPUSCULAR HGB CONC 28.8 g/dl (32.0-36.5); MEAN CORPUSCULAR VOLUME 80.8 fl (80.0-96.0); POTASSIUM SERUM 3.7 MEQ/L (3.5-5.1); RED CELL DISTRIBUTION WIDTH 16.1 % (11.5-14.5); SODIUM LEVEL 141 MEQ/L (136-145); WHITE BLOOD COUNT 9.5 K/mm3 (4.0-10.0)
[2017-02-18] MEDS: SUCRALFATE SUSP 1GM/10ML UD PO SCH ×4 (08:26→20:47)
[2017-02-18] MEDS: POTASSIUM CHLORIDE 10 MEQ SR TABLET PO SCH ×2 (08:27→20:48)
[2017-02-18] MEDS: MAGNESIUM OXIDE 400 MG TAB (MAG-OX) PO SCH (08:27)
[2017-02-18] MEDS: PANTOPRAZOLE 40MG TAB (PROTONIX) PO SCH (08:27)
[2017-02-18] MEDS: FERROUS SULFATE 325MG TAB PO SCH (08:27)
[2017-02-18] MEDS: GABAPENTIN 300 MG CAP PO SCH ×3 (08:27→20:48)
[2017-02-18] MEDS: LISINOPRIL 10 MG TAB PO SCH (08:42)
[2017-02-18 10:00] VITALS: BP 149/79
[2017-02-18] MEDS: PERCOCET 5MG/325MG TAB PO PRN (13:27)
[2017-02-18 14:00] VITALS: BP 136/65
--- NOTE | 2017-02-18 14:26 | IPN ---
DATE: 02/18/2017 Prisca is doing better. She was transferred from the intensive care unit (ICU) to the regular floor. She denies any nausea, vomiting, diarrhea. She does have abdominal pain in the right lower quadrant where the abscesses is, which is the same. She is eating well. White count is 9.5 down from 20,000, hemoglobin 8.5, hematocrit 29.6, platelets 561. Sodium 141, potassium 3.7, chloride 108, bicarbonate 23, BUN 6, creatinine 0.65, glucose 176, calcium 8, PT 24.1, INR 2.15, vancomycin trough is 14.2. CURRENT MEDICATIONS: Currently day #3 of IV vancomycin and Zosyn. IMPRESSION: 1. Intra-abdominal abscess, most likely polymicrobial from incarcerated bowel. The patient's cultures are still pending. Doing much better and defervesced and white count is normal. She still has significant drainage in the back. There was 290 mL yesterday. 2. Morbid obesity. 3. Hyperlipidemia. 4. History of deep vein thrombosis (DVT), on Coumadin. PLAN: Continue same management. We will de-escalate therapy as soon as we have the results of the abdominal culture.
--- NOTE | 2017-02-18 15:10 | PHACANCOPD ---
PHARMACY VANCOMYCIN DOSING Pt Demographics Demographics Patient Age:41 , Weight:165.500 , Gender: female Adjusted Body Weight Date: 02/16/17, Adjusted Body Weight: [108.08] Kg Events Past 24 Hours Events Past 24 Hours: NO: Dialysis, Diuretic Therapy, Change in CrCl, Fever, Elevation in WBC, Pending Diagnostics, Pending Procedures, Other Vancomycin Vancomycin indication: SEPTIC SHOCK Vancomycin Target Ranges: 15-20 mcg/ml Vancomycin Load Y/N: Yes Load Dose Date Time Vancomycin Load Dose: 2G Date: 02/16/17 Time: 1600 Vancomycin Dose Date: 02/18/17. Current Vancomycin Dose: [1gm IV q8h@16] Date: 02/16/17. Current Vancomycin Dose: [1G IV Q8H] Intermittent Dosing?: No Labs Labs Vital Signs Label Value Date Time Patient Temperature 97.9 degrees F 02/18/17 1000 Temperature Source Temporal 02/18/17 1000 Item Value Date Time White Blood Count 19.7 K/mm3 H 02/16/17 1208 White Blood Count 14.4 K/mm3 H 02/17/17 0452 White Blood Count 9.5 K/mm3 02/18/17 0716 Creatinine 0.76 MG/DL 02/17/17 0452 Creatinine 0.65 MG/DL 02/18/17 0716 Vancomycin Level Trough 14.2 UG/ML 02/18/17 0716 Micro Microbiology 02/16/17 Blood Culture - Preliminary, Resulted No growth after 24 hours . All specim... 02/16/17 Blood Culture - Preliminary, Resulted No Growth after 48 hours. All Specime... 02/16/17 Anaerobic Culture, Received Pending 02/16/17 MRSA Screen - Final, Complete 02/16/17 Gram Stain - Final, Resulted 02/16/17 Abscess Culture, Resulted Pending Creatinine Clearance Date:02/16/17. Estimated Creatinine Clearance: [56.2ml/min]. Pending Labs Vancomycin trough scheduled 02/18/17 @0700 Assessment and Plan Maintaining Current Dose?: Yes Reason for dose change: No Dose Change Pharmacist Note Pharmacist Note 02/18: Vancomycin trough came back at 14.2 today. Her WBC is within normal limits, her SCr has improved and she is afebrile. Her micro is still pending at this time. We will continue her on Vancomycin 1gm IV q8h for now, and look to deescalate after her micro is final. We will continue to monitor and make adjustments as necessary. Date: 02/16/17. Pharmacist note: Day #1 empiric merrem/vancomycin tx initiated with a 2g loading dose, followed by a maintenance regimen of 1g IV Q8H for the empiric treatment of septic shock with a RLQ abdominal abscess - aiming for a goal trough of 15-20mcg/ml. WBC and lactic acid are currently elevated. The patient has been febrile within the past 24 hours. No PMH of MRSA or vanco use here at [facility]. Scr has been elevated this admission with a baseline scr normally < 1. Blood and abscess cultures are pending. A vancomycin trough has been scheduled 02/18/17 @0700. We will continue to monitor and adjust dosing as needed. [facility] February 18, 2017 15:10
[2017-02-18] MEDS: WARFARIN SOD 7.5 MG TAB PO SCH (17:00)
[2017-02-18] MEDS: ATORVASTATIN 20 MG TAB PO SCH (20:48)
[2017-02-18] MEDS: HumaLOG INSULIN (NovoLOG) PER UNIT SC SCH (20:49)
[2017-02-18 22:00] VITALS: BP 139/65
[2017-02-18] MEDS: NYSTATIN 100,000 UNITS/GM TOPICAL PWD 15 GM TOP SCH (23:11)
[2017-02-19] MEDS: VANCOMYCIN HCL 1,000 MG, VIAL MATE ADAPTER 1 EACH in D5W 250 ML IV SCH ×2 (00:32→08:12)
[2017-02-19] MEDS: KCL 40MEQ in NS 1000ML 1,000 ML IV SCH (00:32)
[2017-02-19 02:00] VITALS: BP 138/65
[2017-02-19] MEDS: IPRATROPIUM 0.5MG/ALBUTEROL 2.5MG INH SOL UD 3ML (DUONEB)(J7620) NEB SCH ×2 (03:05→07:07)
[2017-02-19] MEDS: PERCOCET 5MG/325MG TAB PO PRN (05:15)
[2017-02-19] MEDS: METOCLOPRAMIDE INJ 10MG/2ML VIAL (J2765) IV PRN (05:15)
[2017-02-19 06:00] VITALS: BP 141/67
[2017-02-19 06:03] LABS: INR 2.76
[2017-02-19 06:04] LABS: MEAN CORPUSCULAR HEMOGLOBIN 23.7 pg (27.0-33.0); MEAN CORPUSCULAR HGB CONC 29.5 g/dl (32.0-36.5); MEAN CORPUSCULAR VOLUME 80.3 fl (80.0-96.0); RED CELL DISTRIBUTION WIDTH 16.2 % (11.5-14.5); WHITE BLOOD COUNT 9.1 K/mm3 (4.0-10.0)
[2017-02-19] MEDS: MEROPENEM INJ 1 GM in D5W MINI-BAG PLUS 100 ML IV SCH (06:28)
[2017-02-19 06:32] LABS: ANION GAP 10 MEQ/L (8-16); BLOOD UREA NITROGEN 5 MG/DL (7-18); CALCIUM LEVEL 7.4 MG/DL (8.5-10.1); CARBON DIOXIDE LEVEL 24 MEQ/L (21-32); CHLORIDE LEVEL 109 MEQ/L (98-107); CREATININE FOR GFR 0.59 MG/DL (0.55-1.02); GLOMERULAR FILTRATION RATE > 60.0 (>58); GLUCOSE, FASTING 150 MG/DL (70-105); POTASSIUM SERUM 4.1 MEQ/L (3.5-5.1); SODIUM LEVEL 143 MEQ/L (136-145)
[2017-02-19] MEDS: SUCRALFATE SUSP 1GM/10ML UD PO SCH ×2 (08:12→12:23)
[2017-02-19 09:36] VITALS: BP 107/55
[2017-02-19] MEDS: MAGNESIUM OXIDE 400 MG TAB (MAG-OX) PO SCH (11:03)
[2017-02-19] MEDS: POTASSIUM CHLORIDE 10 MEQ SR TABLET PO SCH (11:03)
[2017-02-19] MEDS: FERROUS SULFATE 325MG TAB PO SCH (11:03)
[2017-02-19 11:04] VITALS: BP 107/55
[2017-02-19] MEDS: PANTOPRAZOLE 40MG TAB (PROTONIX) PO SCH (11:04)
[2017-02-19] MEDS: LISINOPRIL 10 MG TAB PO SCH (11:04)
[2017-02-19] MEDS: GABAPENTIN 300 MG CAP PO SCH (11:04)
[2017-02-19] MEDS: NYSTATIN 100,000 UNITS/GM TOPICAL PWD 15 GM TOP SCH (11:06)
[2017-02-19] MEDS ORDERED: BACT800T5 PO (11:13)
--- NOTE | 2017-02-21 08:36 | DSES ---
DATE OF ADMISSION: 02/14/2017 DATE OF DISCHARGE: 02/19/2017 ADMISSION DIAGNOSIS: Intra-abdominal abscess. DISCHARGE DIAGNOSIS: Intra-abdominal abscess. HOSPITAL COURSE: The patient is a 41-year-old female who presented status post extensive exploratory laparotomy for a strangulated hernia that require bowel resection about 6 weeks ago. She came in the hospital after having a CT scan at an outside facilities showing there was possible abscess in the right lower quadrant. She was having some pain and warmth with some increased swelling in her right side. I had just seen her in the office the week before. There were no difficulties then or problems with her incision sites. However with this new finding, there is a concern for abscess, therefore she was sent here for evaluation. In the ER she had a white count of 18.8. Also had review of her outside CT, which did confirm likelihood of a possible abscess. Due to a complicated postop pulmonary embolus (PE) that she had about 3 weeks ago, she is on Coumadin and her INR was supratherapeutic, so she was unable to have the drain placed right away. She was started on empiric antibiotics for the first 2 days. During that time, her white count went up to 20.1. She showed signs of sepsis with some fevers overnight. She did eventually have the drain placed on 02/16/2017. Once the drain was placed, she had a large amount of brown purulent drainage removed, about 500 mL initially. Following that she immediately started to feel better. No more fevers. Following that her white count slowly returned back to normal 19.7 later that afternoon, 14.4 the next morning and 9.55 by the morning 02/18/2017. She had no other complications after the drain was placed. She had good output. Labs returned to normal. No fevers. Vitals are all stable. She was kept in the hospital for a few days until her cultures came back from the abscess, which finally resumed on 02/19/2017. The culture showed that she had Klebsiella pneumonia, Citrobacter, Streptococcal viridans group, Enterococcus avium, Corneae Bacterium species any yeastlike organisms. She had Dr. Guo following her who recommended discharge home with Bactrim DS. She was then discharged home on 02/19/2017 with Bactrim and will follow up with me in the office to evaluate her drain. Do the persistent output continuing to be purulent, the drain was left in place when she was discharged home. CONSULTATIONS: 1. Hospitalist for medical management. 2. Infectious disease. PLAN: Discharge home on 02/19/2017 with resuming her Coumadin and all of her home medications and new medications, started on Bactrim DS. Continue to ambulate, eat a regular diet. Continue to empty the drain daily and record output followup with me in the office next . I will evaluate the drain output volumes as well as the colors and determine on whether this needs to be removed or not.
== END 2017-02-19 12:44 | disposition home health service (06) | DRG 951 ==
LOC: M ED 19:46 → M ED INP 20:20 → M MSPAV 22:06 → M ICU 02-16 15:41 → M MSPAV 02-17 18:44
PROVIDERS: ADMIT Surgery; ATTEND Surgery
PROC: 0K9K30Z Drainage of Right Abdomen Muscle with Drainage Device, Percutaneous Approach (ICD-10-PCS; principal; 2017-02-16)
PROC: 30233K1 Transfusion of Nonautologous Frozen Plasma into Peripheral Vein, Percutaneous Approach (ICD-10-PCS; 2017-02-16)
DX: K65.1 Peritoneal abscess (principal); R65.20 Severe sepsis without septic shock; Z68.44 Body mass index [BMI] 60.0-69.9, adult; L03.311 Cellulitis of abdominal wall; E11.9 Type 2 diabetes mellitus without complications; B95.4 Other streptococcus as the cause of diseases classified elsewhere; A41.9 Sepsis, unspecified organism; E66.01 Morbid (severe) obesity due to excess calories; B97.19 Other enterovirus as the cause of diseases classified elsewhere; K43.9 Ventral hernia without obstruction or gangrene; E78.5 Hyperlipidemia, unspecified; Z86.711 Personal history of pulmonary embolism; Z90.49 Acquired absence of other specified parts of digestive tract; Z98.51 Tubal ligation status; Z86.718 Personal history of other venous thrombosis and embolism; Z79.4 Long term (current) use of insulin; Z79.01 Long term (current) use of anticoagulants; Z79.899 Other long term (current) drug therapy; Z98.0 Intestinal bypass and anastomosis status; Z88.5 Allergy status to narcotic agent; B96.1 Klebsiella pneumoniae [K. pneumoniae] as the cause of diseases classified elsewhere; B96.89 Other specified bacterial agents as the cause of diseases classified elsewhere; I95.81 Postprocedural hypotension

== ENCOUNTER → 2017-03-11 | Outpatient (REF) ==
[~2017-03-11] MED LIST changes: +BACT800T5 PO; +MAGN500T5 PO; +ONDA4TAB6 PO; +OXYC1TAB23 PO
== END ==
LOC: M LAB 15:56
DX: Z02.89 Encounter for other administrative examinations (principal)